=== PATIENT | female | born 1965 | race Caucasian/White ===

== ENCOUNTER → 2017-06-21 | Outpatient (CLI) | payer OTHER ==
[2016-07-21 16:15] VITALS: BP 130/54
[~2017-06-21] MED LIST: NS 100 ML IV 100 ML IV ONE
[2017-06-21 11:33] LABS: BASOPHILS # (AUTO) 0.1 X10^3/uL (0.0-0.1); BASOPHILS % (AUTO) 0.8 % (0.2-1.0); EOSINOPHILS % (AUTO) 0.3 % (0.9-2.9); HEMATOCRIT 35.3 % (36.0-47.0); HEMOGLOBIN 11.9 g/dL (12.0-16.0); LYMPHOCYTES # (AUTO) 1.7 X10^3/uL (1.3-2.9); LYMPHOCYTES % (AUTO) 19.8 % (21.0-51.0); MEAN CORPUSCULAR HEMOGLOBIN 27.9 pg (27.0-34.0); MEAN CORPUSCULAR HGB CONC 33.6 g/dL (33.0-35.0); MEAN CORPUSCULAR VOLUME 82.9 fL (80.0-100.0); MEAN PLATELET VOLUME 6.9 fL (7.4-11.0); MONOCYTES # (AUTO) 0.6 x10^3/uL (0.3-0.8); MONOCYTES % (AUTO) 6.9 % (0.0-13.0); NEUTROPHILS # (AUTO) 6.3 x10^3/uL (2.2-4.8); NEUTROPHILS % (AUTO) 72.2 % (42.0-75.0); PLATELET COUNT 582 X10^3/uL (150.0-450.0); RED BLOOD COUNT 4.26 X10^6/uL (3.5-5.4); RED CELL DISTRIBUTION WIDTH 17.2 % (11.6-16.5); WHITE BLOOD COUNT 8.7 X10^3/uL (3.6-10.0)
[2017-06-21 11:38] LABS: ALANINE AMINOTRANSFERASE 47 Units/L (12-78); ALKALINE PHOSPHATASE 95 Units/L (46-116); ASPARTATE AMINO TRANSFERASE 35 Units/L (15-37); BLOOD UREA NITROGEN 16 mg/dL (7-18); CALCIUM 9.2 mg/dL (8.5-10.1); CARBON DIOXIDE 24.1 mmol/L (21-32); CHLORIDE 107 mmol/L (98-107); CREATININE 0.91 mg/dL (0.55-1.02); SODIUM 142 mmol/L (136-145); TOTAL PROTEIN 7.4 g/dL (6.4-8.2); eGFR BLACK RACES > 60 (>60); eGFR NON BLACK RACES > 60 (>60)
[2017-06-21 11:39] LABS: ALBUMIN 2.9 g/dL (3.4-5.0); COR CA(FOR HYPOALB) 10.1 mg/dL (8.5-10.1)
== END | disposition home or self-care (01) | DRG 204 ==
LOC: RAD 10:47
PROVIDERS: ATTEND Internal Medicine
DX: R06.02 Shortness of breath (principal); R50.9 Fever, unspecified; Z87.09 Personal history of other diseases of the respiratory system; J47.9 Bronchiectasis, uncomplicated
CPT/HCPCS: 36415; 71260; 80053; 85025; A4222

== ENCOUNTER 2018-06-05 11:50 | Observation (INO) ==
[2018-06-05 13:45] LABS: BASOPHILS % (AUTO) 0.7 % (0.2-1.0); EOSINOPHILS # (AUTO) 0.2 x10^3/uL (0.0-0.2); HEMATOCRIT 39.7 % (36.0-47.0); HEMOGLOBIN 13.1 g/dL (12.0-16.0); LYMPHOCYTES # (AUTO) 0.7 X10^3/uL (1.3-2.9); LYMPHOCYTES % (AUTO) 12.7 % (21.0-51.0); MEAN CORPUSCULAR HEMOGLOBIN 24.5 pg (27.0-34.0); MEAN CORPUSCULAR HGB CONC 32.9 g/dL (33.0-35.0); MEAN CORPUSCULAR VOLUME 74.5 fL (80.0-100.0); MEAN PLATELET VOLUME 7.2 fL (7.4-11.0); MONOCYTES # (AUTO) 0.5 x10^3/uL (0.3-0.8); MONOCYTES % (AUTO) 8.9 % (0.0-13.0); NEUTROPHILS # (AUTO) 4.4 x10^3/uL (2.2-4.8); NEUTROPHILS % (AUTO) 74.7 % (42.0-75.0); PLATELET COUNT 331 X10^3/uL (150.0-450.0); RED BLOOD COUNT 5.33 X10^6/uL (3.5-5.4); RED CELL DISTRIBUTION WIDTH 22.5 % (11.6-16.5); WHITE BLOOD COUNT 5.9 X10^3/uL (3.6-10.0)
[2018-06-05] MEDS: NS 1000 ML 1,000 ML IV SCH (13:49)
[2018-06-05 13:57] LABS: ALANINE AMINOTRANSFERASE 42 Units/L (12-78); ALBUMIN 3.4 g/dL (3.4-5.0); ALKALINE PHOSPHATASE 92 Units/L (46-116); ASPARTATE AMINO TRANSFERASE 28 Units/L (15-37); BLOOD UREA NITROGEN 7 mg/dL (7-18); CARBON DIOXIDE 29.7 mmol/L (21-32); CHLORIDE 105 mmol/L (98-107); CREATININE 0.93 mg/dL (0.55-1.02); SODIUM 143 mmol/L (136-145); TOTAL PROTEIN 7.9 g/dL (6.4-8.2); eGFR NON BLACK RACES > 60 (>60)
[2018-06-05] MEDS ORDERED: PHARMACY CONSULT - DOSE _____ XX SCH (14:00)
[2018-06-05 14:21] LABS: ANISOCYTOSIS 2+; PLATELET MORPHOLOGY COMMENT NORMAL (NORMAL)
[2018-06-05 14:45] VITALS: BMI 28.5
[2018-06-05] MEDS: ZOVIRAX IV SCH ×2 (14:57→21:32)
[2018-06-05] MEDS: NS IV SCH ×2 (14:57→21:32)
[2018-06-05] MEDS ORDERED: NS IV SCH (15:00)
[2018-06-05] MEDS ORDERED: ZOVIRAX IV SCH (15:00)
[2018-06-05] MEDS ORDERED: NEURONTIN CAP 300 MG PO ONE (15:26)
[2018-06-05] MEDS: NEURONTIN CAP 300 MG PO SCH ×2 (15:27→21:28)
[2018-06-06] MEDS: NS 1000 ML 1,000 ML IV SCH ×3 (04:00→21:02)
[2018-06-06 05:10] LABS: BASOPHILS % (AUTO) 0.8 % (0.2-1.0); EOSINOPHILS # (AUTO) 0.1 x10^3/uL (0.0-0.2); EOSINOPHILS % (AUTO) 3.1 % (0.9-2.9); HEMATOCRIT 35.4 % (36.0-47.0); HEMOGLOBIN 11.8 g/dL (12.0-16.0); LYMPHOCYTES # (AUTO) 1.1 X10^3/uL (1.3-2.9); LYMPHOCYTES % (AUTO) 21.9 % (21.0-51.0); MEAN CORPUSCULAR HEMOGLOBIN 24.5 pg (27.0-34.0); MEAN CORPUSCULAR HGB CONC 33.4 g/dL (33.0-35.0); MEAN CORPUSCULAR VOLUME 73.3 fL (80.0-100.0); MEAN PLATELET VOLUME 7.4 fL (7.4-11.0); MONOCYTES # (AUTO) 0.8 x10^3/uL (0.3-0.8); MONOCYTES % (AUTO) 15.9 % (0.0-13.0); NEUTROPHILS # (AUTO) 2.8 x10^3/uL (2.2-4.8); NEUTROPHILS % (AUTO) 58.3 % (42.0-75.0); PLATELET COUNT 294 X10^3/uL (150.0-450.0); RED BLOOD COUNT 4.83 X10^6/uL (3.5-5.4); RED CELL DISTRIBUTION WIDTH 21.8 % (11.6-16.5); WHITE BLOOD COUNT 4.8 X10^3/uL (3.6-10.0)
[2018-06-06 05:25] LABS: ALANINE AMINOTRANSFERASE 35 Units/L (12-78); ALBUMIN 2.9 g/dL (3.4-5.0); ALKALINE PHOSPHATASE 81 Units/L (46-116); ASPARTATE AMINO TRANSFERASE 24 Units/L (15-37); BLOOD UREA NITROGEN 6 mg/dL (7-18); CALCIUM 8.4 mg/dL (8.5-10.1); CARBON DIOXIDE 27.6 mmol/L (21-32); CHLORIDE 107 mmol/L (98-107); COR CA(FOR HYPOALB) 9.3 mg/dL (8.5-10.1); CREATININE 0.78 mg/dL (0.55-1.02); SODIUM 143 mmol/L (136-145); TOTAL PROTEIN 6.9 g/dL (6.4-8.2); eGFR NON BLACK RACES > 60 (>60)
[2018-06-06] MEDS: NEURONTIN CAP 300 MG PO SCH ×3 (05:25→21:29)
[2018-06-06] MEDS: ZOVIRAX IV SCH ×3 (05:25→21:32)
[2018-06-06] MEDS: NS IV SCH ×3 (05:25→21:32)
[2018-06-06 05:37] LABS: ANISOCYTOSIS 1+; HYPOCHROMASIA SLIGHT; MICROCYTOSIS SLIGHT; PLATELET MORPHOLOGY COMMENT NORMAL (NORMAL)
[2018-06-06] MEDS: PriLOSEC PO SCH ×2 (10:03→21:30)
[2018-06-06] MEDS: [UNRECOGNIZED DRUG - OTHER] PO SCH (10:03)
[2018-06-06] MEDS: SYNTHROID 150 mcg TAB PO SCH (10:03)
[2018-06-06] MEDS: PREDNISONE TAB 5 MG PO SCH (10:03)
[2018-06-06] MEDS ORDERED: XYLOCAINE OINT 5% TOP PRN (10:38)
[2018-06-06] MEDS: ZOVIRAX EXT SCH ×2 (10:51→21:43)
--- NOTE | 2018-06-06 21:16 | DR.H&P ---
H&P - History & Physical for Day of: H&P Date: 06/05/18 - Chief Complaint Chief Complaint: SHINGLES - History of Present Illness History of Present Illness: IS A 53 YEAR OLD PATIENT OF OURS WHO PRESENTED TO THE HOSPITAL A DIRECT ADMISSION FOR AN EXACERBATION OF SHINGLES. PATIENT REPORTS THAT SHE NOTICED BLISTERS ON HER CHEST TUESDAY. BY TUESDAY, THEY HAD BEGAN TO SPREAD TO THE FLANK AND RIGHT SIDE BACK. SHE BEGAN WITH PAIN TO AREA ON TUESDAY. SHE REPORTS THAT SHE WAS PRESCRIBED VALTREX IN THE ER OVER THE WEEKEND, BUT RASH CONTINUED TO SPREAD. 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 SHE WAS ADMITTED FOR TREATMENT WITH IV ACYCLOVIR AND STEROIDS. ON ADMISSION, VITALS WERE 98.9-110-20-97%-137/83. LABS WERE OBTAINED. SHE IS HEMODYNAMICALLY STABLE. WE PLAN TO FOLLOW UP WITH AM LABS AND CONTINUE TO MONITOR PATIENT. - Past Medical History Additional Medical History: LUNG CANCER WITH METS TO THE BREAST AND BRAIN - Past Surgical History Surgical History: TAX APPRAISER Surgery, Thyroidectomy - Family History Family Medical History: Diabetes Mellitus, Cancer, Heart Failure, Hypertension - Social History Does any household member use tobacco: No Alcohol Use: None Drug Use: None - Medications Home Medications: laytex Adverse Reaction (Uncoded 06/05/18 13:52) CONTINUE taking the following medications brigatinib [Alunbrig] 1 tab PO DAILY 06/05/18 [History] gabapentin 1 cap PO TID 06/05/18 [History] levothyroxine [Synthroid] 1 tab PO DAILY 06/05/18 [History] omeprazole 1 cap PO BID 06/05/18 [History] prednisone 1 tab PO DAILY 06/05/18 [History] valacyclovir 1 tab PO TID 06/05/18 [History] - Review of Systems Constitutional: No Symptoms Reported Eyes: No Symptoms Reported ENT: No Symptoms Reported Respiratory: No Symptoms Reported Cardiovascular: No Symptoms Reported Gastrointestinal: No Symptoms Reported Genitourinary: No Symptoms Reported Musculoskeletal: No Symptoms Reported Skin: See HPI, Lesions, Wound Neurological: No Symptoms Reported - Physical Exam Vital Signs: Temperature 98 F Pulse Rate [Left Brachial] 89 Respiratory Rate 18 Blood Pressure [Right Arm] 132/50 Blood Pressure [Left Arm] 137/77 Blood Pressure 130/54 O2 Sat by Pulse Oximetry 97 Oriented: Normal Eyes: Normal Ear: Normal Nose: Normal Throat: Normal Respiratory: Clear Throughout Cardiovascular: Normal : Normal Auscultation: Bowel Sounds: Normal Palpation: Normal Tenderness: Normal Skin: Rash, Vesicular, Red, Wound Musculoskeletal: Normal Psychiatric: Normal Mood Description: Calm Affect: Normal Speech Pattern: Clear - Assessment/Plan (1) Shingles rash Qualifiers: Herpes zoster complications: without complications Qualified Code(s): B02.9 - Zoster without complications Status: Acute Plan: ACYCLOVIR IV, PREDNISONE, CONTINUE TO MONITOR - Allergies Allergies/Adverse Reactions: Allergies Allergy/AdvReac Type Severity Reaction Status Date / Time laytex AdvReac Uncoded 06/05/18 13:52
[2018-06-07 05:20] LABS: BASOPHILS % (AUTO) 0.8 % (0.2-1.0); EOSINOPHILS # (AUTO) 0.2 x10^3/uL (0.0-0.2); EOSINOPHILS % (AUTO) 3.8 % (0.9-2.9); HEMATOCRIT 34.8 % (36.0-47.0); HEMOGLOBIN 11.6 g/dL (12.0-16.0); LYMPHOCYTES # (AUTO) 1.1 X10^3/uL (1.3-2.9); LYMPHOCYTES % (AUTO) 21.5 % (21.0-51.0); MEAN CORPUSCULAR HEMOGLOBIN 24.5 pg (27.0-34.0); MEAN CORPUSCULAR HGB CONC 33.2 g/dL (33.0-35.0); MEAN CORPUSCULAR VOLUME 73.7 fL (80.0-100.0); MEAN PLATELET VOLUME 7.5 fL (7.4-11.0); MONOCYTES # (AUTO) 0.8 x10^3/uL (0.3-0.8); MONOCYTES % (AUTO) 16.2 % (0.0-13.0); NEUTROPHILS # (AUTO) 2.8 x10^3/uL (2.2-4.8); NEUTROPHILS % (AUTO) 57.7 % (42.0-75.0); PLATELET COUNT 282 X10^3/uL (150.0-450.0); RED BLOOD COUNT 4.72 X10^6/uL (3.5-5.4); RED CELL DISTRIBUTION WIDTH 21.9 % (11.6-16.5); WHITE BLOOD COUNT 4.9 X10^3/uL (3.6-10.0)
[2018-06-07] MEDS: ZOVIRAX EXT SCH (05:28)
[2018-06-07] MEDS: ZOVIRAX IV SCH (05:28)
[2018-06-07] MEDS: NS IV SCH (05:28)
[2018-06-07] MEDS: NEURONTIN CAP 300 MG PO SCH (05:28)
[2018-06-07 05:39] LABS: ANISOCYTOSIS 1+; PLATELET MORPHOLOGY COMMENT NORMAL (NORMAL)
[2018-06-07 05:40] LABS: ALANINE AMINOTRANSFERASE 37 Units/L (12-78); ALBUMIN 2.9 g/dL (3.4-5.0); ALKALINE PHOSPHATASE 80 Units/L (46-116); ASPARTATE AMINO TRANSFERASE 24 Units/L (15-37); BLOOD UREA NITROGEN 4 mg/dL (7-18); CALCIUM 8.6 mg/dL (8.5-10.1); CARBON DIOXIDE 27.6 mmol/L (21-32); CHLORIDE 108 mmol/L (98-107); COR CA(FOR HYPOALB) 9.5 mg/dL (8.5-10.1); CREATININE 0.76 mg/dL (0.55-1.02); SODIUM 143 mmol/L (136-145); TOTAL PROTEIN 6.7 g/dL (6.4-8.2); eGFR NON BLACK RACES > 60 (>60)
[2018-06-07] MEDS: NS 1000 ML 1,000 ML IV SCH (05:43)
--- NOTE | 2018-06-07 08:02 | PCM.PROG ---
Progress Note - Progress Note for Day of Date of Exam: 06/06/18 - Subjective Subjective: WAS ADMITTED FOR AN ACUTE OUTBREAK OF SHINGLES THAT HAS PROGRESSIVELY GOTTEN WORSE DESPITE OUTPATIENT TREATMENT. TODAY, SHE IS ALERT AND ORIENTED, LYING IN BED ON MORNING ROUNDS. SHE CONTINUES WITH LESIONS AND PAIN TO THE RIGHT CHEST, FLANK, AND UPPER BACK. HER VITALS TODAY ARE 98.0-89-20- 98%-147/78. SHE IS HEMODYNAMICALLY STABLE TODAY. SHE CONTINUES ON IV ACYCLOVIR WELL GABAPENTIN 300MG PO TID. TODAY, WE WILL RESUME HER HOME MEDICATIONS WHICH INCLUDE PREDNISONE 5MG PO DAILY. WE WILL ALSO START ACYCLOVIR 1 APPLICATION TOPICAL EVERY 8 HOURS. OTHERWISE, WE WILL FOLLOW UP WITH AM LABS AND CONTINUE TO MONITOR PATIENT. - Past Medical Family Social History Past Med/Fam/Surg Hx: No changes since H&P Allergies: Allergies laytex Adverse Reaction (Uncoded 06/05/18 13:52) - Review of Systems ROS: No change since H&P - Vital Signs and I&O's Vital Signs: Temperature 98.1 F Pulse Rate [Left Brachial] 69 Respiratory Rate 18 Blood Pressure [Right Arm] 132/50 Blood Pressure [Left Arm] 148/79 Blood Pressure 130/54 O2 Sat by Pulse Oximetry 98 Intake and Output: Intake & Output 06/04/18 06/05/18 06/06/18 06/07/18 11:59 11:59 11:59 11:59 Intake Total 2780 / 2780 6393 / 6393 Output Total 0 / 0 Balance 2780 / 2780 6393 / 6393 - Physical Exam Oriented: Normal Eyes: Normal Ear: Normal Nose: Normal Throat: Normal Cardiovascular: Normal : Normal Auscultation: Bowel Sounds: Normal Palpation: Normal Tenderness: Normal Skin: Rash, Vesicular, Red, Wound Musculoskeletal: Normal Psychiatric: Normal Mood Description: Calm Affect: Normal Speech Pattern: Clear - Laboratory and Diagnostics Result Diagrams: 06/07/18 04:40 06/07/18 04:40 Labs: Laboratory WBC 4.9 X10^3/uL (3.6-10.0) 06/07/18 04:40 RBC 4.72 X10^6/uL (3.5-5.4) 06/07/18 04:40 Hgb 11.6 g/dL (12.0-16.0) L 06/07/18 04:40 Hct 34.8 % (36.0-47.0) L 06/07/18 04:40 MCV 73.7 fL (80.0-100.0) L 06/07/18 04:40 MCH 24.5 pg (27.0-34.0) L 06/07/18 04:40 MCHC 33.2 g/dL (33.0-35.0) 06/07/18 04:40 RDW 21.9 % (11.6-16.5) H 06/07/18 04:40 Plt Count 282 X10^3/uL (150.0-450.0) 06/07/18 04:40 Plt Count Comment Adequate (ADEQUATE) 06/07/18 04:40 MPV 7.5 fL (7.4-11.0) 06/07/18 04:40 Neut % (Auto) 57.7 % (42.0-75.0) 06/07/18 04:40 Lymph % (Auto) 21.5 % (21.0-51.0) 06/07/18 04:40 [place] % (Auto) 16.2 % (0.0-13.0) H 06/07/18 04:40 Eos % (Auto) 3.8 % (0.9-2.9) H 06/07/18 04:40 Baso % (Auto) 0.8 % (0.2-1.0) 06/07/18 04:40 Neut # (Auto) 2.8 x10^3/uL (2.2-4.8) 06/07/18 04:40 Lymph # (Auto) 1.1 X10^3/uL (1.3-2.9) L 06/07/18 04:40 [place] # (Auto) 0.8 x10^3/uL (0.3-0.8) 06/07/18 04:40 Eos # (Auto) 0.2 x10^3/uL (0.0-0.2) 06/07/18 04:40 Baso # (Auto) 0.0 X10^3/uL (0.0-0.1) 06/07/18 04:40 Absolute Nucleated RBC 0.0 /100WBC 06/07/18 04:40 Plt Morphology Comment Normal (NORMAL) 06/07/18 04:40 RBC Morphology Abnormal (NORMAL) A 06/07/18 04:40 Hypochromasia Slight A 06/06/18 04:30 Anisocytosis 1+ A 06/07/18 04:40 Microcytosis Slight A 06/06/18 04:30 Sodium 143 mmol/L (136-145) 06/07/18 04:40 Corrected Sodium TNP 06/07/18 04:40 Potassium 4.5 mmol/L (3.5-5.1) 06/07/18 04:40 Chloride 108 mmol/L (98-107) H 06/07/18 04:40 Carbon Dioxide 27.6 mmol/L (21-32) 06/07/18 04:40 BUN 4 mg/dL (7-18) L 06/07/18 04:40 Creatinine 0.76 mg/dL (0.55-1.02) 06/07/18 04:40 Est GFR (MDRD) Af Amer > 60 (>60) 06/07/18 04:40 Est GFR (MDRD) Non-Af > 60 (>60) 06/07/18 04:40 Glucose 94 mg/dL (65-99) 06/07/18 04:40 Calcium 8.6 mg/dL (8.5-10.1) 06/07/18 04:40 Corrected Calcium 9.5 mg/dL (8.5-10.1) 06/07/18 04:40 Total Bilirubin 0.20 mg/dL (0.2-1.0) 06/07/18 04:40 AST 24 Units/L (15-37) 06/07/18 04:40 ALT 37 Units/L (12-78) 06/07/18 04:40 Alkaline Phosphatase 80 Units/L (46-116) 06/07/18 04:40 Total Protein 6.7 g/dL (6.4-8.2) 06/07/18 04:40 Albumin 2.9 g/dL (3.4-5.0) L 06/07/18 04:40 Globulin 3.8 g/dL (2.5-4.5) 06/07/18 04:40 Albumin/Globulin Ratio 0.8 Ratio (1.1-2.1) L 06/07/18 04:40 - Plan (1) Shingles rash Status: Acute Qualifiers: Herpes zoster complications: without complications Qualified Code(s): B02.9 - Zoster without complications Plan: ACYCLOVIR IV, PREDNISONE, GABAPENTIN, ACYCLOVIR TOPICAL OINTMENT, CONTINUE TO MONITOR
[2018-06-07] MEDS: PREDNISONE TAB 5 MG PO SCH (10:11)
[2018-06-07] MEDS: [UNRECOGNIZED DRUG - OTHER] PO SCH (10:11)
[2018-06-07] MEDS: SYNTHROID 150 mcg TAB PO SCH (10:11)
[2018-06-07] MEDS: PriLOSEC PO SCH (10:11)
[2018-06-07 10:53] VITALS: BP 135/79
--- NOTE | 2018-07-18 00:24 | DR.CARTERD ---
- Discharge Summary for: Discharge Summary for Date of:: 06/07/18 - Admission Date Date of Admission: 06/05/18 - Admission Diagnoses Admission Diagnosis: (1) Exacerbation of Shingles rash (2) Body pain - Discharge Date Discharge Date: 06/07/18 - Discharge Diagnoses Discharge Diagnosis: (1) Exacerbation of Shingles rash (2) Body pain - Hospital Course Hospital Course: DAY ONE, MS. MALIN IS A 53 YEAR OLD PATIENT OF OURS WHO PRESENTED TO THE HOSPITAL A DIRECT ADMISSION FOR AN EXACERBATION OF SHINGLES. PATIENT REPORTED THAT SHE NOTICED BLISTERS ON HER CHEST TUESDAY. BY TUESDAY, THEY HAD BEGAN TO SPREAD TO THE FLANK AND RIGHT SIDE BACK. SHE BEGAN WITH PAIN TO AREA ON TUESDAY. SHE REPORTED THAT SHE WAS PRESCRIBED VALTREX IN THE ER OVER THE WEEKEND, BUT RASH CONTINUED TO SPREAD. 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 SHE WAS ADMITTED FOR TREATMENT WITH IV ACYCLOVIR AND STEROIDS. ON ADMISSION, VITALS WERE 98.9-110-20-97%-137/83. LABS WERE OBTAINED. SHE WAS HEMODYNAMICALLY STABLE. WE CONTINUED TO MONITOR PATIENT. DAY TWO, MS. MALIN WAS ADMITTED FOR AN ACUTE OUTBREAK OF SHINGLES THAT HAD PROGRESSIVELY GOTTEN WORSE DESPITE OUTPATIENT TREATMENT. SHE WAS ALERT AND ORIENTED, LYING IN BED ON MORNING ROUNDS. SHE CONTINUED WITH LESIONS AND PAIN TO THE RIGHT CHEST, FLANK, AND UPPER BACK. HER VITALS TODAY WERE 98.0-89-20-98%-147/78. SHE WAS HEMODYNAMICALLY STABLE. SHE CONTINUED ON IV ACYCLOVIR WELL GABAPENTIN 300MG PO TID. WE RESUMED HER HOME MEDICATIONS WHICH INCLUDED PREDNISONE 5MG PO DAILY. WE ALSO STARTED ACYCLOVIR 1 APPLICATION TOPICAL EVERY 8 HOURS. WE CONTINUED TO MONITOR PATIENT. DAY THREE, PATIENT REPORTED SHE FELT BETTER. LESIONS WERE NOT NOTED WITH ANY MORE SPREADING. SHE REPORTED PAIN WAS IMPROVED. VITAL SIGNS STABLE. LABS WNL. WE PLANNED FOR DISCHARGE. INSTRUCTIONS FOR MEDICATIONS AND FOLLOW UP WERE DISCUSSED WITH PATIENT AND FAMILY, BOTH VOICED UNDERSTANDING. PATIENT DISCHARGED HOME IN STABLE CONDITION WITH FAMILY. - Discharge Medications Discharge Medications: Home Medication List brigatinib 1 tab PO DAILY 06/05/18 [History] gabapentin 1 cap PO TID 06/05/18 [History] levothyroxine 1 tab PO DAILY 06/05/18 [History] omeprazole 1 cap PO BID 06/05/18 [History] prednisone 1 tab PO DAILY 06/05/18 [History] acyclovir [Zovirax] 1 applic EXT TID #1 g 06/07/18 [Rx] gabapentin 300 mg PO TID #90 cap 06/07/18 [Rx] lidocaine 1 applic TOP TID #1 g 06/07/18 [Rx] valacyclovir 1 tab PO TID #30 tab 06/07/18 [Rx] Prescriptions: acyclovir [Zovirax] Leonardo Falcon gabapentin Leonardo Falcon lidocaine Leonardo Falcon valacyclovir Leonardo Falcon - Discharge Disposition Discharge Disposition: PATIENT IS TO FOLLOW UP IN OUR OFFICE IN ONE WEEK.
== END 2018-06-07 11:37 | disposition home or self-care (01) ==
LOC: MED/SURG
PROVIDERS: ADMIT Internal Medicine; ATTEND Internal Medicine
DX: C79.31 Secondary malignant neoplasm of brain; E03.8 Other specified hypothyroidism; B02.8 Zoster with other complications; Z85.118 Personal history of other malignant neoplasm of bronchus and lung; C79.81 Secondary malignant neoplasm of breast; Z79.899 Other long term (current) drug therapy
CPT/HCPCS: 36415; 80053; 85025; A4216; A4222; G0378; J0133; J7030; J7050; J7512

== ENCOUNTER 2019-04-03 10:47 | Observation (INO) ==
[2019-04-03 10:57] VITALS: BMI 32.1
[2019-04-03] MEDS ORDERED: MORPHINE SULFATE INJ 4 MG IVP ONE ×2 (11:48→12:02)
[2019-04-03] MEDS ORDERED: MORPHINE SULFATE INJ 4 MG ONE ×2 (11:53→11:59)
[2019-04-03 11:58] LABS: BASOPHILS % (AUTO) 0.2 % (0.2-1.0); EOSINOPHILS % (AUTO) 0.2 % (0.9-2.9); HEMATOCRIT 35.3 % (36.0-47.0); HEMOGLOBIN 11.9 g/dL (12.0-16.0); LYMPHOCYTES # (AUTO) 0.9 X10^3/uL (1.3-2.9); MEAN CORPUSCULAR HGB CONC 33.8 g/dL (33.0-35.0); MEAN CORPUSCULAR VOLUME 85.7 fL (80.0-100.0); MEAN PLATELET VOLUME 7.7 fL (7.4-11.0); MONOCYTES # (AUTO) 0.8 x10^3/uL (0.3-0.8); MONOCYTES % (AUTO) 10.4 % (0.0-13.0); NEUTROPHILS % (AUTO) 77.2 % (42.0-75.0); PLATELET COUNT 285 X10^3/uL (150.0-450.0); RED BLOOD COUNT 4.12 X10^6/uL (3.5-5.4); RED CELL DISTRIBUTION WIDTH 20.1 % (11.6-16.5); WHITE BLOOD COUNT 7.7 X10^3/uL (3.6-10.0)
--- NOTE | 2019-04-03 12:01 | ED.ABDFE ---
HPI Time Seen Time Seen by Provider: 04/03/19 11:29 PCP Primary Care Physician: NAILA ORTIZ HPI Comment HPI Comment: Patient presents with complaint of stomach pain associated with nausea. She denies vomiting or diarrhea. She admits to a history of lung cancer. Complaint Doctors Chief Complaint Comments: Stomach pain Chief Complaint:: SINCE ABOUT 11PM LAST NIGHT PT HAS HAD SUDDEN ONSET OF SEVERE PAIN INTO MID ABDOMEN DESCRIBED CONSTANT CRAMPY ACHING ASSOCIATED WITH DIARRHEA. DENIES NAUSEA. Source History Provided: Patient Mode of arrival Mode of Arrival: Ambulatory Timing Onset of Chief Complaint: 04/03/19 PMH PMH Past Medical History: Yes Past Medical History: GERD, Hypothyroidism and PUD Past Medical History Comment: LUNG CANCER, BREAST CANCER, LIVER CANCER, BRAIN CANCER Past Surgical History: Yes Surgical History: Ectopic and Thyroidectomy Family History History of Family Medical Conditions: Yes Family Medical History: Coronary Artery Disease and Hypertension Social History Does patient currently use any type of tobacco product: No Have you used tobacco products in the last 12 months: No Type of Tobacco Use: None Does any household member use tobacco: No Alcohol Use: None Do you use any recreational Drugs:: No Lives With: Family Lives Where: Home infectious screening In the last 2 months have you had wt loss of >10#?: NO Have you had fever, night sweats or hemotysis?: No Have you traveled outside the country in the last 6 months?: No Isolation: Standard ROS Review of Systems Constitutional: No Symptoms Reported Eyes: No Symptoms Reported ENTM: No Symptoms Reported Respiratoy: No Symptoms Reported and Non-Productive Cough Gastrointestinal/Abdominal: See HPI Genitourinary: No Symptoms Reported Neurological: No Symptoms Reported Musculoskeletal: No Symptoms Reported Integumentary: No Symptoms Reported Hematologic/Lymphatic: No Symptoms Reported Endocrine: No Symptoms Reported Psychiatric: No Symptoms Reported All Other Systems: Reviewed and Negative PE Vital Signs Vitals: Temperature 97.8 F Pulse Rate 88 Respiratory Rate 20 Blood Pressure [Right Arm] 135/79 Blood Pressure [Left Arm] 148/79 Blood Pressure 151/85 O2 Sat by Pulse Oximetry 98 General Limitations: No Limitations General Appearance: Anxious Head Head Exam: Normal Inspection, Atraumatic and Normocephalic Eyes Eye exam: Normal Appearance, PERRL and EOMI ENT ENT Exam: Normal Exam and Normal External Ear Exam Neck Neck Exam: Normal Inspection and Full ROM Chest Chest Inspection: Normal Inspection and Symmetric Chest Wall Rise Respiratory Respiratory Exam: Normal Lung Sounds Bilat Respiratory Exam: Bilateral: Clear to Auscultation Cardiovascular Cardiovascular Exam: Regular Rate and Normal Rhythm Abdominal Exam Abdominal Exam: Normal Inspection, Normal Bowel Sounds, Soft and Tenderness Abdominal Tenderness: Diffuse and Mild Rectal Rectal Exam: Deferred Back Back Exam: Full ROM Extremeties Extremities Exam: Normal Inspection and Full ROM External Exam: Female: Deferred : Bimanual Exam (female): Deferred Neurologic Neurological Exam: Alert, Oriented X3 and CN II-XII Intact Psychiatric Psychiatric Exam: Normal Affect and Normal Mood Skin Skin Exam: Warm, Dry and Intact COURSE Consultation Called: 12:46 Consultation Comments: Dr. Macdonald agreed to admit for surgery of acute appendicitis; she will be admitted to the service of Dr. Falcon. Dr. Falcon agreed to admit for further treatment. [facility] Labs Reviewed Laboratory Results Reviewed?: Yes Result Diagrams: 04/03/19 11:46 04/03/19 11:46 Laboratory: WBC 7.7 X10^3/uL (3.6-10.0) 04/03/19 11:46 RBC 4.12 X10^6/uL (3.5-5.4) 04/03/19 11:46 Hgb 11.9 g/dL (12.0-16.0) L 04/03/19 11:46 Hct 35.3 % (36.0-47.0) L 04/03/19 11:46 MCV 85.7 fL (80.0-100.0) 04/03/19 11:46 MCH 29.0 pg (27.0-34.0) 04/03/19 11:46 MCHC 33.8 g/dL (33.0-35.0) 04/03/19 11:46 RDW 20.1 % (11.6-16.5) H 04/03/19 11:46 Plt Count 285 X10^3/uL (150.0-450.0) 04/03/19 11:46 Plt Count Comment Adequate (ADEQUATE) 04/03/19 11:46 MPV 7.7 fL (7.4-11.0) 04/03/19 11:46 Neut % (Auto) 77.2 % (42.0-75.0) H 04/03/19 11:46 Lymph % (Auto) 12.0 % (21.0-51.0) L 04/03/19 11:46 [place] % (Auto) 10.4 % (0.0-13.0) 04/03/19 11:46 Eos % (Auto) 0.2 % (0.9-2.9) L 04/03/19 11:46 Baso % (Auto) 0.2 % (0.2-1.0) 04/03/19 11:46 Neut # (Auto) 6.0 x10^3/uL (2.2-4.8) H 04/03/19 11:46 Lymph # (Auto) 0.9 X10^3/uL (1.3-2.9) L 04/03/19 11:46 [place] # (Auto) 0.8 x10^3/uL (0.3-0.8) 04/03/19 11:46 Eos # (Auto) 0.0 x10^3/uL (0.0-0.2) 04/03/19 11:46 Baso # (Auto) 0.0 X10^3/uL (0.0-0.1) 04/03/19 11:46 Absolute Nucleated RBC 0.0 /100WBC 04/03/19 11:46 Plt Morphology Comment Normal (NORMAL) 04/03/19 11:46 RBC Morphology Abnormal (NORMAL) A 04/03/19 11:46 Anisocytosis 1+ A 04/03/19 11:46 INR Target Range - 04/03/19 11:46 INR 0.98 (0.8-1.3) 04/03/19 11:46 APTT 38.9 SECONDS (22.9-36.5) H 04/03/19 11:46 PTT Comment - 04/03/19 11:46 Sodium 141 mmol/L (136-145) 04/03/19 11:46 Corrected Sodium TNP 04/03/19 11:46 Potassium 4.3 mmol/L (3.5-5.1) 04/03/19 11:46 Chloride 104 mmol/L (98-107) 04/03/19 11:46 Carbon Dioxide 28.6 mmol/L (21-32) 04/03/19 11:46 BUN 12 mg/dL (7-18) 04/03/19 11:46 Creatinine 0.86 mg/dL (0.55-1.02) 04/03/19 11:46 Est GFR (MDRD) Af Amer > 60 (>60) 04/03/19 11:46 Est GFR (MDRD) Non-Af > 60 (>60) 04/03/19 11:46 Glucose 96 mg/dL (65-99) 04/03/19 11:46 Calcium 10.2 mg/dL (8.5-10.1) H 04/03/19 11:46 Corrected Calcium TNP 04/03/19 11:46 Total Bilirubin 0.20 mg/dL (0.2-1.0) 04/03/19 11:46 AST 39 Units/L (15-37) H 04/03/19 11:46 ALT 77 Units/L (12-78) 04/03/19 11:46 Alkaline Phosphatase 121 Units/L (46-116) H 04/03/19 11:46 C-Reactive Protein 11.40 mg/L (0-3.0) H 04/03/19 11:46 Total Protein 8.6 g/dL (6.4-8.2) H 04/03/19 11:46 Albumin 3.9 g/dL (3.4-5.0) 04/03/19 11:46 Globulin 4.7 g/dL (2.5-4.5) H 04/03/19 11:46 Albumin/Globulin Ratio 0.8 Ratio (1.1-2.1) L 04/03/19 11:46 Amylase 125 Units/L (25-115) H 04/03/19 11:46 Lipase 274 Units/L (73-393) 04/03/19 11:46 Other Results Comments: Chest; No acute cardiopulmonary disease. XRAY XRAY Interpreted by: Radiologist Opioid Opioid Risk Tool Total: 0 Total Score Risk Category: Low Risk Copyright: Colby WINSLOW predicting aberrant behaviors
[2019-04-03 12:05] LABS: ALANINE AMINOTRANSFERASE 77 Units/L (12-78); ALBUMIN 3.9 g/dL (3.4-5.0); ALKALINE PHOSPHATASE 121 Units/L (46-116); AMYLASE 125 Units/L (25-115); ASPARTATE AMINO TRANSFERASE 39 Units/L (15-37); BLOOD UREA NITROGEN 12 mg/dL (7-18); CALCIUM 10.2 mg/dL (8.5-10.1); CARBON DIOXIDE 28.6 mmol/L (21-32); CHLORIDE 104 mmol/L (98-107); CREATININE 0.86 mg/dL (0.55-1.02); LIPASE 274 Units/L (73-393); SODIUM 141 mmol/L (136-145); TOTAL PROTEIN 8.6 g/dL (6.4-8.2); eGFR NON BLACK RACES > 60 (>60)
[2019-04-03] MEDS ORDERED: MORPHINE SULFATE INJ 4 MG IM ONE (12:05)
[2019-04-03 12:09] LABS: ANISOCYTOSIS 1+; PLATELET MORPHOLOGY COMMENT NORMAL (NORMAL)
--- NOTE | 2019-04-03 12:26 | CT ---
CT ABDOMEN AND PELVIS WITHOUT CONTRAST CLINICAL HISTORY: 53-year-old female with abdominal pain. History of breast and lung cancer. COMPARISON: None. TECHNIQUE: Multiple contiguous computed tomographic axial images of the abdomen and pelvis were obtained without the use of oral or intravenous contrast. Images were reformatted in the coronal and sagittal planes. Dose reduction techniques including Automated Exposure Control (AEC) and adjustment of mA and kV were utilized. FINDINGS: The lung bases demonstrate no evidence of focal air-space opacification, pleural effusion, pneumothorax, or suspicious pulmonary nodules. The imaged inferior mediastinum and heart are normal in appearance without evidence of pericardial effusion. The liver, gallbladder, pancreas, and spleen are within normal limits for noncontrast imaging. The adrenal glands and kidneys are normal bilaterally. There are no nephroureteral stones or perinephric fluid collections. There is no evidence of hydroureteronephrosis and the ureters run in an unobstructed course to a moderately distended urinary bladder. The uterus is anteverted and normal in size. The ovaries, vagina and perineum are within normal limits. Multiple pelvic phleboliths. Appendix is dilated measuring 1.3 cm and edematous with wall thickening and inflammation with surrounding inflammation of the mesoappendix. No free air free fluid to suggest perforation or abscess. Small and large bowel are without obstruction or inflammation. Diverticulosis without diverticulitis. There are no pathologically enlarged lymph nodes in the abdomen or pelvis. The arteriovascular structures are within normal limits for a study without contrast. Soft tissues are normal. The osseous structures are intact without fracture or malalignment. IMPRESSION: 1. Non perforated appendicitis. Surgical consultation is needed. 2. Diverticulosis without diverticulitis. 3. No acute intra-abdominal or intrapelvic process otherwise. Reported By:
[2019-04-03] MEDS ORDERED: NS 1000 ML 1,000 ML ONE (14:28)
[2019-04-03] MEDS ORDERED: ZOSYN VIAL 3.375 GRAMS IV ONE (14:29)
[2019-04-03] MEDS ORDERED: NS 100 ML IV + SPIKE MINIBAG* 100 ML ONE (14:29)
[2019-04-03] MEDS ORDERED: ZOSYN VIAL 3.375 GRAMS 3.375 G in NS 100 ML IV + SPIKE MINIBAG* 100 ML IV ONE (14:44)
--- NOTE | 2019-04-03 14:49 | RAD ---
Exam: Portable chest History: 53-year-old female. Evaluate for anesthesia risk. Comparison: Previous chest radiograph from 06/24/2015. Findings: Overall heart size and pulmonary vasculature within normal limits. Subsegmental atelectasis extends across the left mid lung. Otherwise lungs are clear with no infiltrate or significant effusion on either side. A right chest wall port is seen with the tip of the catheter extending to the superior vena cava. Bony thorax is unremarkable. Impression: No acute cardiopulmonary abnormality is seen on this exam Reported By:
[2019-04-03] MEDS ORDERED: NS 1000 ML 1,000 ML IV SCH ×2 (15:00)
[2019-04-03] MEDS ORDERED: FENTANYL INJ 100 mcg ONE (15:46)
[2019-04-03] MEDS ORDERED: MORPHINE SULFATE INJ 10 MG ONE (15:47)
[2019-04-03] MEDS ORDERED: DECADRON INJ ONE ×2 (15:47→15:48)
[2019-04-03] MEDS ORDERED: NEOSTIGMINE INJ ONE (15:48)
[2019-04-03] MEDS ORDERED: DIPRIVAN VIAL ONE (15:48)
[2019-04-03] MEDS ORDERED: ROBINUL ONE (15:48)
[2019-04-03] MEDS ORDERED: ZEMURON ONE (15:48)
[2019-04-03] MEDS ORDERED: QUELICIN (OR ANECTINE) ONE (15:48)
[2019-04-03] MEDS ORDERED: VERSED ONE (15:48)
[2019-04-03] MEDS ORDERED: XYLOCAINE 1 % (PLAIN) ONE (15:48)
[2019-04-03] MEDS ORDERED: TORADOL 30 MG VIAL ONE (15:48)
[2019-04-03] MEDS ORDERED: ZOFRAN INJ 4 MG VIAL ONE (15:48)
[2019-04-03] MEDS ORDERED: ULTANE GAS ONE (15:48)
[2019-04-03] MEDS ORDERED: AMIDATE INJ 40 MG VIAL ONE (16:42)
[2019-04-03] MEDS ORDERED: BACTROBAN TOPICAL OINT ONE (17:19)
[2019-04-03] MEDS: ZOSYN VIAL 3.375 GRAMS 3.375 G in NS 100 ML IV + SPIKE MINIBAG* 100 ML IV SCH ×2 (18:00→21:07)
[2019-04-03] MEDS: MORPHINE SULFATE INJ 4 MG IVP PRN (18:05)
[2019-04-03] MEDS: D5 1/2 NS 1000 ML 1,000 ML IV SCH (21:04)
[2019-04-04] MEDS: D5 1/2 NS 1000 ML 1,000 ML IV SCH ×2 (01:19→17:46)
[2019-04-04] MEDS: MORPHINE SULFATE INJ 4 MG IVP PRN ×5 (01:25→22:00)
[2019-04-04] MEDS: ZOSYN VIAL 3.375 GRAMS 3.375 G in NS 100 ML IV + SPIKE MINIBAG* 100 ML IV SCH ×3 (05:15→22:35)
[2019-04-04 05:45] LABS: BASOPHILS % (AUTO) 0 % (0.2-1.0); HEMATOCRIT 29.3 % (36.0-47.0); HEMOGLOBIN 10.2 g/dL (12.0-16.0); LYMPHOCYTES # (AUTO) 0.5 X10^3/uL (1.3-2.9); LYMPHOCYTES % (AUTO) 5.5 % (21.0-51.0); MEAN CORPUSCULAR HEMOGLOBIN 29.9 pg (27.0-34.0); MEAN CORPUSCULAR HGB CONC 34.9 g/dL (33.0-35.0); MEAN CORPUSCULAR VOLUME 85.6 fL (80.0-100.0); MEAN PLATELET VOLUME 8.2 fL (7.4-11.0); MONOCYTES # (AUTO) 0.5 x10^3/uL (0.3-0.8); MONOCYTES % (AUTO) 6.1 % (0.0-13.0); NEUTROPHILS # (AUTO) 7.9 x10^3/uL (2.2-4.8); NEUTROPHILS % (AUTO) 88.4 % (42.0-75.0); PLATELET COUNT 268 X10^3/uL (150.0-450.0); RED BLOOD COUNT 3.42 X10^6/uL (3.5-5.4); RED CELL DISTRIBUTION WIDTH 19.5 % (11.6-16.5); WHITE BLOOD COUNT 8.9 X10^3/uL (3.6-10.0)
[2019-04-04 06:03] LABS: ALANINE AMINOTRANSFERASE 56 Units/L (12-78); ALBUMIN 2.9 g/dL (3.4-5.0); ALKALINE PHOSPHATASE 84 Units/L (46-116); ASPARTATE AMINO TRANSFERASE 33 Units/L (15-37); BLOOD UREA NITROGEN 13 mg/dL (7-18); CALCIUM 8.2 mg/dL (8.5-10.1); CARBON DIOXIDE 22.5 mmol/L (21-32); CHLORIDE 104 mmol/L (98-107); COR CA(FOR HYPOALB) 9.1 mg/dL (8.5-10.1); COR NA(FOR HYPERGLY) 141 mmol/L (136-145); CREATININE 1.02 mg/dL (0.55-1.02); SODIUM 140 mmol/L (136-145); TOTAL PROTEIN 7.1 g/dL (6.4-8.2); eGFR NON BLACK RACES 60 (>60)
[2019-04-04] MEDS: LOVENOX INJ 40 MG SYR SC SCH (08:35)
[2019-04-04] MEDS ORDERED: ZOFRAN TAB 4 MG PO PRN (11:33)
[2019-04-04] MEDS ORDERED: IMODIUM CAP 2 MG PO PRN (11:33)
--- NOTE | 2019-04-04 11:40 | DR.PROGNOT ---
Hospital Progress Notes - Progress Note for Day of: Progress Note Date: 04/04/19 - Chief Complaint Chief Complaint: post operative lap appendectomy day 1. doing well with less abdominal pain , no nausea or vomiting . mild bloody drainage in JASEN. afebrile . - Past Medical Family Social History Past Med/Fam/Surg Hx: No changes since H&P Allergies: Allergies latex Adverse Reaction (Verified 04/03/19 11:08) - Review Of Systems ROS: No change since H&P - Vital Signs Vital Signs: Temperature 97.6 F Pulse Rate [Left Brachial] 76 Pulse Rate 77 Respiratory Rate 20 Blood Pressure [Right Arm] 135/79 Blood Pressure [Left Arm] 114/57 Blood Pressure 149/71 O2 Sat by Pulse Oximetry 98 - Physical Exam Oriented: Normal Eyes: Normal Ear: Normal Nose: Normal Throat: Normal Respiratory: Normal Cardiovascular: Normal : Normal GI:Auscultation: Decreased GI:Palpation: Normal GI: Tenderness: Diffuse (lower abdomen ) Skin: Normal Musculoskeletal: Normal Psychiatric: Normal Mood Description: Calm Speech Pattern: Clear, Appropriate - Laboratory and Diagnostics Result Diagrams: 04/04/19 05:11 04/04/19 05:11 Labs: Laboratory WBC 8.9 X10^3/uL (3.6-10.0) 04/04/19 05:11 RBC 3.42 X10^6/uL (3.5-5.4) L 04/04/19 05:11 Hgb 10.2 g/dL (12.0-16.0) L 04/04/19 05:11 Hct 29.3 % (36.0-47.0) L 04/04/19 05:11 MCV 85.6 fL (80.0-100.0) 04/04/19 05:11 MCH 29.9 pg (27.0-34.0) 04/04/19 05:11 MCHC 34.9 g/dL (33.0-35.0) 04/04/19 05:11 RDW 19.5 % (11.6-16.5) H 04/04/19 05:11 Plt Count 268 X10^3/uL (150.0-450.0) 04/04/19 05:11 Plt Count Comment Adequate (ADEQUATE) 04/03/19 11:46 MPV 8.2 fL (7.4-11.0) 04/04/19 05:11 Neut % (Auto) 88.4 % (42.0-75.0) H 04/04/19 05:11 Lymph % (Auto) 5.5 % (21.0-51.0) L 04/04/19 05:11 [place] % (Auto) 6.1 % (0.0-13.0) 04/04/19 05:11 Eos % (Auto) 0.0 % (0.9-2.9) L 04/04/19 05:11 Baso % (Auto) 0 % (0.2-1.0) L 04/04/19 05:11 Neut # (Auto) 7.9 x10^3/uL (2.2-4.8) H 04/04/19 05:11 Lymph # (Auto) 0.5 X10^3/uL (1.3-2.9) L 04/04/19 05:11 [place] # (Auto) 0.5 x10^3/uL (0.3-0.8) 04/04/19 05:11 Eos # (Auto) 0.0 x10^3/uL (0.0-0.2) 04/04/19 05:11 Baso # (Auto) 0.0 X10^3/uL (0.0-0.1) 04/04/19 05:11 Absolute Nucleated RBC 0.0 /100WBC 04/04/19 05:11 Plt Morphology Comment Normal (NORMAL) 04/03/19 11:46 RBC Morphology Abnormal (NORMAL) A 04/03/19 11:46 Anisocytosis 1+ A 04/03/19 11:46 INR Target Range - 04/03/19 11:46 INR 0.98 (0.8-1.3) 04/03/19 11:46 APTT 38.9 SECONDS (22.9-36.5) H 04/03/19 11:46 PTT Comment - 04/03/19 11:46 Sodium 140 mmol/L (136-145) 04/04/19 05:11 Corrected Sodium 141 mmol/L (136-145) 04/04/19 05:11 Potassium 4.1 mmol/L (3.5-5.1) 04/04/19 05:11 Chloride 104 mmol/L (98-107) 04/04/19 05:11 Carbon Dioxide 22.5 mmol/L (21-32) 04/04/19 05:11 BUN 13 mg/dL (7-18) 04/04/19 05:11 Creatinine 1.02 mg/dL (0.55-1.02) 04/04/19 05:11 Est GFR (MDRD) Af Amer > 60 (>60) 04/04/19 05:11 Est GFR (MDRD) Non-Af 60 (>60) 04/04/19 05:11 Glucose 147 mg/dL (65-99) H 04/04/19 05:11 Calcium 8.2 mg/dL (8.5-10.1) L 04/04/19 05:11 Corrected Calcium 9.1 mg/dL (8.5-10.1) 04/04/19 05:11 Total Bilirubin 0.40 mg/dL (0.2-1.0) 04/04/19 05:11 AST 33 Units/L (15-37) 04/04/19 05:11 ALT 56 Units/L (12-78) 04/04/19 05:11 Alkaline Phosphatase 84 Units/L (46-116) 04/04/19 05:11 C-Reactive Protein 11.40 mg/L (0-3.0) H 04/03/19 11:46 Total Protein 7.1 g/dL (6.4-8.2) 04/04/19 05:11 Albumin 2.9 g/dL (3.4-5.0) L 04/04/19 05:11 Globulin 4.2 g/dL (2.5-4.5) 04/04/19 05:11 Albumin/Globulin Ratio 0.7 Ratio (1.1-2.1) L 04/04/19 05:11 Amylase 125 Units/L (25-115) H 04/03/19 11:46 Lipase 274 Units/L (73-393) 04/03/19 11:46 Tissue Pathology To follow 04/03/19 16:32 - Assessment and Plan 1: PO lysis of abdominal and pelpic adhesion, lap appendectomy . to start on full liquid diet , same IV ATB . ambulate and same PO care . to keep JASEN for 24h . - Problem Patient Problems: Patient Problems Acute appendicitis (Acute) K35.80
[2019-04-04] MEDS ORDERED: [UNRECOGNIZED DRUG - OTHER] PO SCH (11:45)
--- NOTE | 2019-04-04 12:43 | DR.H&P ---
H&P - History & Physical for Day of: H&P Date: 04/03/19 - Chief Complaint Chief Complaint: ABDOMINAL PAIN - History of Present Illness History of Present Illness: IS A 53 YEAR OLD PATIENT OF OURS. SHE PRESENTED TO THE HOSPITAL WITH COMPLAINTS OF MID ABDOMINAL PAIN AND DIARRHEA. PAIN IS ASSOCIATED WITH NAUSEA. PAIN STARTED AT APPROXIMATELY 11:00PM THE PREVIOUS NIGHT. PAST MEDICAL HISTORY INCLUDES LUNG, BREAST, LIVER, BRAIN CANCER. SHE IS CURRENTLY RECEIVING ORAL CHEMOTHERAPY. ON ARRIVAL, VITALS WERE 97.8-88-20-98%-151/85. LABS WERE OBTAINED. ABNORMAL LAB VALUES INCLUDE THE FOLLOWING: HGB 11.9, HCT 35.3, CALCIUM 10.2, AST 39, ALK PHOS 121, CRP 11.40, TOTAL PROTEIN 8.6, GLOBULIN 4.7, AMYLASE 125. AN ABDOMEN/PELVIS WAS OBTAINED AND REVEALED: Non perforated appendicitis. Surgical consultation is needed. Diverticulosis without diverticulitis. No acute intra-abdominal or intrapelvic process otherwise. AN EKG WAS OBTAINED AND REVEALED: SINUS RHYTHM WITH HR 88. CHEST XRAY OBTAINED AND REVEALED: No acute cardiopulmonary abnormality is seen on this exam. WAS CONSULTED AND PLANS FOR A LAPROSCOPIC APPENDECTOMY THIS AFTERNOON. WE ARE IN AGREEMENT WITH PLAN. SHE WILL BE STARTED ON D51/2 NS AT 150ML/HR, ZOSYN 3.375g IV TID, AND MORPHINE 3MG IV Q4H PRN FOR PAIN. OTHERWISE, WE WILL FOLLOW UP WITH AM LABS AND CONTINUE TO MONITOR. - Past Medical History Past Medical History: Hypothyroidism, PUD, GERD Additional Medical History: LUNG CANCER WITH METS TO THE BREAST AND BRAIN - Past Surgical History Surgical History: Appendectomy, Ectopic , Thyroidectomy - Family History Family Medical History: [place], Coronary Artery Disease, Hypertension - Social History Does patient currently use any type of tobacco product: No Have you used tobacco products in the last 12 months: No Type of Tobacco Use: None Does any household member use tobacco: No Alcohol Use: None Drug Use: None Prescription drug monitoring program results: PDMP reviewed and no concerns identified - Medications Home Medications: latex Adverse Reaction (Verified 04/03/19 11:08) CONTINUE taking the following medications brigatinib [Alunbrig] 180 mg PO DAILY 04/03/19 [History] ferrous gluconate 324 mg PO BID 04/03/19 [History] folic acid 1 mg PO DAILY 04/03/19 [History] levothyroxine [Synthroid] 125 mcg PO DAILY 04/03/19 [History] loperamide 2 mg PO PRN PRN 04/03/19 [History] ondansetron 8 mg PO Q6H PRN 04/03/19 [History] - Review of Systems Constitutional: No Symptoms Reported Eyes: No Symptoms Reported ENT: No Symptoms Reported Respiratory: No Symptoms Reported Cardiovascular: No Symptoms Reported Gastrointestinal: Nausea, Abdominal Pain, Diarrhea Genitourinary: No Symptoms Reported Musculoskeletal: No Symptoms Reported Skin: No Symptoms Reported Neurological: No Symptoms Reported - Physical Exam Vital Signs: Temperature 97.6 F Pulse Rate [Left Brachial] 76 Pulse Rate 77 Respiratory Rate 20 Blood Pressure [Right Arm] 135/79 Blood Pressure [Left Arm] 114/57 Blood Pressure 149/71 O2 Sat by Pulse Oximetry 98 Oriented: Normal Eyes: Normal Ear: Normal Nose: Normal Throat: Normal Respiratory: Diminished Throughout Cardiovascular: Normal : Normal Auscultation: Bowel Sounds: Normal Palpation: Normal Tenderness: Diffuse, Moderate. negative: Rebound, Guarding, Rigidity Skin: Normal Musculoskeletal: Normal Psychiatric: Normal Mood Description: Calm Affect: Normal Speech Pattern: Clear - Assessment/Plan (1) Acute appendicitis Qualifiers: Acute appendicitis type: unspecified acute appendicitis type Qualified Code(s): K35.80 - Unspecified acute appendicitis Status: Acute Plan: ADMIT, APPENDECTOMY TODAY, IV ANTIBIOTICS, PAIN CONTROL, CONTINUE TO MONITOR - Allergies Allergies/Adverse Reactions: Allergies Allergy/AdvReac Type Severity Reaction Status Date / Time latex AdvReac Verified 04/03/19 11:08
[2019-04-04] MEDS: FOLIC ACID TAB 1 MG PO SCH (13:20)
[2019-04-04] MEDS: PriLOSEC PO SCH ×3 (13:20→20:40)
[2019-04-04] MEDS: FERROUS GLUCONATE PO SCH ×2 (13:20→20:35)
[2019-04-04] MEDS: PREDNISONE TAB 5 MG PO SCH (13:20)
[2019-04-04] MEDS: SYNTHROID 125 mcg TAB PO SCH (13:20)
[2019-04-04] MEDS: MAALOX or MYLANTA PO PRN ×2 (15:30→20:35)
[2019-04-04] MEDS ORDERED: COLACE CAP 100 MG PO PRN (17:15)
[2019-04-04] MEDS: MYLICON TAB 80 MG CHEW PO PRN (23:20)
[2019-04-05] MEDS: D5 1/2 NS 1000 ML 1,000 ML IV SCH ×4 (01:05→20:39)
[2019-04-05] MEDS: MORPHINE SULFATE INJ 4 MG IVP PRN ×3 (02:30→14:14)
[2019-04-05 05:43] LABS: BASOPHILS % (AUTO) 0.4 % (0.2-1.0); EOSINOPHILS % (AUTO) 0.1 % (0.9-2.9); HEMATOCRIT 30.9 % (36.0-47.0); HEMOGLOBIN 10.3 g/dL (12.0-16.0); LYMPHOCYTES % (AUTO) 15.7 % (21.0-51.0); MEAN CORPUSCULAR HEMOGLOBIN 29.3 pg (27.0-34.0); MEAN CORPUSCULAR HGB CONC 33.3 g/dL (33.0-35.0); MEAN CORPUSCULAR VOLUME 87.8 fL (80.0-100.0); MEAN PLATELET VOLUME 7.9 fL (7.4-11.0); MONOCYTES # (AUTO) 0.7 x10^3/uL (0.3-0.8); MONOCYTES % (AUTO) 10.4 % (0.0-13.0); NEUTROPHILS # (AUTO) 4.8 x10^3/uL (2.2-4.8); NEUTROPHILS % (AUTO) 73.4 % (42.0-75.0); PLATELET COUNT 327 X10^3/uL (150.0-450.0); RED BLOOD COUNT 3.52 X10^6/uL (3.5-5.4); RED CELL DISTRIBUTION WIDTH 20.4 % (11.6-16.5); WHITE BLOOD COUNT 6.5 X10^3/uL (3.6-10.0)
[2019-04-05 06:01] LABS: ALANINE AMINOTRANSFERASE 63 Units/L (12-78); ALBUMIN 3.1 g/dL (3.4-5.0); ALKALINE PHOSPHATASE 92 Units/L (46-116); ASPARTATE AMINO TRANSFERASE 45 Units/L (15-37); BLOOD UREA NITROGEN 7 mg/dL (7-18); CALCIUM 8.7 mg/dL (8.5-10.1); CARBON DIOXIDE 25.3 mmol/L (21-32); CHLORIDE 108 mmol/L (98-107); COR CA(FOR HYPOALB) 9.4 mg/dL (8.5-10.1); SODIUM 145 mmol/L (136-145); TOTAL PROTEIN 7.6 g/dL (6.4-8.2); eGFR NON BLACK RACES > 60 (>60)
[2019-04-05] MEDS: ZOSYN VIAL 3.375 GRAMS 3.375 G in NS 100 ML IV + SPIKE MINIBAG* 100 ML IV SCH ×3 (06:02→22:30)
[2019-04-05 06:17] LABS: PLATELET MORPHOLOGY COMMENT NORMAL (NORMAL)
[2019-04-05 06:18] LABS: ANISOCYTOSIS 1+
[2019-04-05] MEDS: MYLICON TAB 80 MG CHEW PO PRN ×2 (06:18→20:38)
--- NOTE | 2019-04-05 10:03 | DR.PROGNOT ---
Hospital Progress Notes - Progress Note for Day of: Progress Note Date: 04/05/19 - Chief Complaint Chief Complaint: post operative lap appendectomy day 2. doing well with moderate abdominal pain , no nausea or vomiting . moderate bloody drainage in JASEN. afebrile . - Past Medical Family Social History Past Med/Fam/Surg Hx: No changes since H&P Allergies: Allergies latex Adverse Reaction (Verified 04/03/19 11:08) - Review Of Systems ROS: No change since H&P - Vital Signs Vital Signs: Temperature 98.6 F Pulse Rate [Left Brachial] 84 Pulse Rate 77 Respiratory Rate 18 Blood Pressure [Right Arm] 135/79 Blood Pressure [Left Arm] 134/72 Blood Pressure 149/71 O2 Sat by Pulse Oximetry 98 - Physical Exam Oriented: Normal Eyes: Normal Ear: Normal Nose: Normal Throat: Normal Respiratory: Normal Cardiovascular: Normal : Normal GI:Auscultation: Normal GI:Palpation: Normal GI: Tenderness: Diffuse, Moderate. negative: Rebound, Guarding, Rigidity Skin: Normal Musculoskeletal: Normal Psychiatric: Normal Mood Description: Calm Affect: Normal Speech Pattern: Clear, Appropriate - Laboratory and Diagnostics Result Diagrams: 04/05/19 05:14 04/05/19 05:14 Labs: Laboratory WBC 6.5 X10^3/uL (3.6-10.0) 04/05/19 05:14 RBC 3.52 X10^6/uL (3.5-5.4) 04/05/19 05:14 Hgb 10.3 g/dL (12.0-16.0) L 04/05/19 05:14 Hct 30.9 % (36.0-47.0) L 04/05/19 05:14 MCV 87.8 fL (80.0-100.0) 04/05/19 05:14 MCH 29.3 pg (27.0-34.0) 04/05/19 05:14 MCHC 33.3 g/dL (33.0-35.0) 04/05/19 05:14 RDW 20.4 % (11.6-16.5) H 04/05/19 05:14 Plt Count 327 X10^3/uL (150.0-450.0) 04/05/19 05:14 Plt Count Comment Adequate (ADEQUATE) 04/05/19 05:14 MPV 7.9 fL (7.4-11.0) 04/05/19 05:14 Neut % (Auto) 73.4 % (42.0-75.0) 04/05/19 05:14 Lymph % (Auto) 15.7 % (21.0-51.0) L 04/05/19 05:14 [place] % (Auto) 10.4 % (0.0-13.0) 04/05/19 05:14 Eos % (Auto) 0.1 % (0.9-2.9) L 04/05/19 05:14 Baso % (Auto) 0.4 % (0.2-1.0) 04/05/19 05:14 Neut # (Auto) 4.8 x10^3/uL (2.2-4.8) 04/05/19 05:14 Lymph # (Auto) 1.0 X10^3/uL (1.3-2.9) L 04/05/19 05:14 [place] # (Auto) 0.7 x10^3/uL (0.3-0.8) 04/05/19 05:14 Eos # (Auto) 0.0 x10^3/uL (0.0-0.2) 04/05/19 05:14 Baso # (Auto) 0.0 X10^3/uL (0.0-0.1) 04/05/19 05:14 Absolute Nucleated RBC 0.0 /100WBC 04/05/19 05:14 Plt Morphology Comment Normal (NORMAL) 04/05/19 05:14 RBC Morphology Abnormal (NORMAL) A 04/05/19 05:14 Anisocytosis 1+ A 04/05/19 05:14 INR Target Range - 04/03/19 11:46 INR 0.98 (0.8-1.3) 04/03/19 11:46 APTT 38.9 SECONDS (22.9-36.5) H 04/03/19 11:46 PTT Comment - 04/03/19 11:46 Sodium 145 mmol/L (136-145) 04/05/19 05:14 Corrected Sodium TNP 04/05/19 05:14 Potassium 3.9 mmol/L (3.5-5.1) 04/05/19 05:14 Chloride 108 mmol/L (98-107) H 04/05/19 05:14 Carbon Dioxide 25.3 mmol/L (21-32) 04/05/19 05:14 BUN 7 mg/dL (7-18) 04/05/19 05:14 Creatinine 0.90 mg/dL (0.55-1.02) 04/05/19 05:14 Est GFR (MDRD) Af Amer > 60 (>60) 04/05/19 05:14 Est GFR (MDRD) Non-Af > 60 (>60) 04/05/19 05:14 Glucose 105 mg/dL (65-99) H 04/05/19 05:14 Calcium 8.7 mg/dL (8.5-10.1) 04/05/19 05:14 Corrected Calcium 9.4 mg/dL (8.5-10.1) 04/05/19 05:14 Total Bilirubin 0.30 mg/dL (0.2-1.0) 04/05/19 05:14 AST 45 Units/L (15-37) H 04/05/19 05:14 ALT 63 Units/L (12-78) 04/05/19 05:14 Alkaline Phosphatase 92 Units/L (46-116) 04/05/19 05:14 C-Reactive Protein 11.40 mg/L (0-3.0) H 04/03/19 11:46 Total Protein 7.6 g/dL (6.4-8.2) 04/05/19 05:14 Albumin 3.1 g/dL (3.4-5.0) L 04/05/19 05:14 Globulin 4.5 g/dL (2.5-4.5) 04/05/19 05:14 Albumin/Globulin Ratio 0.7 Ratio (1.1-2.1) L 04/05/19 05:14 Amylase 125 Units/L (25-115) H 04/03/19 11:46 Lipase 274 Units/L (73-393) 04/03/19 11:46 Tissue Pathology To follow 04/03/19 16:32 - Assessment and Plan 1: PO lysis of abdominal and pelpic adhesion, lap appendectomy . to start on full liquid diet , same IV ATB . ambulate and same PO care . to keep JASEN today . - Problem Patient Problems: Patient Problems Acute appendicitis (Acute) K35.80
[2019-04-05] MEDS: PREDNISONE TAB 5 MG PO SCH (10:33)
[2019-04-05] MEDS: FERROUS GLUCONATE PO SCH ×2 (10:33→20:38)
[2019-04-05] MEDS: SYNTHROID 125 mcg TAB PO SCH (10:33)
[2019-04-05] MEDS: FOLIC ACID TAB 1 MG PO SCH (10:33)
[2019-04-05] MEDS: PriLOSEC PO SCH ×2 (10:33→20:38)
[2019-04-05] MEDS: LOVENOX INJ 40 MG SYR SC SCH (10:35)
[2019-04-05] MEDS ORDERED: FLEET ENEMA ADULT PR NR (10:49)
[2019-04-05] MEDS ORDERED: PATIENT'S HOME MEDICATION PO SCH (21:00)
--- NOTE | 2019-04-05 22:04 | PCM.PROG ---
Progress Note - Progress Note for Day of Date of Exam: 04/04/19 - Subjective Subjective: WAS ADMITTED FOR ACUTE APPENDICITIS. SHE IS DAY 1 POST OP LAP APPENDECTOMY. TODAY, SHE IS ALERT AND ORIENTED, LYING IN BED ON MORNING ROUNDS. SHE REPORTS MILD ABDOMINAL PAIN THIS MORNING. ON EXAMINATION, HEART IS REGULAR IN RATE AND RHYTHM. BILATERAL LUNGS ARE NOTED TO BE CLEAR TO AUS CULTATION. ABDOMEN IS ROUND, SOFT, AND NOTED WITH DIFFUSE TENDERNESS. THERE ARE SURGICAL WOUNDS NOTED. DRESSINGS ARE DRY AND INTACT WITH NO S/SX INFECTION. JASEN DRAIN NOTED WITH BLOODY DRAINAGE. HER VITALS THIS MORNING ARE: 97.6-76-18-98%-114/57. LABS WERE OBTAINED. ABNORMAL LAB VALUES INCLUDE THE FOL LOWING: RBC 3.42, HGB 10.2, HCT 29.3, GLUCOSE 147, CALCIUM 8.2, ALBUMIN 2.9. SHE IS CURRENTLY RECEIVING IV FLUIDS, IV ZOSYN, PAIN CONTROL, DVT PROPHYLAXIS, AND HOME MEDICATIONS WERE RESUMED. WE WILL CONTINUE WITH CURRENT PLAN OF CARE TODAY. OTHERWISE, WE WILL FOLLOW UP WITH AM LABS AND CONTINUE TO MONITOR. - Past Medical Family Social History Past Med/Fam/Surg Hx: No changes since H&P Allergies: Allergies latex Adverse Reaction (Verified 04/03/19 11:08) - Review of Systems ROS: No change since H&P - Vital Signs and I&O's Vital Signs: Temperature 98.1 F Pulse Rate [Left Brachial] 86 Pulse Rate 77 Respiratory Rate 18 Blood Pressure [Right Arm] 143/67 Blood Pressure [Left Arm] 134/72 Blood Pressure 149/71 O2 Sat by Pulse Oximetry 96 Intake and Output: Intake & Output 04/03/19 04/04/19 04/05/19 04/06/19 11:59 11:59 11:59 11:59 Intake Total 1120 / 1120 4780 / 4780 480 / 480 Output Total 420 / 420 115 / 115 70 / 70 Balance 700 / 700 4665 / 4665 410 / 410 - Physical Exam Oriented: Normal Eyes: Normal Ear: Normal Nose: Normal Throat: Normal Respiratory: Normal Cardiovascular: Normal. negative: S3, S4, Murmur : Normal Auscultation: Bowel Sounds: Normal Palpation: Normal Tenderness: Diffuse, Mild. negative: Rebound, Guarding, Rigidity Skin: Wound (SURGICAL WOUNDS, JASEN DRAIN TO ABDOMEN ) Musculoskeletal: Normal Psychiatric: Normal Mood Description: Calm Affect: Normal Speech Pattern: Clear, Appropriate - Laboratory and Diagnostics Result Diagrams: 04/05/19 05:14 04/05/19 05:14 Labs: Laboratory WBC 6.5 X10^3/uL (3.6-10.0) 04/05/19 05:14 RBC 3.52 X10^6/uL (3.5-5.4) 04/05/19 05:14 Hgb 10.3 g/dL (12.0-16.0) L 04/05/19 05:14 Hct 30.9 % (36.0-47.0) L 04/05/19 05:14 MCV 87.8 fL (80.0-100.0) 04/05/19 05:14 MCH 29.3 pg (27.0-34.0) 04/05/19 05:14 MCHC 33.3 g/dL (33.0-35.0) 04/05/19 05:14 RDW 20.4 % (11.6-16.5) H 04/05/19 05:14 Plt Count 327 X10^3/uL (150.0-450.0) 04/05/19 05:14 Plt Count Comment Adequate (ADEQUATE) 04/05/19 05:14 MPV 7.9 fL (7.4-11.0) 04/05/19 05:14 Neut % (Auto) 73.4 % (42.0-75.0) 04/05/19 05:14 Lymph % (Auto) 15.7 % (21.0-51.0) L 04/05/19 05:14 [place] % (Auto) 10.4 % (0.0-13.0) 04/05/19 05:14 Eos % (Auto) 0.1 % (0.9-2.9) L 04/05/19 05:14 Baso % (Auto) 0.4 % (0.2-1.0) 04/05/19 05:14 Neut # (Auto) 4.8 x10^3/uL (2.2-4.8) 04/05/19 05:14 Lymph # (Auto) 1.0 X10^3/uL (1.3-2.9) L 04/05/19 05:14 [place] # (Auto) 0.7 x10^3/uL (0.3-0.8) 04/05/19 05:14 Eos # (Auto) 0.0 x10^3/uL (0.0-0.2) 04/05/19 05:14 Baso # (Auto) 0.0 X10^3/uL (0.0-0.1) 04/05/19 05:14 Absolute Nucleated RBC 0.0 /100WBC 04/05/19 05:14 Plt Morphology Comment Normal (NORMAL) 04/05/19 05:14 RBC Morphology Abnormal (NORMAL) A 04/05/19 05:14 Anisocytosis 1+ A 04/05/19 05:14 INR Target Range - 04/03/19 11:46 INR 0.98 (0.8-1.3) 04/03/19 11:46 APTT 38.9 SECONDS (22.9-36.5) H 04/03/19 11:46 PTT Comment - 04/03/19 11:46 Sodium 145 mmol/L (136-145) 04/05/19 05:14 Corrected Sodium TNP 04/05/19 05:14 Potassium 3.9 mmol/L (3.5-5.1) 04/05/19 05:14 Chloride 108 mmol/L (98-107) H 04/05/19 05:14 Carbon Dioxide 25.3 mmol/L (21-32) 04/05/19 05:14 BUN 7 mg/dL (7-18) 04/05/19 05:14 Creatinine 0.90 mg/dL (0.55-1.02) 04/05/19 05:14 Est GFR (MDRD) Af Amer > 60 (>60) 04/05/19 05:14 Est GFR (MDRD) Non-Af > 60 (>60) 04/05/19 05:14 Glucose 105 mg/dL (65-99) H 04/05/19 05:14 Calcium 8.7 mg/dL (8.5-10.1) 04/05/19 05:14 Corrected Calcium 9.4 mg/dL (8.5-10.1) 04/05/19 05:14 Total Bilirubin 0.30 mg/dL (0.2-1.0) 04/05/19 05:14 AST 45 Units/L (15-37) H 04/05/19 05:14 ALT 63 Units/L (12-78) 04/05/19 05:14 Alkaline Phosphatase 92 Units/L (46-116) 04/05/19 05:14 C-Reactive Protein 11.40 mg/L (0-3.0) H 04/03/19 11:46 Total Protein 7.6 g/dL (6.4-8.2) 04/05/19 05:14 Albumin 3.1 g/dL (3.4-5.0) L 04/05/19 05:14 Globulin 4.5 g/dL (2.5-4.5) 04/05/19 05:14 Albumin/Globulin Ratio 0.7 Ratio (1.1-2.1) L 04/05/19 05:14 Amylase 125 Units/L (25-115) H 04/03/19 11:46 Lipase 274 Units/L (73-393) 04/03/19 11:46 Tissue Pathology To follow 04/03/19 16:32 - Plan (1) Acute appendicitis Status: Acute Qualifiers: Acute appendicitis type: unspecified acute appendicitis type Qualified Code(s): K35.80 - Unspecified acute appendicitis Plan: STATUS POST APPENDECTOMY, IV ANTIBIOTICS, PAIN CONTROL, CONTINUE TO MONITOR
[2019-04-06 05:43] LABS: BASOPHILS % (AUTO) 0.3 % (0.2-1.0); EOSINOPHILS % (AUTO) 0.6 % (0.9-2.9); HEMATOCRIT 28.8 % (36.0-47.0); HEMOGLOBIN 9.9 g/dL (12.0-16.0); LYMPHOCYTES # (AUTO) 0.9 X10^3/uL (1.3-2.9); LYMPHOCYTES % (AUTO) 19.4 % (21.0-51.0); MEAN CORPUSCULAR HEMOGLOBIN 29.7 pg (27.0-34.0); MEAN CORPUSCULAR HGB CONC 34.5 g/dL (33.0-35.0); MEAN PLATELET VOLUME 8.1 fL (7.4-11.0); MONOCYTES # (AUTO) 0.7 x10^3/uL (0.3-0.8); MONOCYTES % (AUTO) 15.9 % (0.0-13.0); NEUTROPHILS % (AUTO) 63.8 % (42.0-75.0); PLATELET COUNT 348 X10^3/uL (150.0-450.0); RED BLOOD COUNT 3.34 X10^6/uL (3.5-5.4); WHITE BLOOD COUNT 4.7 X10^3/uL (3.6-10.0)
[2019-04-06] MEDS: ZOSYN VIAL 3.375 GRAMS 3.375 G in NS 100 ML IV + SPIKE MINIBAG* 100 ML IV SCH (05:52)
[2019-04-06] MEDS: D5 1/2 NS 1000 ML 1,000 ML IV SCH ×2 (05:53→10:42)
[2019-04-06 05:57] LABS: ALANINE AMINOTRANSFERASE 79 Units/L (12-78); ALBUMIN 2.9 g/dL (3.4-5.0); ALKALINE PHOSPHATASE 107 Units/L (46-116); ASPARTATE AMINO TRANSFERASE 63 Units/L (15-37); BLOOD UREA NITROGEN 5 mg/dL (7-18); CALCIUM 8.2 mg/dL (8.5-10.1); CARBON DIOXIDE 24.2 mmol/L (21-32); CHLORIDE 106 mmol/L (98-107); COR CA(FOR HYPOALB) 9.1 mg/dL (8.5-10.1); CREATININE 0.88 mg/dL (0.55-1.02); SODIUM 142 mmol/L (136-145); TOTAL PROTEIN 7.1 g/dL (6.4-8.2); eGFR NON BLACK RACES > 60 (>60)
[2019-04-06] MEDS: MORPHINE SULFATE INJ 4 MG IVP PRN (06:02)
[2019-04-06] MEDS ORDERED: K-RIDER 10 MEQ/NS 100 ML 10 MEQ/100 ML BAG IV PRN (06:33)
[2019-04-06] MEDS ORDERED: POTASSIUM CHLORIDE LIQ 20 MEQ UDC PO PRN (06:33)
[2019-04-06] MEDS ORDERED: MAGNESIUM SULFATE 1 GRAM/100 mL PREMIX 1 GM/100 ML BAG IV PRN (06:33)
[2019-04-06] MEDS ORDERED: K-DUR TAB 20 MEQ PO PRN (06:33)
[2019-04-06] MEDS ORDERED: POTASSIUM CHL 60 MEQ/NS 0.45% 500 ML IV PRN (06:33)
[2019-04-06] MEDS ORDERED: POTASSIUM CHL 40 MEQ/NS 0.45% 500 ML IV PRN (06:33)
[2019-04-06] MEDS ORDERED: MICRO K EXTEN CAP 10 MEQ PO PRN (06:33)
[2019-04-06] MEDS ORDERED: KLOR-CON PO PRN (06:33)
[2019-04-06] MEDS: FERROUS GLUCONATE PO SCH (08:55)
[2019-04-06] MEDS: PriLOSEC PO SCH (08:55)
[2019-04-06] MEDS: FOLIC ACID TAB 1 MG PO SCH (08:55)
[2019-04-06] MEDS: SYNTHROID 125 mcg TAB PO SCH (08:58)
[2019-04-06] MEDS: PREDNISONE TAB 5 MG PO SCH (08:58)
[2019-04-06] MEDS: LOVENOX INJ 40 MG SYR SC SCH (08:58)
[2019-04-06] MEDS ORDERED: BACITRACIN ZINC ONE (12:20)
[2019-04-06 12:51] VITALS: BP 124/59
== END 2019-04-06 13:45 | disposition home or self-care (01) ==
LOC: MED/SURG 10:49 → ER 10:49 → MED/SURG 15:37
PROVIDERS: ADMIT Internal Medicine; ATTEND Internal Medicine
PROC: APPYLAP (ICD-10-PCS; 2019-04-03 15:45)
DX: C34.90 Malignant neoplasm of unspecified part of unspecified bronchus or lung; K35.890 Other acute appendicitis without perforation or gangrene; N73.6 Female pelvic peritoneal adhesions (postinfective); C79.81 Secondary malignant neoplasm of breast; Z92.21 Personal history of antineoplastic chemotherapy; C79.31 Secondary malignant neoplasm of brain; K52.89 Other specified noninfective gastroenteritis and colitis
CPT/HCPCS: 36415; 71010; 71045; 74176; 80053; 82150; 83690; 83735; 85025; 85610; 85730; 86140; 93005; 94760; 96365; 96367; 96372; 96374; 99282; 99283; A4216; A4222; G0378; J0330; J1100; J1642; J1650; J1885; J2250; J2270; J2405; J2543; J2704; J2710; J3010; J3490; J7030; J7050; J7512; S5010

== ENCOUNTER 2019-04-07 11:52 | Inpatient (IN) ==
[2019-04-07 12:04] VITALS: BMI 32.1
[2019-04-07] MEDS ORDERED: PROTONIX INJ 40 MG VIAL IVP ONE (12:39)
--- NOTE | 2019-04-07 12:44 | ED.ABDFE ---
HPI - PCP Primary Care Physician: fabi - Complaint Chief Complaint Doctors Comments: Patient states she has been having abdominal pain and bloody stools since leaving the hospital yesterday she had a blood stool last night and several today. States she has a history of Gastric ulcer and had a GI bleed Feb 2018. States she has an oncologist that she is seeing at [place] for Lung cancer four years and breast cancer 1 1/2 years. States the pain is 8 of 10. She is taking Prilosec 40mg po qam. She denies cold, cough, fever, chills or dysuria. States she had an appendectomy Tuesday last week and was discharged from the hospital yesterday. Chief Complaint:: pt stated she has been having abd pain real bad and bloody stool since she was discharged yesterday from the hospital. dr voss removed her appiendix 5 days ago. - Nurses notes reviewed Nurses Notes Review: Yes - Source History Provided: Patient - Mode of arrival Mode of Arrival: Wheelchair - Timing Onset of Chief Complaint: 04/03/19 Came on: Gradually - Duration Duration: Intermittent Duration: Days - Location Location: Diffuse, Epigastric - Severity Severity: Moderate - Quality Quality: Sharp - Context Onset: Gradually History of: Abdominal surgery, Similar pain (dx) - Modifying Worsening Factors: Nothing Improving Factors: Nothing - Associated signs and symptoms Associated Signs and Symptoms: Melena - Time seen Time Seen by Provider: 04/07/19 12:28 PMH - PMH Past Medical History: Yes Past Medical History: Hypothyroidism, PUD, GERD Past Surgical History: Yes Surgical History: Appendectomy, Ectopic , Thyroidectomy - Family History History of Family Medical Conditions: Yes Family Medical History: [place], Coronary Artery Disease, Hypertension - Social History Does patient currently use any type of tobacco product: No Have you used tobacco products in the last 12 months: No Type of Tobacco Use: None Does any household member use tobacco: No Alcohol Use: None Do you use any recreational Drugs:: No Lives With: Family Lives Where: Home - infectious screening In the last 2 months have you had wt loss of >10#?: NO Have you had fever, night sweats or hemotysis?: No Have you traveled outside the country in the last 6 months?: No Isolation: Standard ROS - Review of Systems Constitutional: No Symptoms Reported Eyes: No Symptoms Reported ENTM: No Symptoms Reported Respiratoy: No Symptoms Reported Cardiovascular: No Symptoms Reported. negative: See HPI, Chest Pain, Edema, Palpitations, Syncope, Cyanosis, Skin Mottling, Other Gastrointestinal/Abdominal: Abdominal Pain Genitourinary: No Symptoms Reported. negative: See HPI, Discharge, Dysuria, Kristopher quency, Hematuria, Pain, Bleeding, Other Neurological: No Symptoms Reported Musculoskeletal: No Symptoms Reported Integumentary: No Symptoms Reported. negative: See HPI, Change in Color, Change in Hair/Nails, Dryness, Lesions, Lumps, Rash, Itching, Wound, Bruises, Juandice, Other Hematologic/Lymphatic: No Symptoms Reported, Anemia, Easy Bruising Endocrine: No Symptoms Reported Psychiatric: No Symptoms Reported. negative: See HPI, Anxiety, Depression, Hallucinations, Excessive crying, Suicidal, Other PE - General Limitations: No Limitations General Appearance: Alert, In Distress (moderate) - Head Head Exam: Normal Inspection, Atraumatic, Normocephalic - Eyes Eye exam: Normal Appearance, PERRL, EOMI. negative: Scleral Icterus, Conjunctival Injection, Nystagmus, Miosis, Mydrasis, Periorbital Swelling, Periorbital Tenderness, Other - ENT ENT Exam: Normal Exam, Normal Oropharynx, Normal External Ear Exam, Mucous Membranes Moist, TM's Normal Bilaterally - Neck Neck Exam: Normal Inspection, Full ROM, Trachea Midline - Chest Chest Inspection: Normal Inspection, Symmetric Chest Wall Rise - Respiratory Respiratory Exam: Normal Lung Sounds Bilat Respiratory Exam: Bilateral Clear to Auscultation - Cardiovascular Cardiovascular Exam: Regular Rate, Normal Rhythm, Normal Heart Sounds - Abdominal Exam Abdominal Exam: Normal Inspection, Normal Bowel Sounds, Soft, Distention, Tenderness, Guarding, Dimnished Bowel Sounds Abdominal Tenderness: RUQ, Epigastrium, Moderate - Rectal Rectal Exam: Deferred - Back Back Exam: Normal Inspection, Full ROM. negative: Tenderness, (R) CVA Tenderness, (L) CVA Tenderness, Muscle Spasm, Paraspinal Tenderness, Vertebral Tenderness, Rashes, (R) Sciatic Notch Tenderness, (L) Sciatic Notch Tendern, (R) Straight Leg Raise, (L) Straight Leg Raise, Other - Extremeties Extremities Exam: Normal Inspection, Full ROM, Normal Capillary Refill. negative: Tenderness, Edema, Joint Swelling, Calf Tenderness, Other - External Exam: Female: Deferred : Speculum Exam (Female): Deferred : Bimanual Exam (female): Deferred - Neurologic Neurological Exam: Alert, Oriented X3, CN II-XII Intact, Reflexes Normal. negative: Normal Gait (gait not tested) - Psychiatric Psychiatric Exam: Normal Affect, Normal Mood. negative: Depressed, Agitated, Anxious, Flat Affect, Manic, Homicidal Ideation, Suicidal Ideation, Other - Skin Skin Exam: Warm, Dry, Intact, Normal Color, Pallor - Vital Signs Vitals: Temperature 97.1 F Pulse Rate 89 Respiratory Rate 16 Blood Pressure [Right Arm] 124/59 Blood Pressure [Left Arm] 134/72 Blood Pressure 160/81 O2 Sat by Pulse Oximetry 99 Course - Reevaluation 1st: Improved - Consultation Called: 15:32 Call Returned: 15:32 (Dr. Mandujano to admit) - Education/Counseling Education/Counseling: Patient, Family Educated On: Treatment, Diagnosis, Needs for Follow Up ROR - Labs Reviewed Laboratory Results Reviewed?: Yes (All labs and x-ray results reviewed and discussed with patient and spouse) Result Diagrams: 04/07/19 12:53 04/07/19 12:53 - XRAY XRAY Interpreted by: Radiologist (CT abdomen and pelvis: Abnormal right lower quadrant mesenteric swirling and edema with dilation of the cecum, position superiorly and medially concerning for volvulus. Cholelithiasis.) - EKG Rate: 82 [place]: Normal Rhythm: NSR Block: None Hypertrophy: None ST: Nonsp - Labs Reviewed Laboratory: WBC 5.1 X10^3/uL (3.6-10.0) 04/07/19 12:53 RBC 3.55 X10^6/uL (3.5-5.4) 04/07/19 12:53 Hgb 10.5 g/dL (12.0-16.0) L 04/07/19 12:53 Hct 30.4 % (36.0-47.0) L 04/07/19 12:53 MCV 85.6 fL (80.0-100.0) 04/07/19 12:53 MCH 29.5 pg (27.0-34.0) 04/07/19 12:53 MCHC 34.4 g/dL (33.0-35.0) 04/07/19 12:53 RDW 20.2 % (11.6-16.5) H 04/07/19 12:53 Plt Count 436 X10^3/uL (150.0-450.0) 04/07/19 12:53 Plt Count Comment Adequate (ADEQUATE) 04/07/19 12:53 MPV 6.9 fL (7.4-11.0) L 04/07/19 12:53 Neut % (Auto) 80.6 % (42.0-75.0) H 04/07/19 12:53 Lymph % (Auto) 8.9 % (21.0-51.0) L 04/07/19 12:53 [place] % (Auto) 9.7 % (0.0-13.0) 04/07/19 12:53 Eos % (Auto) 0.4 % (0.9-2.9) L 04/07/19 12:53 Baso % (Auto) 0.4 % (0.2-1.0) 04/07/19 12:53 Neut # (Auto) 4.1 x10^3/uL (2.2-4.8) 04/07/19 12:53 Lymph # (Auto) 0.5 X10^3/uL (1.3-2.9) L 04/07/19 12:53 [place] # (Auto) 0.5 x10^3/uL (0.3-0.8) 04/07/19 12:53 Eos # (Auto) 0.0 x10^3/uL (0.0-0.2) 04/07/19 12:53 Baso # (Auto) 0.0 X10^3/uL (0.0-0.1) 04/07/19 12:53 Absolute Nucleated RBC 0.0 /100WBC 04/07/19 12:53 Plt Morphology Comment Normal (NORMAL) 04/07/19 12:53 RBC Morphology Normal (NORMAL) 04/07/19 12:53 Anisocytosis 1+ A 04/07/19 12:53 INR Target Range - 04/07/19 12:53 INR 0.98 (0.8-1.3) 04/07/19 12:53 APTT 36.3 SECONDS (22.9-36.5) 04/07/19 12:53 PTT Comment - 04/07/19 12:53 Sodium 142 mmol/L (136-145) 04/07/19 12:53 Corrected Sodium TNP 04/07/19 12:53 Potassium 3.7 mmol/L (3.5-5.1) 04/07/19 12:53 Chloride 105 mmol/L (98-107) 04/07/19 12:53 Carbon Dioxide 27.7 mmol/L (21-32) 04/07/19 12:53 BUN 5 mg/dL (7-18) L 04/07/19 12:53 Creatinine 0.80 mg/dL (0.55-1.02) 04/07/19 12:53 Est GFR (MDRD) Af Amer > 60 (>60) 04/07/19 12:53 Est GFR (MDRD) Non-Af > 60 (>60) 04/07/19 12:53 Glucose 95 mg/dL (65-99) 04/07/19 12:53 Calcium 9.1 mg/dL (8.5-10.1) 04/07/19 12:53 Corrected Calcium 9.7 mg/dL (8.5-10.1) 04/07/19 12:53 Total Bilirubin 0.20 mg/dL (0.2-1.0) 04/07/19 12:53 AST 62 Units/L (15-37) H 04/07/19 12:53 ALT 95 Units/L (12-78) H 04/07/19 12:53 Alkaline Phosphatase 118 Units/L (46-116) H 04/07/19 12:53 Total Protein 7.7 g/dL (6.4-8.2) 04/07/19 12:53 Albumin 3.2 g/dL (3.4-5.0) L 04/07/19 12:53 Globulin 4.5 g/dL (2.5-4.5) 04/07/19 12:53 Albumin/Globulin Ratio 0.7 Ratio (1.1-2.1) L 04/07/19 12:53 Amylase 88 Units/L (25-115) 04/07/19 12:53 Lipase 181 Units/L (73-393) 04/07/19 12:53 Specimen Type Clean catch urine 04/07/19 14:56 Urine Color Yellow (YELLOW) 04/07/19 14:56 Urine Appearance Clear (CLEAR) 04/07/19 14:56 Urine pH 6.5 (5.0 - 8.0) 04/07/19 14:56 Ur Specific [place] 1.015 (1.000-1.030) 04/07/19 14:56 Urine Protein Negative (NEGATIVE) 04/07/19 14:56 Urine Glucose (UA) Negative (NEGATIVE) 04/07/19 14:56 Urine Ketones Negative (NEGATIVE) 04/07/19 14:56 Urine Occult Blood Negative (NEGATIVE) 04/07/19 14:56 Urine Nitrite Negative (NEGATIVE) 04/07/19 14:56 Urine Bilirubin Negative (NEGATIVE) 04/07/19 14:56 Urine Urobilinogen Normal (NORMAL) 04/07/19 14:56 Ur Leukocyte Esterase Negative (NEGATIVE) 04/07/19 14:56 Blood Type A POSITIVE 04/07/19 12:53 Antibody Screen Negative 04/07/19 12:53 Opioid - Opioid Risk Tool Total: 0 Total Score Risk Category: Low Risk - Diagnosis Discharge Problem: Volvulus of intestine, Essential hypertension, Cholelithiasis Abdominal pain Qualifiers: Abdominal location: generalized Qualified Code(s): R10.84 - Generalized abdominal pain GI bleed Qualifiers: GI bleed type/associated pathology: gastritis - Discharge Plan Disposition: ADMITTED INPATIENT Condition: Stable
[2019-04-07] MEDS ORDERED: NS 1000 ML 1,000 ML IV SCH (13:00)
[2019-04-07 13:03] LABS: BASOPHILS % (AUTO) 0.4 % (0.2-1.0); EOSINOPHILS % (AUTO) 0.4 % (0.9-2.9); HEMATOCRIT 30.4 % (36.0-47.0); HEMOGLOBIN 10.5 g/dL (12.0-16.0); LYMPHOCYTES # (AUTO) 0.5 X10^3/uL (1.3-2.9); LYMPHOCYTES % (AUTO) 8.9 % (21.0-51.0); MEAN CORPUSCULAR HEMOGLOBIN 29.5 pg (27.0-34.0); MEAN CORPUSCULAR HGB CONC 34.4 g/dL (33.0-35.0); MEAN CORPUSCULAR VOLUME 85.6 fL (80.0-100.0); MEAN PLATELET VOLUME 6.9 fL (7.4-11.0); MONOCYTES # (AUTO) 0.5 x10^3/uL (0.3-0.8); MONOCYTES % (AUTO) 9.7 % (0.0-13.0); NEUTROPHILS # (AUTO) 4.1 x10^3/uL (2.2-4.8); NEUTROPHILS % (AUTO) 80.6 % (42.0-75.0); PLATELET COUNT 436 X10^3/uL (150.0-450.0); RED BLOOD COUNT 3.55 X10^6/uL (3.5-5.4); RED CELL DISTRIBUTION WIDTH 20.2 % (11.6-16.5); WHITE BLOOD COUNT 5.1 X10^3/uL (3.6-10.0)
[2019-04-07 13:14] LABS: ALANINE AMINOTRANSFERASE 95 Units/L (12-78); ALBUMIN 3.2 g/dL (3.4-5.0); ALKALINE PHOSPHATASE 118 Units/L (46-116); AMYLASE 88 Units/L (25-115); ASPARTATE AMINO TRANSFERASE 62 Units/L (15-37); BLOOD UREA NITROGEN 5 mg/dL (7-18); CALCIUM 9.1 mg/dL (8.5-10.1); CARBON DIOXIDE 27.7 mmol/L (21-32); CHLORIDE 105 mmol/L (98-107); COR CA(FOR HYPOALB) 9.7 mg/dL (8.5-10.1); LIPASE 181 Units/L (73-393); SODIUM 142 mmol/L (136-145); TOTAL PROTEIN 7.7 g/dL (6.4-8.2); eGFR NON BLACK RACES > 60 (>60)
[2019-04-07] MEDS ORDERED: PROTONIX INJ 40 MG VIAL ONE (13:27)
[2019-04-07 13:38] LABS: ANISOCYTOSIS 1+; PLATELET MORPHOLOGY COMMENT NORMAL (NORMAL)
[2019-04-07 14:59] LABS: BILIRUBIN,URINE NEGATIVE (NEGATIVE); BLOOD/HEMOGLOBIN,URINE NEGATIVE (NEGATIVE); GLUCOSE, URINE NEGATIVE (NEGATIVE); KETONES,URINE NEGATIVE (NEGATIVE); LEUKOCYTE ESTERASE ,URINE NEGATIVE (NEGATIVE); NITRITES,URINE NEGATIVE (NEGATIVE); PH,URINE 6.5 (5.0 - 8.0); PROTEIN,URINE NEGATIVE (NEGATIVE); UROBILINOGEN,URINE NORMAL (NORMAL)
[2019-04-07 15:03] LABS: APPEARANCE,URINE CLEAR (CLEAR); COLOR,URINE YELLOW (YELLOW)
[2019-04-07] MEDS ORDERED: MORPHINE SULFATE INJ 2 MG INJ IVP ONE ×2 (15:03→15:45)
[2019-04-07] MEDS ORDERED: ZOFRAN INJ 4 MG VIAL IVP ONE (15:05)
[2019-04-07] MEDS ORDERED: MORPHINE SULFATE INJ 2 MG INJ ONE (15:07)
[2019-04-07] MEDS ORDERED: ZOFRAN INJ 4 MG VIAL ONE (15:07)
[2019-04-07] MEDS: MORPHINE SULFATE INJ 2 MG INJ IVP PRN ×2 (15:50→20:54)
[2019-04-07] MEDS: PROTONIX INJ 40 MG VIAL 80 MG in NS 100 ML IV 80 ML IV SCH (16:25)
[2019-04-07] MEDS: D5 1/2 NS + KCL 20 MEQ/L 1,000 ML IV SCH (16:32)
[2019-04-07] MEDS ORDERED: POTASSIUM CHL 60 MEQ/NS 0.45% 500 ML IV PRN (19:20)
[2019-04-07] MEDS ORDERED: POTASSIUM CHL 40 MEQ/NS 0.45% 500 ML IV PRN (19:20)
[2019-04-07] MEDS ORDERED: MICRO K EXTEN CAP 10 MEQ PO PRN (19:20)
[2019-04-07] MEDS ORDERED: POTASSIUM CHLORIDE LIQ 20 MEQ UDC PO PRN (19:20)
[2019-04-07] MEDS ORDERED: K-DUR TAB 20 MEQ PO PRN (19:20)
[2019-04-07] MEDS ORDERED: K-RIDER 10 MEQ/NS 100 ML 10 MEQ/100 ML BAG IV PRN (19:20)
[2019-04-07] MEDS ORDERED: KLOR-CON PO PRN (19:20)
[2019-04-07] MEDS: MAGNESIUM SULFATE 1 GRAM/100 mL PREMIX 1 GM/100 ML BAG IV PRN ×2 (20:48→22:43)
[2019-04-07] MEDS: FOLIC ACID TAB 1 MG PO SCH (20:48)
[2019-04-07] MEDS: SYNTHROID 125 mcg TAB PO SCH (20:48)
--- NOTE | 2019-04-07 21:38 | RAD ---
Abdomen radiograph-3 images Indication: Abdominal pain and bleeding. Comparison: CT from earlier the same day Findings: Clips project over the abdomen. Dilated loop of colon, compatible with cecal volvulus is essentially unchanged from the prior. Surgical consultation recommended. No convincing free air or pneumatosis identified. Impression: Cecal volvulus again noted. Surgical follow-up recommended. Bowel wall breakdown may occur. Reported By:
[2019-04-07] MEDS: FLAGYL IV PREMIX 500 MG BAG 500 MG/100 ML BAG IV SCH (21:46)
--- NOTE | 2019-04-07 23:26 | DR.PROGNOT ---
Hospital Progress Notes - Progress Note for Day of: Progress Note Date: 04/07/19 - Chief Complaint Chief Complaint: S/P recent lap appendectomy . started to have acute abdominal pain with mild nausea , no vomiting . started 24h ago , no chills or fever . had two dark BM ( Pt was taking Iron ) . CT showed dilated cecum with possible volvulus . stable VS and normal lab work . - Past Medical Family Social History Past Med/Fam/Surg Hx: No changes since H&P (lung ca with mets , on chemo Tx ) Allergies: Allergies latex Adverse Reaction (Verified 04/07/19 12:00) - Review Of Systems ROS: No change since H&P - Vital Signs Vital Signs: Temperature 98.5 F Pulse Rate [Right Radial] 81 Pulse Rate 84 Respiratory Rate 20 Blood Pressure [Right Arm] 153/81 Blood Pressure [Left Arm] 134/72 Blood Pressure 143/73 O2 Sat by Pulse Oximetry 99 - Physical Exam Oriented: Normal Eyes: Normal Ear: Normal Nose: Normal Respiratory: Normal Cardiovascular: Normal, Murmur GI:Auscultation: Normal GI:Palpation: Normal, Other GI: Tenderness: RLQ (moderate abdominal distention , with tenderness , no rebound ,BS+) Skin: Normal, Decreased Turgur Musculoskeletal: Swelling Speech Pattern: Clear, Appropriate - Laboratory and Diagnostics Result Diagrams: 04/07/19 12:53 04/07/19 12:53 Labs: Laboratory WBC 5.1 X10^3/uL (3.6-10.0) 04/07/19 12:53 RBC 3.55 X10^6/uL (3.5-5.4) 04/07/19 12:53 Hgb 10.5 g/dL (12.0-16.0) L 04/07/19 12:53 Hct 30.4 % (36.0-47.0) L 04/07/19 12:53 MCV 85.6 fL (80.0-100.0) 04/07/19 12:53 MCH 29.5 pg (27.0-34.0) 04/07/19 12:53 MCHC 34.4 g/dL (33.0-35.0) 04/07/19 12:53 RDW 20.2 % (11.6-16.5) H 04/07/19 12:53 Plt Count 436 X10^3/uL (150.0-450.0) 04/07/19 12:53 Plt Count Comment Adequate (ADEQUATE) 04/07/19 12:53 MPV 6.9 fL (7.4-11.0) L 04/07/19 12:53 Neut % (Auto) 80.6 % (42.0-75.0) H 04/07/19 12:53 Lymph % (Auto) 8.9 % (21.0-51.0) L 04/07/19 12:53 [place] % (Auto) 9.7 % (0.0-13.0) 04/07/19 12:53 Eos % (Auto) 0.4 % (0.9-2.9) L 04/07/19 12:53 Baso % (Auto) 0.4 % (0.2-1.0) 04/07/19 12:53 Neut # (Auto) 4.1 x10^3/uL (2.2-4.8) 04/07/19 12:53 Lymph # (Auto) 0.5 X10^3/uL (1.3-2.9) L 04/07/19 12:53 [place] # (Auto) 0.5 x10^3/uL (0.3-0.8) 04/07/19 12:53 Eos # (Auto) 0.0 x10^3/uL (0.0-0.2) 04/07/19 12:53 Baso # (Auto) 0.0 X10^3/uL (0.0-0.1) 04/07/19 12:53 Absolute Nucleated RBC 0.0 /100WBC 04/07/19 12:53 Plt Morphology Comment Normal (NORMAL) 04/07/19 12:53 RBC Morphology Normal (NORMAL) 04/07/19 12:53 Anisocytosis 1+ A 04/07/19 12:53 INR Target Range - 04/07/19 12:53 INR 0.98 (0.8-1.3) 04/07/19 12:53 APTT 36.3 SECONDS (22.9-36.5) 04/07/19 12:53 PTT Comment - 04/07/19 12:53 Sodium 142 mmol/L (136-145) 04/07/19 12:53 Corrected Sodium TNP 04/07/19 12:53 Potassium 3.7 mmol/L (3.5-5.1) 04/07/19 12:53 Chloride 105 mmol/L (98-107) 04/07/19 12:53 Carbon Dioxide 27.7 mmol/L (21-32) 04/07/19 12:53 BUN 5 mg/dL (7-18) L 04/07/19 12:53 Creatinine 0.80 mg/dL (0.55-1.02) 04/07/19 12:53 Est GFR (MDRD) Af Amer > 60 (>60) 04/07/19 12:53 Est GFR (MDRD) Non-Af > 60 (>60) 04/07/19 12:53 Glucose 95 mg/dL (65-99) 04/07/19 12:53 Lactic Acid 1.0 mmol/L (0.4-2.0) 04/07/19 21:38 Calcium 9.1 mg/dL (8.5-10.1) 04/07/19 12:53 Corrected Calcium 9.7 mg/dL (8.5-10.1) 04/07/19 12:53 Magnesium 1.8 mg/dL (1.7-2.9) 04/07/19 12:53 Total Bilirubin 0.20 mg/dL (0.2-1.0) 04/07/19 12:53 AST 62 Units/L (15-37) H 04/07/19 12:53 ALT 95 Units/L (12-78) H 04/07/19 12:53 Alkaline Phosphatase 118 Units/L (46-116) H 04/07/19 12:53 Total Protein 7.7 g/dL (6.4-8.2) 04/07/19 12:53 Albumin 3.2 g/dL (3.4-5.0) L 04/07/19 12:53 Globulin 4.5 g/dL (2.5-4.5) 04/07/19 12:53 Albumin/Globulin Ratio 0.7 Ratio (1.1-2.1) L 04/07/19 12:53 Amylase 88 Units/L (25-115) 04/07/19 12:53 Lipase 181 Units/L (73-393) 04/07/19 12:53 Specimen Type Clean catch urine 04/07/19 14:56 Urine Color Yellow (YELLOW) 04/07/19 14:56 Urine Appearance Clear (CLEAR) 04/07/19 14:56 Urine pH 6.5 (5.0 - 8.0) 04/07/19 14:56 Ur Specific [place] 1.015 (1.000-1.030) 04/07/19 14:56 Urine Protein Negative (NEGATIVE) 04/07/19 14:56 Urine Glucose (UA) Negative (NEGATIVE) 04/07/19 14:56 Urine Ketones Negative (NEGATIVE) 04/07/19 14:56 Urine Occult Blood Negative (NEGATIVE) 04/07/19 14:56 Urine Nitrite Negative (NEGATIVE) 04/07/19 14:56 Urine Bilirubin Negative (NEGATIVE) 04/07/19 14:56 Urine Urobilinogen Normal (NORMAL) 04/07/19 14:56 Ur Leukocyte Esterase Negative (NEGATIVE) 04/07/19 14:56 Blood Type A POSITIVE 04/07/19 12:53 Antibody Screen Negative 04/07/19 12:53 - Assessment and Plan 1: abdominal pain , R/O volvulus of the cecum ,. no evidence of peritonitis . s/p recent appendectomy . Lung ca , on chemo Tx . to keep NPO , IVF .repeat abdominal xray - Problem Patient Problems: Patient Problems Abdominal pain (Acute) R10.9 Volvulus of intestine (Acute) K56.2 GI bleed (Acute) K92.2 Essential hypertension (Acute) I10 Cholelithiasis (Acute) K80.20
[2019-04-08] MEDS: D5 1/2 NS + KCL 20 MEQ/L 1,000 ML IV SCH ×3 (00:59→17:16)
[2019-04-08] MEDS: PROTONIX INJ 40 MG VIAL 80 MG in NS 100 ML IV 80 ML IV SCH ×3 (01:00→14:20)
[2019-04-08] MEDS: MORPHINE SULFATE INJ 2 MG INJ IVP PRN ×2 (03:58→09:17)
[2019-04-08] MEDS: ZOFRAN INJ 4 MG VIAL IVP PRN ×2 (03:59→09:14)
[2019-04-08] MEDS: FLAGYL IV PREMIX 500 MG BAG 500 MG/100 ML BAG IV SCH ×2 (05:19→14:21)
[2019-04-08 06:17] LABS: BASOPHILS % (AUTO) 0.3 % (0.2-1.0); HEMATOCRIT 28.4 % (36.0-47.0); HEMOGLOBIN 9.9 g/dL (12.0-16.0); LYMPHOCYTES # (AUTO) 0.6 X10^3/uL (1.3-2.9); LYMPHOCYTES % (AUTO) 13.3 % (21.0-51.0); MEAN CORPUSCULAR HEMOGLOBIN 29.5 pg (27.0-34.0); MEAN CORPUSCULAR HGB CONC 34.7 g/dL (33.0-35.0); MEAN PLATELET VOLUME 7.1 fL (7.4-11.0); MONOCYTES # (AUTO) 0.7 x10^3/uL (0.3-0.8); MONOCYTES % (AUTO) 16.6 % (0.0-13.0); NEUTROPHILS # (AUTO) 3.1 x10^3/uL (2.2-4.8); NEUTROPHILS % (AUTO) 68.8 % (42.0-75.0); PLATELET COUNT 419 X10^3/uL (150.0-450.0); RED BLOOD COUNT 3.35 X10^6/uL (3.5-5.4); RED CELL DISTRIBUTION WIDTH 20.1 % (11.6-16.5); WHITE BLOOD COUNT 4.5 X10^3/uL (3.6-10.0)
[2019-04-08 06:24] LABS: ALANINE AMINOTRANSFERASE 92 Units/L (12-78); ALBUMIN 2.8 g/dL (3.4-5.0); ALKALINE PHOSPHATASE 99 Units/L (46-116); ASPARTATE AMINO TRANSFERASE 59 Units/L (15-37); BLOOD UREA NITROGEN 5 mg/dL (7-18); CALCIUM 8.4 mg/dL (8.5-10.1); CARBON DIOXIDE 25.2 mmol/L (21-32); CHLORIDE 106 mmol/L (98-107); COR CA(FOR HYPOALB) 9.4 mg/dL (8.5-10.1); CREATININE 0.77 mg/dL (0.55-1.02); SODIUM 141 mmol/L (136-145); TOTAL PROTEIN 6.8 g/dL (6.4-8.2); eGFR NON BLACK RACES > 60 (>60)
[2019-04-08 06:38] LABS: PLATELET MORPHOLOGY COMMENT NORMAL (NORMAL)
[2019-04-08 06:39] LABS: ANISOCYTOSIS 1+
--- NOTE | 2019-04-08 07:18 | RAD ---
KUB Indication: Abdominal pain and bleeding. Comparison: CT from earlier the same day Findings: Clips project over the abdomen. Dilated loop of colon, compatible with cecal volvulus is essentially unchanged from the prior. Surgical consultation recommended. No convincing free air or pneumatosis identified. Impression: Cecal volvulus again noted. See previous CT report. Surgical follow-up recommended. No interval change in the overall bowel gas pattern. Reported By:
[2019-04-08] MEDS: SYNTHROID 125 mcg TAB PO SCH (07:30)
[2019-04-08] MEDS: FOLIC ACID TAB 1 MG PO SCH (09:14)
--- NOTE | 2019-04-08 12:07 | DR.PROGNOT ---
Hospital Progress Notes - Progress Note for Day of: Progress Note Date: 04/08/19 - Chief Complaint Chief Complaint: moderate abdominal pain today . had normal BM , no active bleeding . no vomiting and afebrile . abdominal xray still showing dilated cecum ( volvulus ) . CBC, CMP . lactic acid all normal . - Past Medical Family Social History Past Med/Fam/Surg Hx: No changes since H&P (lung ca with mets , on chemo Tx ) Allergies: Allergies latex Adverse Reaction (Verified 04/07/19 12:00) - Review Of Systems ROS: No change since H&P - Vital Signs Vital Signs: Temperature 97.7 F Pulse Rate [Right Radial] 89 Pulse Rate 84 Respiratory Rate 18 Blood Pressure [Right Arm] 162/77 Blood Pressure [Left Arm] 134/72 Blood Pressure 143/73 O2 Sat by Pulse Oximetry 96 - Physical Exam Oriented: Normal Eyes: Normal Ear: Normal Nose: Normal Respiratory: Normal Cardiovascular: Normal, Murmur GI:Auscultation: Normal GI:Palpation: Other (tender and distended RUQ , BS +. soft abdomen ) GI: Tenderness: RLQ (moderate abdominal distention , with tenderness , no rebound ,BS+) Skin: Normal, Decreased Turgur Musculoskeletal: Swelling Speech Pattern: Clear, Appropriate - Laboratory and Diagnostics Result Diagrams: 04/08/19 05:35 04/08/19 05:35 Labs: Laboratory WBC 4.5 X10^3/uL (3.6-10.0) 04/08/19 05:35 RBC 3.35 X10^6/uL (3.5-5.4) L 04/08/19 05:35 Hgb 9.9 g/dL (12.0-16.0) L 04/08/19 05:35 Hct 28.4 % (36.0-47.0) L 04/08/19 05:35 MCV 85.0 fL (80.0-100.0) 04/08/19 05:35 MCH 29.5 pg (27.0-34.0) 04/08/19 05:35 MCHC 34.7 g/dL (33.0-35.0) 04/08/19 05:35 RDW 20.1 % (11.6-16.5) H 04/08/19 05:35 Plt Count 419 X10^3/uL (150.0-450.0) 04/08/19 05:35 Plt Count Comment Adequate (ADEQUATE) 04/08/19 05:35 MPV 7.1 fL (7.4-11.0) L 04/08/19 05:35 Neut % (Auto) 68.8 % (42.0-75.0) 04/08/19 05:35 Lymph % (Auto) 13.3 % (21.0-51.0) L 04/08/19 05:35 [place] % (Auto) 16.6 % (0.0-13.0) H 04/08/19 05:35 Eos % (Auto) 1.0 % (0.9-2.9) 04/08/19 05:35 Baso % (Auto) 0.3 % (0.2-1.0) 04/08/19 05:35 Neut # (Auto) 3.1 x10^3/uL (2.2-4.8) 04/08/19 05:35 Lymph # (Auto) 0.6 X10^3/uL (1.3-2.9) L 04/08/19 05:35 [place] # (Auto) 0.7 x10^3/uL (0.3-0.8) 04/08/19 05:35 Eos # (Auto) 0.0 x10^3/uL (0.0-0.2) 04/08/19 05:35 Baso # (Auto) 0.0 X10^3/uL (0.0-0.1) 04/08/19 05:35 Absolute Nucleated RBC 0.0 /100WBC 04/08/19 05:35 Plt Morphology Comment Normal (NORMAL) 04/08/19 05:35 RBC Morphology Abnormal (NORMAL) A 04/08/19 05:35 Anisocytosis 1+ A 04/08/19 05:35 INR Target Range - 04/07/19 12:53 INR 0.98 (0.8-1.3) 04/07/19 12:53 APTT 36.3 SECONDS (22.9-36.5) 04/07/19 12:53 PTT Comment - 04/07/19 12:53 Sodium 141 mmol/L (136-145) 04/08/19 05:35 Corrected Sodium TNP 04/08/19 05:35 Potassium 3.6 mmol/L (3.5-5.1) 04/08/19 05:35 Chloride 106 mmol/L (98-107) 04/08/19 05:35 Carbon Dioxide 25.2 mmol/L (21-32) 04/08/19 05:35 BUN 5 mg/dL (7-18) L 04/08/19 05:35 Creatinine 0.77 mg/dL (0.55-1.02) 04/08/19 05:35 Est GFR (MDRD) Af Amer > 60 (>60) 04/08/19 05:35 Est GFR (MDRD) Non-Af > 60 (>60) 04/08/19 05:35 Glucose 97 mg/dL (65-99) 04/08/19 05:35 Lactic Acid 1.0 mmol/L (0.4-2.0) 04/07/19 21:38 Calcium 8.4 mg/dL (8.5-10.1) L 04/08/19 05:35 Corrected Calcium 9.4 mg/dL (8.5-10.1) 04/08/19 05:35 Magnesium 2.3 mg/dL (1.7-2.9) 04/08/19 05:35 Total Bilirubin 0.20 mg/dL (0.2-1.0) 04/08/19 05:35 AST 59 Units/L (15-37) H 04/08/19 05:35 ALT 92 Units/L (12-78) H 04/08/19 05:35 Alkaline Phosphatase 99 Units/L (46-116) 04/08/19 05:35 Total Protein 6.8 g/dL (6.4-8.2) 04/08/19 05:35 Albumin 2.8 g/dL (3.4-5.0) L 04/08/19 05:35 Globulin 4.0 g/dL (2.5-4.5) 04/08/19 05:35 Albumin/Globulin Ratio 0.7 Ratio (1.1-2.1) L 04/08/19 05:35 Amylase 88 Units/L (25-115) 04/07/19 12:53 Lipase 181 Units/L (73-393) 04/07/19 12:53 Specimen Type Clean catch urine 04/07/19 14:56 Urine Color Yellow (YELLOW) 04/07/19 14:56 Urine Appearance Clear (CLEAR) 04/07/19 14:56 Urine pH 6.5 (5.0 - 8.0) 04/07/19 14:56 Ur Specific [place] 1.015 (1.000-1.030) 04/07/19 14:56 Urine Protein Negative (NEGATIVE) 04/07/19 14:56 Urine Glucose (UA) Negative (NEGATIVE) 04/07/19 14:56 Urine Ketones Negative (NEGATIVE) 04/07/19 14:56 Urine Occult Blood Negative (NEGATIVE) 04/07/19 14:56 Urine Nitrite Negative (NEGATIVE) 04/07/19 14:56 Urine Bilirubin Negative (NEGATIVE) 04/07/19 14:56 Urine Urobilinogen Normal (NORMAL) 04/07/19 14:56 Ur Leukocyte Esterase Negative (NEGATIVE) 04/07/19 14:56 Stool Description 75g unformed, dark 04/08/19 09:10 Stl Occult Blood (IFOB) Positive (NEGATIVE) A 04/08/19 09:10 Blood Type A POSITIVE 04/07/19 12:53 Antibody Screen Negative 04/07/19 12:53 - Assessment and Plan 1: abdominal pain , R/O volvulus of the cecum ,. no evidence of peritonitis . s/p recent appendectomy . Lung ca , on chemo Tx . to keep NPO , IVF .repeat abdominal xray - Problem Patient Problems: Patient Problems Abdominal pain (Acute) R10.9 Volvulus of intestine (Acute) K56.2 GI bleed (Acute) K92.2 Essential hypertension (Acute) I10 Cholelithiasis (Acute) K80.20
[2019-04-08 16:38] VITALS: BP 135/77
[2019-04-08] MEDS ORDERED: PROTONIX INJ 40 MG VIAL ONE ×2 (22:00)
[2019-04-08] MEDS ORDERED: NS 100 ML IV ONE ×2 (22:00)
[2019-04-08] MEDS ORDERED: FLAGYL IV PREMIX 500 MG BAG IV ONE (22:00)
[2019-04-08] MEDS ORDERED: D5 ONE (22:00)
[2019-04-08] MEDS ORDERED: ZOFRAN INJ 4 MG VIAL ONE (22:00)
[2019-04-08] MEDS ORDERED: NORCO 5/325 MG TAB ONE (22:00)
[2019-04-08] MEDS ORDERED: 1/2 NS ONE (22:00)
[2019-04-08] MEDS ORDERED: KCL ONE (22:00)
[2019-04-09] MEDS ORDERED: FLAGYL IV PREMIX 500 MG BAG IV ONE (05:00)
[2019-04-09] MEDS ORDERED: SYNTHROID 125 mcg TAB PO ONE (06:00)
[2019-04-09] MEDS ORDERED: SYNTHROID 125 mcg TAB PO SCH (06:30)
[2019-04-09] MEDS ORDERED: PROTONIX INJ 40 MG VIAL IVP ONE ×2 (09:00→18:00)
[2019-04-09] MEDS ORDERED: FOLIC ACID TAB 1 MG PO ONE (09:00)
[2019-04-09] MEDS ORDERED: NS 100 ML IV IV ONE ×2 (09:00→18:00)
[2019-04-09] MEDS ORDERED: 1/2 NS IV ONE ×2 (11:00→18:00)
[2019-04-09] MEDS ORDERED: KCL IV ONE ×2 (11:00→18:00)
[2019-04-09] MEDS ORDERED: D5 IV ONE ×2 (11:00→18:00)
[2019-04-09] MEDS ORDERED: ZOFRAN INJ 4 MG VIAL IVP ONE (18:00)
[2019-04-10] MEDS ORDERED: KCL IV ONE ×3 (03:12→22:00)
[2019-04-10] MEDS ORDERED: D5 IV ONE ×3 (03:12→22:00)
[2019-04-10] MEDS ORDERED: 1/2 NS IV ONE ×3 (03:12→22:00)
[2019-04-10] MEDS ORDERED: SYNTHROID 125 mcg TAB PO ONE (07:00)
[2019-04-10] MEDS ORDERED: FOLIC ACID TAB 1 MG PO ONE (09:00)
[2019-04-10] MEDS ORDERED: PROTONIX INJ 40 MG VIAL IVP ONE (14:00)
[2019-04-11] MEDS ORDERED: PROTONIX INJ 40 MG VIAL ONE (04:03)
[2019-04-11] MEDS ORDERED: NS 100 ML IV ONE (04:03)
[2019-04-11] MEDS ORDERED: SYNTHROID 125 mcg TAB ONE (05:27)
[2019-04-11] MEDS ORDERED: FOLIC ACID TAB 1 MG ONE (09:13)
[2019-04-16 10:39] LABS: CARBON DIOXIDE 24.5 mmol/L (21-32); CHLORIDE 107 mmol/L (98-107); SODIUM 144 mmol/L (136-145)
[2019-04-16 10:40] LABS: ALANINE AMINOTRANSFERASE 131 Units/L (12-78); ALBUMIN 2.8 g/dL (3.4-5.0); ALKALINE PHOSPHATASE 95 Units/L (46-116); ASPARTATE AMINO TRANSFERASE 92 Units/L (15-37); BLOOD UREA NITROGEN 4 mg/dL (7-18); CALCIUM 8.5 mg/dL (8.5-10.1); COR CA(FOR HYPOALB) 9.5 mg/dL (8.5-10.1); CREATININE 0.81 mg/dL (0.55-1.02); TOTAL PROTEIN 6.6 g/dL (6.4-8.2); eGFR NON BLACK RACES > 60 (>60)
[2019-04-16 10:41] LABS: BASOPHILS % (AUTO) 0.4 % (0.2-1.0); EOSINOPHILS % (AUTO) 1.8 % (0.9-2.9); HEMATOCRIT 27.8 % (36.0-47.0); HEMOGLOBIN 9.7 g/dL (12.0-16.0); LYMPHOCYTES # (AUTO) 0.6 X10^3/uL (1.3-2.9); LYMPHOCYTES % (AUTO) 16.5 % (21.0-51.0); MEAN CORPUSCULAR HEMOGLOBIN 29.9 pg (27.0-34.0); MEAN CORPUSCULAR VOLUME 85.4 fL (80.0-100.0); MONOCYTES % (AUTO) 18.1 % (0.0-13.0); NEUTROPHILS # (AUTO) 2.2 x10^3/uL (2.2-4.8); NEUTROPHILS % (AUTO) 63.2 % (42.0-75.0); PLATELET COUNT 402 X10^3/uL (150.0-450.0); RED BLOOD COUNT 3.25 X10^6/uL (3.5-5.4); RED CELL DISTRIBUTION WIDTH 20.6 % (11.6-16.5); WHITE BLOOD COUNT 3.5 X10^3/uL (3.6-10.0)
[2019-04-16 10:42] LABS: ANISOCYTOSIS SLIGHT; EOSINOPHILS # (AUTO) 0.1 x10^3/uL (0.0-0.2); MONOCYTES # (AUTO) 0.6 x10^3/uL (0.3-0.8); PLATELET MORPHOLOGY COMMENT NORMAL (NORMAL)
[2019-04-16 14:44] LABS: BLOOD UREA NITROGEN 4 mg/dL (7-18); CARBON DIOXIDE 23.5 mmol/L (21-32); CHLORIDE 107 mmol/L (98-107); CREATININE 0.84 mg/dL (0.55-1.02); SODIUM 142 mmol/L (136-145); eGFR NON BLACK RACES > 60 (>60)
[2019-04-16 14:45] LABS: ASPARTATE AMINO TRANSFERASE 145 Units/L (15-37); CALCIUM 8.8 mg/dL (8.5-10.1)
[2019-04-16 14:46] LABS: ALANINE AMINOTRANSFERASE 178 Units/L (12-78); ALBUMIN 2.9 g/dL (3.4-5.0); ALKALINE PHOSPHATASE 100 Units/L (46-116); COR CA(FOR HYPOALB) 9.7 mg/dL (8.5-10.1); TOTAL PROTEIN 6.9 g/dL (6.4-8.2)
[2019-04-16 14:47] LABS: HEMATOCRIT 30.1 % (36.0-47.0); HEMOGLOBIN 10.3 g/dL (12.0-16.0)
[2019-04-16 14:48] LABS: BASOPHILS % (AUTO) 0.6 % (0.2-1.0); EOSINOPHILS # (AUTO) 0.1 x10^3/uL (0.0-0.2); EOSINOPHILS % (AUTO) 1.7 % (0.9-2.9); LYMPHOCYTES # (AUTO) 0.9 X10^3/uL (1.3-2.9); LYMPHOCYTES % (AUTO) 21.5 % (21.0-51.0); MEAN CORPUSCULAR HEMOGLOBIN 29.5 pg (27.0-34.0); MEAN CORPUSCULAR HGB CONC 34.3 g/dL (33.0-35.0); MONOCYTES # (AUTO) 0.8 x10^3/uL (0.3-0.8); MONOCYTES % (AUTO) 19.6 % (0.0-13.0); NEUTROPHILS # (AUTO) 2.3 x10^3/uL (2.2-4.8); NEUTROPHILS % (AUTO) 56.6 % (42.0-75.0); PLATELET COUNT 428 X10^3/uL (150.0-450.0); RED CELL DISTRIBUTION WIDTH 21.4 % (11.6-16.5)
[2019-04-16 14:49] LABS: ANISOCYTOSIS 1+; PLATELET MORPHOLOGY COMMENT NORMAL (NORMAL)
[2019-04-17 08:34] LABS: BLOOD UREA NITROGEN 3 mg/dL (7-18); CARBON DIOXIDE 24.4 mmol/L (21-32); CHLORIDE 107 mmol/L (98-107); SODIUM 142 mmol/L (136-145)
[2019-04-17 08:35] LABS: ALANINE AMINOTRANSFERASE 203 Units/L (12-78); ALKALINE PHOSPHATASE 94 Units/L (46-116); ASPARTATE AMINO TRANSFERASE 136 Units/L (15-37); CALCIUM 8.6 mg/dL (8.5-10.1); COR CA(FOR HYPOALB) 9.4 mg/dL (8.5-10.1); CREATININE 0.84 mg/dL (0.55-1.02); TOTAL PROTEIN 6.9 g/dL (6.4-8.2); eGFR NON BLACK RACES > 60 (>60)
[2019-04-17 08:36] LABS: BASOPHILS % (AUTO) 0.5 % (0.2-1.0); EOSINOPHILS % (AUTO) 0.8 % (0.9-2.9); HEMATOCRIT 30.1 % (36.0-47.0); HEMOGLOBIN 10.4 g/dL (12.0-16.0); LYMPHOCYTES % (AUTO) 19.8 % (21.0-51.0); MEAN CORPUSCULAR HEMOGLOBIN 29.6 pg (27.0-34.0); MEAN CORPUSCULAR HGB CONC 34.4 g/dL (33.0-35.0); MEAN CORPUSCULAR VOLUME 86.1 fL (80.0-100.0); MEAN PLATELET VOLUME 7.1 fL (7.4-11.0); NEUTROPHILS # (AUTO) 2.8 x10^3/uL (2.2-4.8); NEUTROPHILS % (AUTO) 57.9 % (42.0-75.0); PLATELET COUNT 432 X10^3/uL (150.0-450.0); RED CELL DISTRIBUTION WIDTH 21.4 % (11.6-16.5); WHITE BLOOD COUNT 4.8 X10^3/uL (3.6-10.0)
[2019-04-17 08:37] LABS: ANISOCYTOSIS 1+; PLATELET MORPHOLOGY COMMENT NORMAL (NORMAL)
== END 2019-04-11 13:30 | disposition home or self-care (01) | DRG 389 ==
LOC: ER 11:59 → ICU 11:59 → OBSVTOIN 15:28 → ICU 16:05 → UNDODISOB 04-11 13:30
PROVIDERS: ADMIT Surgery; ATTEND Internal Medicine
DX: R11.0 Nausea; K92.2 Gastrointestinal hemorrhage, unspecified; Z98.890 Other specified postprocedural states; C50.919 Malignant neoplasm of unspecified site of unspecified female breast; R10.84 Generalized abdominal pain; C34.90 Malignant neoplasm of unspecified part of unspecified bronchus or lung; E03.8 Other specified hypothyroidism; K21.9 Gastro-esophageal reflux disease without esophagitis; Z92.21 Personal history of antineoplastic chemotherapy; K80.20 Calculus of gallbladder without cholecystitis without obstruction; K56.2 Volvulus
CPT/HCPCS: 36415; 74000; 74018; 74176; 80053; 81003; 82150; 82270; 83605; 83690; 83735; 85025; 85610; 85730; 86850; 86900; 86901; 87493; 93005; 96365; 96367; 96374; 96375; 99284; A4216; A4222; C9113; S0030; G0378; J1642; J2270; J2405; J3475; J7030; J7050

== ENCOUNTER 2019-06-22 09:49 | Inpatient (IN) ==
[2019-06-22] MEDS ORDERED: TUSSIONEX PENNKINETIC SUSP PO PRN (12:01)
[2019-06-22] MEDS ORDERED: SALINE 3% 15 ML NEB TX NEB ONE (12:10)
[2019-06-22] MEDS: DUONEB 0.5 MG/3 MG NEB SCH ×3 (12:11→20:03)
[2019-06-22 12:23] LABS: BASOPHILS % (AUTO) 0.3 % (0.2-1.0); EOSINOPHILS # (AUTO) 0.1 x10^3/uL (0.0-0.2); EOSINOPHILS % (AUTO) 0.8 % (0.9-2.9); HEMATOCRIT 34.9 % (36.0-47.0); HEMOGLOBIN 11.9 g/dL (12.0-16.0); LYMPHOCYTES # (AUTO) 0.7 X10^3/uL (1.3-2.9); LYMPHOCYTES % (AUTO) 8.7 % (21.0-51.0); MEAN CORPUSCULAR HEMOGLOBIN 29.8 pg (27.0-34.0); MEAN CORPUSCULAR VOLUME 87.6 fL (80.0-100.0); MEAN PLATELET VOLUME 7.4 fL (7.4-11.0); MONOCYTES # (AUTO) 0.3 x10^3/uL (0.3-0.8); MONOCYTES % (AUTO) 3.3 % (0.0-13.0); NEUTROPHILS # (AUTO) 7.3 x10^3/uL (2.2-4.8); NEUTROPHILS % (AUTO) 86.9 % (42.0-75.0); PLATELET COUNT 295 X10^3/uL (150.0-450.0); RED BLOOD COUNT 3.98 X10^6/uL (3.5-5.4); RED CELL DISTRIBUTION WIDTH 15.8 % (11.6-16.5); WHITE BLOOD COUNT 8.4 X10^3/uL (3.6-10.0)
[2019-06-22] MEDS ORDERED: NS 1/2 1000 ML IV 1,000 ML IV ONE (12:23)
[2019-06-22] MEDS: NS 1/2 1000 ML IV 1,000 ML IV SCH (12:30)
[2019-06-22] MEDS: ROBITUSSIN DM PO SCH ×4 (12:30→21:04)
[2019-06-22] MEDS: VSL#3 PO SCH (12:31)
[2019-06-22] MEDS: TOPROL XL PO SCH (12:31)
[2019-06-22 12:35] VITALS: BMI 31.8
[2019-06-22 12:36] LABS: ALANINE AMINOTRANSFERASE 40 Units/L (12-78); ALBUMIN 3.2 g/dL (3.4-5.0); ALKALINE PHOSPHATASE 121 Units/L (46-116); ASPARTATE AMINO TRANSFERASE 53 Units/L (15-37); BLOOD UREA NITROGEN 13 mg/dL (7-18); CALCIUM 9.2 mg/dL (8.5-10.1); CARBON DIOXIDE 19.8 mmol/L (21-32); CHLORIDE 100 mmol/L (98-107); COR CA(FOR HYPOALB) 9.8 mg/dL (8.5-10.1); COR NA(FOR HYPERGLY) 135 mmol/L (136-145); CREATININE 1.17 mg/dL (0.55-1.02); SODIUM 134 mmol/L (136-145); TOTAL PROTEIN 7.9 g/dL (6.4-8.2); eGFR NON BLACK RACES 51 (>60)
[2019-06-22] MEDS ORDERED: POTASSIUM CHLORIDE LIQ 20 MEQ UDC PO PRN (12:38)
[2019-06-22] MEDS ORDERED: K-DUR TAB 20 MEQ PO PRN (12:38)
[2019-06-22] MEDS ORDERED: K-RIDER 10 MEQ/NS 100 ML 10 MEQ/100 ML BAG IV PRN (12:38)
[2019-06-22] MEDS ORDERED: KLOR-CON PO PRN (12:38)
[2019-06-22] MEDS ORDERED: POTASSIUM CHL 40 MEQ/NS 0.45% 500 ML IV PRN (12:38)
[2019-06-22] MEDS ORDERED: POTASSIUM CHL 60 MEQ/NS 0.45% 500 ML IV PRN (12:38)
[2019-06-22] MEDS: MICRO K EXTEN CAP 10 MEQ PO PRN (13:09)
[2019-06-22] MEDS: LEVAQUIN PREMIX IV 750 MG 750 MG/150 ML BAG IV SCH (13:21)
[2019-06-22] MEDS: FORTAZ or TAZICEF VIAL INJ 1 G in NS 100 ML IV + SPIKE MINIBAG* 100 ML IV SCH ×2 (14:15→21:04)
[2019-06-22] MEDS ORDERED: SYNTHROID 125 mcg TAB PO SCH (16:30)
--- NOTE | 2019-06-22 16:37 | RAD ---
HISTORY: Pneumonia Study: Single view of the chest. Comparison: None. Findings: The cardiomediastinal silhouette is normal. Bilateral perihilar interstitial prominence and streaky opacities. Osseous structures demonstrate no acute abnormality. IMPRESSION: 1. Findings as above suggestive of either centralized pulmonary edema or developing atypical infection. Reported By:
[2019-06-22] MEDS: PULMICORT NEB TX 0.5 MG NEB SCH (20:03)
[2019-06-22] MEDS: PATIENT'S HOME MEDICATION PO SCH (21:09)
[2019-06-23] MEDS: DUONEB 0.5 MG/3 MG NEB SCH (00:35)
[2019-06-23] MEDS ORDERED: TYLENOL 325 MG TAB PO PRN (02:22)
[2019-06-23] MEDS ORDERED: TYLENOL 325 MG TAB PO ONE (02:25)
[2019-06-23 04:46] LABS: BASOPHILS % (AUTO) 0.4 % (0.2-1.0); EOSINOPHILS % (AUTO) 0.6 % (0.9-2.9); HEMATOCRIT 30.1 % (36.0-47.0); HEMOGLOBIN 10.2 g/dL (12.0-16.0); LYMPHOCYTES # (AUTO) 0.6 X10^3/uL (1.3-2.9); LYMPHOCYTES % (AUTO) 9.8 % (21.0-51.0); MEAN CORPUSCULAR HEMOGLOBIN 29.8 pg (27.0-34.0); MEAN CORPUSCULAR VOLUME 87.5 fL (80.0-100.0); MEAN PLATELET VOLUME 7.8 fL (7.4-11.0); MONOCYTES # (AUTO) 0.6 x10^3/uL (0.3-0.8); MONOCYTES % (AUTO) 9.1 % (0.0-13.0); NEUTROPHILS # (AUTO) 5.1 x10^3/uL (2.2-4.8); NEUTROPHILS % (AUTO) 80.1 % (42.0-75.0); PLATELET COUNT 280 X10^3/uL (150.0-450.0); RED BLOOD COUNT 3.44 X10^6/uL (3.5-5.4); RED CELL DISTRIBUTION WIDTH 16.1 % (11.6-16.5); WHITE BLOOD COUNT 6.4 X10^3/uL (3.6-10.0)
[2019-06-23] MEDS: XOPENEX 1.25 MG/3 ML NEBULE NEB SCH ×3 (05:01→20:20)
[2019-06-23 05:02] LABS: ALANINE AMINOTRANSFERASE 32 Units/L (12-78); ALBUMIN 2.7 g/dL (3.4-5.0); ALKALINE PHOSPHATASE 99 Units/L (46-116); ASPARTATE AMINO TRANSFERASE 46 Units/L (15-37); BLOOD UREA NITROGEN 11 mg/dL (7-18); CALCIUM 8.7 mg/dL (8.5-10.1); CARBON DIOXIDE 22.1 mmol/L (21-32); CHLORIDE 103 mmol/L (98-107); COR CA(FOR HYPOALB) 9.7 mg/dL (8.5-10.1); CREATININE 0.98 mg/dL (0.55-1.02); SODIUM 138 mmol/L (136-145); TOTAL PROTEIN 6.9 g/dL (6.4-8.2); eGFR NON BLACK RACES > 60 (>60)
[2019-06-23] MEDS: FORTAZ or TAZICEF VIAL INJ 1 G in NS 100 ML IV + SPIKE MINIBAG* 100 ML IV SCH ×3 (05:29→22:14)
--- NOTE | 2019-06-23 06:34 | RAD ---
Examination: AP chest History: SOB Comparison 06/22/2019 Findings: Continued stable heart size and no change in position of the right IJ catheter. Persistent bilateral upper lobe infiltrates are present with slight apparent progression, at least on the right, since 1 day prior. The lung bases remain relatively clear. Impression: Bilateral upper lobe infiltrates with slight apparent increase, consistent with pneumonia. Reported By:
[2019-06-23] MEDS: PULMICORT NEB TX 0.5 MG NEB SCH ×2 (09:01→20:20)
[2019-06-23] MEDS ORDERED: NS 1/2 1000 ML IV 1,000 ML IV ONE (10:32)
[2019-06-23] MEDS: NS 1/2 1000 ML IV 1,000 ML IV SCH ×2 (10:38→19:38)
[2019-06-23] MEDS: VSL#3 PO SCH (10:40)
[2019-06-23] MEDS: LEVAQUIN PREMIX IV 750 MG 750 MG/150 ML BAG IV SCH (10:40)
[2019-06-23] MEDS: ROBITUSSIN DM PO SCH ×4 (10:41→20:38)
[2019-06-23] MEDS: TOPROL XL PO SCH (10:41)
[2019-06-23] MEDS ORDERED: NS 100 ML IV 100 ML IV ONE (14:14)
[2019-06-23] MEDS: PriLOSEC PO SCH ×2 (14:20→20:38)
[2019-06-23] MEDS: FOLIC ACID TAB 1 MG PO SCH (16:32)
[2019-06-23] MEDS: PREDNISONE TAB 5 MG PO SCH (16:32)
[2019-06-23] MEDS: TORADOL 30 MG VIAL IVP SCH ×2 (17:08→22:14)
[2019-06-23] MEDS: PATIENT'S HOME MEDICATION PO SCH (20:38)
[2019-06-24] MEDS ORDERED: NS 1/2 1000 ML IV 1,000 ML IV ONE ×2 (01:18→18:53)
[2019-06-24] MEDS: NS 1/2 1000 ML IV 1,000 ML IV SCH ×4 (01:59→21:55)
[2019-06-24 04:50] LABS: BASOPHILS % (AUTO) 0.3 % (0.2-1.0); EOSINOPHILS # (AUTO) 0.1 x10^3/uL (0.0-0.2); EOSINOPHILS % (AUTO) 0.9 % (0.9-2.9); HEMATOCRIT 29.7 % (36.0-47.0); LYMPHOCYTES # (AUTO) 0.7 X10^3/uL (1.3-2.9); MEAN CORPUSCULAR HEMOGLOBIN 29.3 pg (27.0-34.0); MEAN CORPUSCULAR HGB CONC 33.7 g/dL (33.0-35.0); MEAN CORPUSCULAR VOLUME 87.1 fL (80.0-100.0); MEAN PLATELET VOLUME 7.9 fL (7.4-11.0); MONOCYTES # (AUTO) 0.6 x10^3/uL (0.3-0.8); MONOCYTES % (AUTO) 8.8 % (0.0-13.0); PLATELET COUNT 330 X10^3/uL (150.0-450.0); RED BLOOD COUNT 3.41 X10^6/uL (3.5-5.4); RED CELL DISTRIBUTION WIDTH 15.9 % (11.6-16.5); WHITE BLOOD COUNT 6.4 X10^3/uL (3.6-10.0)
[2019-06-24] MEDS: XOPENEX 1.25 MG/3 ML NEBULE NEB SCH ×3 (04:59→20:06)
[2019-06-24 05:00] LABS: ALANINE AMINOTRANSFERASE 33 Units/L (12-78); ALBUMIN 2.6 g/dL (3.4-5.0); ALKALINE PHOSPHATASE 98 Units/L (46-116); ASPARTATE AMINO TRANSFERASE 55 Units/L (15-37); BLOOD UREA NITROGEN 10 mg/dL (7-18); CALCIUM 8.8 mg/dL (8.5-10.1); CARBON DIOXIDE 23.2 mmol/L (21-32); CHLORIDE 104 mmol/L (98-107); COR CA(FOR HYPOALB) 9.9 mg/dL (8.5-10.1); CREATININE 0.84 mg/dL (0.55-1.02); SODIUM 140 mmol/L (136-145); TOTAL PROTEIN 6.9 g/dL (6.4-8.2); eGFR NON BLACK RACES > 60 (>60)
[2019-06-24] MEDS: FORTAZ or TAZICEF VIAL INJ 1 G in NS 100 ML IV + SPIKE MINIBAG* 100 ML IV SCH ×3 (06:06→21:56)
[2019-06-24] MEDS: SYNTHROID 125 mcg TAB PO SCH (06:06)
[2019-06-24] MEDS: TORADOL 30 MG VIAL IVP SCH ×3 (06:07→22:42)
--- NOTE | 2019-06-24 07:39 | RAD ---
HISTORY: 54-year-old female with shortness of breath. History of lung and breast cancer. Study: Frontal view of the chest. Comparison: Chest radiograph 06/23/2019 Findings: Right chest chemo port via IJ approach is unchanged. The trachea is midline. The cardiac silhouette is stably enlarged with persistent perihilar airspace opacities and bilateral apical airspace opacities with trace left effusion. No pneumothorax. Soft tissues are unremarkable. Osseous structures are unremarkable. IMPRESSION: 1. No significant interval change with findings consistent with multifocal multi lobar pneumonia in a patient with known history of lung and breast cancer. Reported By:
[2019-06-24] MEDS: TOPROL XL PO SCH (08:28)
[2019-06-24] MEDS: PREDNISONE TAB 5 MG PO SCH (08:28)
[2019-06-24] MEDS: ROBITUSSIN DM PO SCH ×4 (08:28→20:26)
[2019-06-24] MEDS: LEVAQUIN PREMIX IV 750 MG 750 MG/150 ML BAG IV SCH (08:28)
[2019-06-24] MEDS: PriLOSEC PO SCH ×2 (08:28→20:26)
[2019-06-24] MEDS: FOLIC ACID TAB 1 MG PO SCH (08:28)
[2019-06-24] MEDS: VSL#3 PO SCH (08:29)
[2019-06-24] MEDS: PULMICORT NEB TX 0.5 MG NEB SCH (09:11)
[2019-06-24] MEDS ORDERED: SOLU-Medrol 40 MG VIAL ONE (10:25)
[2019-06-24] MEDS: SOLU-Medrol 40 MG VIAL IVP SCH ×2 (10:30→20:27)
[2019-06-24 12:31] LABS: ABG BASE EXCESS 1.5 mmol/L (-2.0-2.0); ABG HCO3 24.6 mmol/L (22-26)
[2019-06-24] MEDS ORDERED: NS 100 ML IV + SPIKE MINIBAG* 100 ML IV ONE (13:12)
[2019-06-24] MEDS: DIFLUCAN 200 MG IV PREMIX* 200 MG/100 ML BAG IV SCH (16:01)
[2019-06-24] MEDS: DECADRON JET NEB (RESP USE) NEB SCH (20:06)
[2019-06-24] MEDS: LOVENOX INJ 30 MG SYR SC SCH (20:24)
[2019-06-24] MEDS: PATIENT'S HOME MEDICATION PO SCH (20:26)
--- NOTE | 2019-06-24 20:51 | DR.UPDATE ---
H&P Update History and Physical Update: History and Physical reviewed and patient examined. Changes noted: Yes with the following: PRESENTED TO THE OFFICE TODAY WITH COMPLAINTS OF PERSISENT COUGH, SHORTNESS OF BREATH, AND FEVER. SHE HAS BEEN TAKING AUGMENTIN 875/125MG PO BID FOR THE PAST 10 DAYS WITHOUT IMPROVEMENT IN SYMPTOMS. WE ADMITTED PATIENT FOR FURTHER EVALUATION AND TREATMENT OF BRONCHOPNEUMONIA. ON ADMISSION, WE PLAN TO OBTAIN LABS AND CHEST XRAY. WE WILL START THE PNEUMONIA PROTOCOL WITH IV FORTAZ, IV LEVAQUIN, RESPIRATORY TREATMENTS, AND SUPPLEMENTAL OXYGEN. OTHERWISE, WE PLAN TO FOLLOW UP WITH AM LABS AND CONTINUE TO MONITOR.
[2019-06-25 04:56] LABS: BASOPHILS % (AUTO) 0.1 % (0.2-1.0); HEMATOCRIT 29.4 % (36.0-47.0); HEMOGLOBIN 10.1 g/dL (12.0-16.0); LYMPHOCYTES # (AUTO) 0.4 X10^3/uL (1.3-2.9); LYMPHOCYTES % (AUTO) 6.5 % (21.0-51.0); MEAN CORPUSCULAR HEMOGLOBIN 29.8 pg (27.0-34.0); MEAN CORPUSCULAR HGB CONC 34.3 g/dL (33.0-35.0); MEAN CORPUSCULAR VOLUME 86.8 fL (80.0-100.0); MEAN PLATELET VOLUME 7.9 fL (7.4-11.0); MONOCYTES # (AUTO) 0.1 x10^3/uL (0.3-0.8); MONOCYTES % (AUTO) 1.4 % (0.0-13.0); NEUTROPHILS # (AUTO) 5.5 x10^3/uL (2.2-4.8); PLATELET COUNT 337 X10^3/uL (150.0-450.0); RED BLOOD COUNT 3.38 X10^6/uL (3.5-5.4)
[2019-06-25 05:01] LABS: ALANINE AMINOTRANSFERASE 33 Units/L (12-78); ALBUMIN 2.6 g/dL (3.4-5.0); ALKALINE PHOSPHATASE 101 Units/L (46-116); ASPARTATE AMINO TRANSFERASE 59 Units/L (15-37); BLOOD UREA NITROGEN 13 mg/dL (7-18); CALCIUM 9.2 mg/dL (8.5-10.1); CARBON DIOXIDE 22.7 mmol/L (21-32); CHLORIDE 104 mmol/L (98-107); COR CA(FOR HYPOALB) 10.3 mg/dL (8.5-10.1); COR NA(FOR HYPERGLY) 141 mmol/L (136-145); CREATININE 0.87 mg/dL (0.55-1.02); SODIUM 140 mmol/L (136-145); TOTAL PROTEIN 6.9 g/dL (6.4-8.2); eGFR NON BLACK RACES > 60 (>60)
[2019-06-25] MEDS ORDERED: NS 100 ML IV 100 ML IV ONE ×2 (05:04→14:09)
[2019-06-25] MEDS: FORTAZ or TAZICEF VIAL INJ 1 G in NS 100 ML IV + SPIKE MINIBAG* 100 ML IV SCH ×3 (05:20→21:03)
[2019-06-25 05:35] LABS: HYPOCHROMASIA SLIGHT; PLATELET MORPHOLOGY COMMENT NORMAL (NORMAL)
[2019-06-25] MEDS: XOPENEX 1.25 MG/3 ML NEBULE NEB SCH ×3 (06:00→21:20)
[2019-06-25] MEDS: TORADOL 30 MG VIAL IVP SCH ×3 (06:04→22:26)
[2019-06-25] MEDS: SYNTHROID 125 mcg TAB PO SCH (06:12)
[2019-06-25] MEDS ORDERED: NS 1/2 1000 ML IV 1,000 ML IV ONE ×2 (06:41→22:30)
[2019-06-25] MEDS: NS 1/2 1000 ML IV 1,000 ML IV SCH ×2 (06:51→10:13)
[2019-06-25] MEDS: LEVAQUIN PREMIX IV 750 MG 750 MG/150 ML BAG IV SCH (08:51)
[2019-06-25] MEDS: VSL#3 PO SCH (08:51)
[2019-06-25] MEDS: TOPROL XL PO SCH (08:51)
[2019-06-25] MEDS: FOLIC ACID TAB 1 MG PO SCH (08:52)
[2019-06-25] MEDS: PriLOSEC PO SCH ×2 (08:52→20:59)
[2019-06-25] MEDS: LOVENOX INJ 30 MG SYR SC SCH ×2 (08:53→20:17)
[2019-06-25] MEDS: ROBITUSSIN DM PO SCH ×4 (08:53→20:59)
[2019-06-25] MEDS: SOLU-Medrol 40 MG VIAL IVP SCH ×2 (08:56→21:02)
[2019-06-25] MEDS: DECADRON JET NEB (RESP USE) NEB SCH ×2 (09:37→21:20)
[2019-06-25] MEDS: DIFLUCAN 200 MG IV PREMIX* 200 MG/100 ML BAG IV SCH (10:13)
--- NOTE | 2019-06-25 13:58 | CT ---
HISTORY: Pneumonia, shortness of breath Study: CT chest with contrast Comparison: 06/21/2017 Technique: Axial post-contrast images with coronal and sagittal reformats. Dose reduction procedures were used with mA/kv adjusted for body size. Findings: Examination of the mediastinum demonstrated no evidence for mediastinal masses, enlarged mediastinal or enlarged hilar adenopathy. Significant aortic abnormality or significant pleural effusion. No chest wall or axillary abnormality is identified. Those portions of the upper abdominal organs visualized were within normal limits. Examination of the lung garcia demonstrated diffuse ground-glass infiltrates involving the entirety of the right lung and to a lesser extent the left upper and portions of the left lower lobes. These could be consistent with multifocal pneumonia or respiratory bronchiolitis. There are no definite areas of consolidation present. In irregular mass in the superior segment of the left lower lobe now measures 1.5 x 1.3 cm as compared to 1.7 x 1.8 cm on the prior examination in 2017. No significant pleural effusions are identified. IMPRESSION: Diffuse ground-glass infiltrates involving the entirety of the right lung portions of the left upper and left lower lobe most likely due to multifocal respiratory bronchiolitis although multifocal pneumonia is possible. Reported By:
--- NOTE | 2019-06-25 20:21 | PCM.PROG ---
Progress Note - Progress Note for Day of Date of Exam: 06/23/19 - Subjective Subjective: IS BEING TREATED FOR MULTILOBE PNEUMONIA. TODAY, SHE IS ALERT AND ORIENTED, LYING IN BED ON MORNING ROUNDS. SHE CONTINUES WITH A PRODUCTIVE COUGH AND SHORTNESS OF BREATH. SHE ALSO REPORTS RIB PAIN WHEN COUGHING. SHE HAS BEEN FEBRILE THROUGHOUT THE NIGHT. ON EXAMINATION, BILATERAL LUNGS ARE NOTED WITH SCATTERED WHEEZING AND RHONCHI THROUGHOUT. ABDOMEN IS ROUND, SOFT, AND NON-TENDER WITH NORMAL BOWEL SOUNDS NOTED IN ALL QUADRANTS. HER VITALS THIS MORNING ARE: 99.3-84-20-98%-155/98. LABS WERE OBTAINED. ABNORMAL LAB VALUES INCLUDE THE FOLLOWING: RBC 3.44, HGB 10.2, HCT 30.1, GLUCOSE 101, AST 46, ALBUMIN 2.7. A CHEST XRAY WAS OBTAINED AND REVEALED: Bilateral upper lobe infiltrates with slight apparent increase, consistent with pneumonia. SHE IS CURRENTLY ON FORTAZ 1G IV DAILY, LEVAQUIN 750 MG IV DAILY, AND RESPIRATORY TREATMENTS. TODAY, WE WILL START TORADOL 30MG IV Q8H JAVIER AND WILL RESUME HER HOME MEDICATIONS. OTHERWISE, WE WILL FOLLOW UP WITH AM LABS AND CONTINUE TO MONITOR. - Past Medical Family Social History Past Med/Fam/Surg Hx: No changes since H&P Allergies: Allergies latex Adverse Reaction (Verified 04/07/19 12:00) - Review of Systems ROS: No change since H&P - Vital Signs and I&O's Vital Signs: Temperature 98.1 F Pulse Rate 90 Respiratory Rate 23 Blood Pressure [Right Arm] 135/77 Blood Pressure 178/95 O2 Sat by Pulse Oximetry 94 Intake and Output: Intake & Output 06/23/19 06/24/19 06/25/19 06/26/19 11:59 11:59 11:59 11:59 Intake Total 2822 / 2822 3037 / 3037 3070 / 3070 3420 / 3420 Output Total 100 / 100 301 / 301 Balance 2822 / 2822 2937 / 2937 2769 / 2769 3420 / 3420 - Physical Exam Oriented: Normal Eyes: Normal Ear: Normal Nose: Normal Throat: Normal Respiratory: Generalized, Diminished, Wheezes, Rhonchi Cardiovascular: Normal. negative: S3, S4, Murmur : Normal Auscultation: Bowel Sounds: Normal Palpation: Normal Tenderness: Normal Skin: Normal Musculoskeletal: Normal Psychiatric: Normal Mood Description: Calm Affect: Normal Speech Pattern: Clear, Appropriate - Laboratory and Diagnostics Result Diagrams: 06/25/19 04:05 06/25/19 04:05 Labs: 06/23/19 14:40 Sputum - Expectorated Sputum Sputum Culture - Final 06/23/19 14:40 Sputum - Expectorated Sputum - Final Laboratory WBC 6.0 X10^3/uL (3.6-10.0) 06/25/19 04:05 RBC 3.38 X10^6/uL (3.5-5.4) L 06/25/19 04:05 Hgb 10.1 g/dL (12.0-16.0) L 06/25/19 04:05 Hct 29.4 % (36.0-47.0) L 06/25/19 04:05 MCV 86.8 fL (80.0-100.0) 06/25/19 04:05 MCH 29.8 pg (27.0-34.0) 06/25/19 04:05 MCHC 34.3 g/dL (33.0-35.0) 06/25/19 04:05 RDW 16.0 % (11.6-16.5) 06/25/19 04:05 Plt Count 337 X10^3/uL (150.0-450.0) 06/25/19 04:05 Plt Count Comment Adequate (ADEQUATE) 06/25/19 04:05 MPV 7.9 fL (7.4-11.0) 06/25/19 04:05 Neut % (Auto) 92.0 % (42.0-75.0) H 06/25/19 04:05 Lymph % (Auto) 6.5 % (21.0-51.0) L 06/25/19 04:05 [place] % (Auto) 1.4 % (0.0-13.0) 06/25/19 04:05 Eos % (Auto) 0.0 % (0.9-2.9) L 06/25/19 04:05 Baso % (Auto) 0.1 % (0.2-1.0) L 06/25/19 04:05 Neut # (Auto) 5.5 x10^3/uL (2.2-4.8) H 06/25/19 04:05 Lymph # (Auto) 0.4 X10^3/uL (1.3-2.9) L 06/25/19 04:05 [place] # (Auto) 0.1 x10^3/uL (0.3-0.8) L 06/25/19 04:05 Eos # (Auto) 0.0 x10^3/uL (0.0-0.2) 06/25/19 04:05 Baso # (Auto) 0.0 X10^3/uL (0.0-0.1) 06/25/19 04:05 Absolute Nucleated RBC 0.2 /100WBC 06/25/19 04:05 Total Counted 100 06/25/19 04:05 Neutrophils % (Manual) 87 % (39-76) H 06/25/19 04:05 Lymphocytes % (Manual) 10 % (13-43) L 06/25/19 04:05 Monocytes % (Manual) 3 % (4-9) L 06/25/19 04:05 Plt Morphology Comment Normal (NORMAL) 06/25/19 04:05 RBC Morphology Abnormal (NORMAL) A 06/25/19 04:05 Hypochromasia Slight A 06/25/19 04:05 ESR 105 MM/HOUR (0-20) H 06/25/19 04:05 APTT 40.2 SECONDS (22.9-36.5) H 06/25/19 04:05 PTT Comment - 06/25/19 04:05 Sample Site Left brachial 06/24/19 12:25 ABG pH 7.480 (7.35-7.45) H 06/24/19 12:25 ABG pCO2 33.0 mmHg (35.0-45.0) L 06/24/19 12:25 ABG pO2 62.0 mmHg (80.0-100.0) L 06/24/19 12:25 ABG HCO3 24.6 mmol/L (22-26) 06/24/19 12:25 ABG O2 Saturation 93.0 % (90-100) 06/24/19 12:25 ABG Base Excess 1.5 mmol/L (-2.0-2.0) 06/24/19 12:25 Oneil Test Na 06/24/19 12:25 A-a Gradient 96.0 mmHg 06/24/19 12:25 FiO2 28.0 06/24/19 12:25 Blood Gas Comments Maryse well aw 06/24/19 12:25 Sodium 140 mmol/L (136-145) 06/25/19 04:05 Corrected Sodium 141 mmol/L (136-145) 06/25/19 04:05 Potassium 4.1 mmol/L (3.5-5.1) 06/25/19 04:05 Chloride 104 mmol/L (98-107) 06/25/19 04:05 Carbon Dioxide 22.7 mmol/L (21-32) 06/25/19 04:05 BUN 13 mg/dL (7-18) 06/25/19 04:05 Creatinine 0.87 mg/dL (0.55-1.02) 06/25/19 04:05 Est GFR (MDRD) Af Amer > 60 (>60) 06/25/19 04:05 Est GFR (MDRD) Non-Af > 60 (>60) 06/25/19 04:05 Glucose 132 mg/dL (65-99) H 06/25/19 04:05 Calcium 9.2 mg/dL (8.5-10.1) 06/25/19 04:05 Corrected Calcium 10.3 mg/dL (8.5-10.1) H 06/25/19 04:05 Magnesium 2.0 mg/dL (1.7-2.9) 06/23/19 04:25 Total Bilirubin 0.20 mg/dL (0.2-1.0) 06/25/19 04:05 AST 59 Units/L (15-37) H 06/25/19 04:05 ALT 33 Units/L (12-78) 06/25/19 04:05 Alkaline Phosphatase 101 Units/L (46-116) 06/25/19 04:05 C-Reactive Protein 60.00 mg/L (0-3.0) H 06/25/19 04:05 Total Protein 6.9 g/dL (6.4-8.2) 06/25/19 04:05 Albumin 2.6 g/dL (3.4-5.0) L 06/25/19 04:05 Globulin 4.3 g/dL (2.5-4.5) 06/25/19 04:05 Albumin/Globulin Ratio 0.6 Ratio (1.1-2.1) L 06/25/19 04:05 - Plan (1) Multifocal pneumonia Status: Acute Plan: IV FORTAZ, IV LEVAQUIN, RESPIRATORY TREATMENTS, SUPPLEMENTAL OXYGEN, CONTINUE TO MONITOR
--- NOTE | 2019-06-25 20:40 | PCM.PROG ---
Progress Note - Progress Note for Day of Date of Exam: 06/24/19 - Subjective Subjective: IS BEING TREATED FOR MULTILOBE PNEUMONIA. TODAY, SHE IS ALERT AND ORIENTED, LYING IN BED ON MORNING ROUNDS. SHE CONTINUES WITH A PRODUCTIVE COUGH AND SHORTNESS OF BREATH. SHE ALSO REPORTS RIB PAIN WHEN COUGHING. SHE HAS BEEN FEBRILE THROUGHOUT THE NIGHT. ON EXAMINATION, BILATERAL LUNGS ARE NOTED WITH SCATTERED WHEEZING AND RHONCHI THROUGHOUT. ABDOMEN IS ROUND, SOFT, AND NON-TENDER WITH NORMAL BOWEL SOUNDS NOTED IN ALL QUADRANTS. HER VITALS THIS MORNING ARE: 98.8-103-29-97%-167/81. LABS WERE OBTAINED. ABNORMAL LAB VALUES INCLUDE THE FOLLOWING: RBC 3.41, HGB 10.0, HCT 29.7, GLUCOSE 101, AST 46, ALUBUMIN 2.6. A CHEST XRAY WAS OBTAINED AND REVEALED: No significant interval change with findings consistent with multifocal multi lobar pneumonia in a patient with known history of lung and breast cancer. SHE IS CURRENTLY ON FORTAZ 1G IV DAILY, LEVAQUIN 750 MG IV DAILY, RESPIRATORY TREATMENTS, AND TORADOL. TODAY, WE WILL START SOLU-MEDROL 60MG IV Q12H AND DIFLUCAN 200MG IV DAILY. WE WILL OBTAIN A CHEST CT IN THE MORNING. OTHERWISE, WE WILL FOLLOW UP WITH AM LABS AND CONTINUE TO MONITOR. - Past Medical Family Social History Past Med/Fam/Surg Hx: No changes since H&P Allergies: Allergies latex Adverse Reaction (Verified 04/07/19 12:00) - Review of Systems ROS: No change since H&P - Vital Signs and I&O's Vital Signs: Temperature 98.1 F Pulse Rate 90 Respiratory Rate 23 Blood Pressure [Right Arm] 135/77 Blood Pressure 178/95 O2 Sat by Pulse Oximetry 94 Intake and Output: Intake & Output 06/23/19 06/24/19 06/25/19 06/26/19 11:59 11:59 11:59 11:59 Intake Total 2822 / 2822 3037 / 3037 3070 / 3070 3420 / 3420 Output Total 100 / 100 301 / 301 Balance 2822 / 2822 2937 / 2937 2769 / 2769 3420 / 3420 - Physical Exam Oriented: Normal Eyes: Normal Ear: Normal Nose: Normal Throat: Normal Respiratory: Generalized, Diminished, Wheezes, Rhonchi Cardiovascular: Normal. negative: S3, S4, Murmur : Normal Auscultation: Bowel Sounds: Normal Palpation: Normal Tenderness: Normal Skin: Normal Musculoskeletal: Normal Psychiatric: Normal Mood Description: Calm Affect: Normal Speech Pattern: Clear, Appropriate - Laboratory and Diagnostics Result Diagrams: 06/25/19 04:05 06/25/19 04:05 Labs: 06/23/19 14:40 Sputum - Expectorated Sputum Sputum Culture - Final 06/23/19 14:40 Sputum - Expectorated Sputum - Final Laboratory WBC 6.0 X10^3/uL (3.6-10.0) 06/25/19 04:05 RBC 3.38 X10^6/uL (3.5-5.4) L 06/25/19 04:05 Hgb 10.1 g/dL (12.0-16.0) L 06/25/19 04:05 Hct 29.4 % (36.0-47.0) L 06/25/19 04:05 MCV 86.8 fL (80.0-100.0) 06/25/19 04:05 MCH 29.8 pg (27.0-34.0) 06/25/19 04:05 MCHC 34.3 g/dL (33.0-35.0) 06/25/19 04:05 RDW 16.0 % (11.6-16.5) 06/25/19 04:05 Plt Count 337 X10^3/uL (150.0-450.0) 06/25/19 04:05 Plt Count Comment Adequate (ADEQUATE) 06/25/19 04:05 MPV 7.9 fL (7.4-11.0) 06/25/19 04:05 Neut % (Auto) 92.0 % (42.0-75.0) H 06/25/19 04:05 Lymph % (Auto) 6.5 % (21.0-51.0) L 06/25/19 04:05 Bradford % (Auto) 1.4 % (0.0-13.0) 06/25/19 04:05 Eos % (Auto) 0.0 % (0.9-2.9) L 06/25/19 04:05 Baso % (Auto) 0.1 % (0.2-1.0) L 06/25/19 04:05 Neut # (Auto) 5.5 x10^3/uL (2.2-4.8) H 06/25/19 04:05 Lymph # (Auto) 0.4 X10^3/uL (1.3-2.9) L 06/25/19 04:05 Bradford # (Auto) 0.1 x10^3/uL (0.3-0.8) L 06/25/19 04:05 Eos # (Auto) 0.0 x10^3/uL (0.0-0.2) 06/25/19 04:05 Baso # (Auto) 0.0 X10^3/uL (0.0-0.1) 06/25/19 04:05 Absolute Nucleated RBC 0.2 /100WBC 06/25/19 04:05 Total Counted 100 06/25/19 04:05 Neutrophils % (Manual) 87 % (39-76) H 06/25/19 04:05 Lymphocytes % (Manual) 10 % (13-43) L 06/25/19 04:05 Monocytes % (Manual) 3 % (4-9) L 06/25/19 04:05 Plt Morphology Comment Normal (NORMAL) 06/25/19 04:05 RBC Morphology Abnormal (NORMAL) A 06/25/19 04:05 Hypochromasia Slight A 06/25/19 04:05 ESR 105 MM/HOUR (0-20) H 06/25/19 04:05 APTT 40.2 SECONDS (22.9-36.5) H 06/25/19 04:05 PTT Comment - 06/25/19 04:05 Sample Site Left brachial 06/24/19 12:25 ABG pH 7.480 (7.35-7.45) H 06/24/19 12:25 ABG pCO2 33.0 mmHg (35.0-45.0) L 06/24/19 12:25 ABG pO2 62.0 mmHg (80.0-100.0) L 06/24/19 12:25 ABG HCO3 24.6 mmol/L (22-26) 06/24/19 12:25 ABG O2 Saturation 93.0 % (90-100) 06/24/19 12:25 ABG Base Excess 1.5 mmol/L (-2.0-2.0) 06/24/19 12:25 Oneil Test Na 06/24/19 12:25 A-a Gradient 96.0 mmHg 06/24/19 12:25 FiO2 28.0 06/24/19 12:25 Blood Gas Comments Maryse well aw 06/24/19 12:25 Sodium 140 mmol/L (136-145) 06/25/19 04:05 Corrected Sodium 141 mmol/L (136-145) 06/25/19 04:05 Potassium 4.1 mmol/L (3.5-5.1) 06/25/19 04:05 Chloride 104 mmol/L (98-107) 06/25/19 04:05 Carbon Dioxide 22.7 mmol/L (21-32) 06/25/19 04:05 BUN 13 mg/dL (7-18) 06/25/19 04:05 Creatinine 0.87 mg/dL (0.55-1.02) 06/25/19 04:05 Est GFR (MDRD) Af Amer > 60 (>60) 06/25/19 04:05 Est GFR (MDRD) Non-Af > 60 (>60) 06/25/19 04:05 Glucose 132 mg/dL (65-99) H 06/25/19 04:05 Calcium 9.2 mg/dL (8.5-10.1) 06/25/19 04:05 Corrected Calcium 10.3 mg/dL (8.5-10.1) H 06/25/19 04:05 Magnesium 2.0 mg/dL (1.7-2.9) 06/23/19 04:25 Total Bilirubin 0.20 mg/dL (0.2-1.0) 06/25/19 04:05 AST 59 Units/L (15-37) H 06/25/19 04:05 ALT 33 Units/L (12-78) 06/25/19 04:05 Alkaline Phosphatase 101 Units/L (46-116) 06/25/19 04:05 C-Reactive Protein 60.00 mg/L (0-3.0) H 06/25/19 04:05 Total Protein 6.9 g/dL (6.4-8.2) 06/25/19 04:05 Albumin 2.6 g/dL (3.4-5.0) L 06/25/19 04:05 Globulin 4.3 g/dL (2.5-4.5) 06/25/19 04:05 Albumin/Globulin Ratio 0.6 Ratio (1.1-2.1) L 06/25/19 04:05 - Plan (1) Multifocal pneumonia Status: Acute Plan: OBTAIN CHEST CT IN AM, IV SOLU-MEDROL, IV FORTAZ, IV LEVAQUIN, RESPIRATORY TREATMENTS, SUPPLEMENTAL OXYGEN, CONTINUE TO MONITOR
[2019-06-25] MEDS: PATIENT'S HOME MEDICATION PO SCH (21:04)
[2019-06-26] MEDS: NS 1/2 1000 ML IV 1,000 ML IV SCH ×3 (00:06→18:14)
[2019-06-26] MEDS: FORTAZ or TAZICEF VIAL INJ 1 G in NS 100 ML IV + SPIKE MINIBAG* 100 ML IV SCH ×3 (05:02→21:32)
[2019-06-26 05:07] LABS: BASOPHILS % (AUTO) 0.1 % (0.2-1.0); HEMATOCRIT 28.9 % (36.0-47.0); HEMOGLOBIN 9.7 g/dL (12.0-16.0); LYMPHOCYTES # (AUTO) 0.5 X10^3/uL (1.3-2.9); LYMPHOCYTES % (AUTO) 3.3 % (21.0-51.0); MEAN CORPUSCULAR HEMOGLOBIN 28.9 pg (27.0-34.0); MEAN CORPUSCULAR HGB CONC 33.5 g/dL (33.0-35.0); MEAN CORPUSCULAR VOLUME 86.4 fL (80.0-100.0); MEAN PLATELET VOLUME 7.7 fL (7.4-11.0); MONOCYTES # (AUTO) 0.5 x10^3/uL (0.3-0.8); MONOCYTES % (AUTO) 2.9 % (0.0-13.0); NEUTROPHILS # (AUTO) 14.8 x10^3/uL (2.2-4.8); NEUTROPHILS % (AUTO) 93.7 % (42.0-75.0); PLATELET COUNT 411 X10^3/uL (150.0-450.0); RED BLOOD COUNT 3.35 X10^6/uL (3.5-5.4); RED CELL DISTRIBUTION WIDTH 16.2 % (11.6-16.5)
[2019-06-26 05:10] LABS: WHITE BLOOD COUNT 15.8 X10^3/uL (3.6-10.0)
[2019-06-26 05:21] LABS: HYPOCHROMASIA SLIGHT; PLATELET MORPHOLOGY COMMENT NORMAL (NORMAL)
[2019-06-26 05:28] LABS: ALANINE AMINOTRANSFERASE 37 Units/L (12-78); ALBUMIN 2.6 g/dL (3.4-5.0); ALKALINE PHOSPHATASE 98 Units/L (46-116); ASPARTATE AMINO TRANSFERASE 69 Units/L (15-37); BLOOD UREA NITROGEN 17 mg/dL (7-18); CALCIUM 8.8 mg/dL (8.5-10.1); CARBON DIOXIDE 19.5 mmol/L (21-32); CHLORIDE 107 mmol/L (98-107); COR CA(FOR HYPOALB) 9.9 mg/dL (8.5-10.1); COR NA(FOR HYPERGLY) 142 mmol/L (136-145); CREATININE 0.94 mg/dL (0.55-1.02); SODIUM 141 mmol/L (136-145); TOTAL PROTEIN 6.8 g/dL (6.4-8.2); eGFR NON BLACK RACES > 60 (>60)
[2019-06-26 05:42] LABS: ERYTHROCYTE SEDIMENTATION RATE 109 MM/HOUR (0-20)
--- NOTE | 2019-06-26 05:55 | RAD ---
Chest AP portable Indication: Dyspnea. History of lung cancer and breast cancer Comparison: 06/24/[address] from 06/25/2019 Findings: Port-A-Cath tip is over the SVC. There is no pneumothorax. Heart size is prominent. Mild increased interstitial markings are noted. Left perihilar opacity noted. Impression: Prominent heart size and increased interstitial markings are nonspecific, suggesting respiratory bronchiolitis or developing pneumonia. Correlate clinically for any signs of CHF. Left upper lobe opacity. Pneumonia is possible. Follow-up to exclude underlying lesion. Reported By:
[2019-06-26] MEDS: XOPENEX 1.25 MG/3 ML NEBULE NEB SCH ×3 (06:10→20:11)
[2019-06-26] MEDS: MAGNESIUM SULFATE 1 GRAM/100 mL PREMIX 1 GM/100 ML BAG IV PRN ×2 (06:12→08:15)
[2019-06-26] MEDS: MICRO K EXTEN CAP 10 MEQ PO PRN (06:12)
[2019-06-26] MEDS: SYNTHROID 125 mcg TAB PO SCH (06:13)
[2019-06-26] MEDS: TORADOL 30 MG VIAL IVP SCH ×3 (06:13→22:55)
[2019-06-26] MEDS: FOLIC ACID TAB 1 MG PO SCH (08:23)
[2019-06-26] MEDS: PriLOSEC PO SCH ×2 (08:24→20:34)
[2019-06-26] MEDS: TOPROL XL PO SCH (08:24)
[2019-06-26] MEDS: ROBITUSSIN DM PO SCH ×4 (08:24→20:34)
[2019-06-26] MEDS: VSL#3 PO SCH (08:25)
[2019-06-26] MEDS: LOVENOX INJ 30 MG SYR SC SCH ×2 (08:26→20:30)
--- NOTE | 2019-06-26 08:49 | PCM.PROG ---
Progress Note - Progress Note for Day of Date of Exam: 06/25/19 - Subjective Subjective: IS BEING TREATED FOR MULTILOBE PNEUMONIA. TODAY, SHE IS ALERT AND ORIENTED, LYING IN BED ON MORNING ROUNDS. SHE CONTINUES WITH A PRODUCTIVE COUGH AND SHORTNESS OF BREATH. SHE ALSO CONTINUES WITH RIB PAIN WHEN COUGHING, BUT SHE HAS BEEN AFEBRILE THROUGHOUT THE NIGHT. ON EXAMINATION, BI LATERAL LUNGS ARE NOTED WITH SCATTERED WHEEZING AND RHONCHI THROUGHOUT. ABDOMEN IS ROUND, SOFT, AND NON-TENDER WITH NORMAL BOWEL SOUNDS NOTED IN ALL QUADRANTS. HER VITALS THIS MORNING ARE: 97.9-100-22-96%-162/79. LABS WERE OBTAINED. ABNORMAL LAB VALUES INCLUDE THE FOLLOWING: RBC 3.38, RBC 10.1, HCT 29.4, GLUCOSE 132, AST 59, CRP 60.00, ALBUMIN 2.6. A CHEST XRAY WAS OBTAINED TODAY: Diffuse ground-glass infiltrates involving the entirety of the right lung portions of the left upper and left lower lobe most likely due to multifocal respiratory bronchiolitis although multifocal pneumonia is possible. SHE IS CURRENTLY ON FORTAZ 1G IV DAILY, LEVAQUIN 750 MG IV DAILY, RESPIRATORY TREATMENTS, TORADOL, SOLU-MEDROL 60MG IV Q12H AND DIFLUCAN 200MG IV DAILY. WE WILL CONTINUE WITH CURRENT PLAN OF CARE TODAY. OTHERWISE, WE WILL FOLLOW UP WITH AM LABS AND CONTINUE TO MONITOR. - Past Medical Family Social History Past Med/Fam/Surg Hx: No changes since H&P Allergies: Allergies latex Adverse Reaction (Verified 04/07/19 12:00) - Review of Systems ROS: No change since H&P - Vital Signs and I&O's Vital Signs: Temperature 97.9 F Pulse Rate 100 Respiratory Rate 22 Blood Pressure [Right Arm] 135/77 Blood Pressure 162/79 O2 Sat by Pulse Oximetry 96 Intake and Output: Intake & Output 06/23/19 06/24/19 06/25/19 06/26/19 11:59 11:59 11:59 11:59 Intake Total 2822 / 2822 3037 / 3037 3070 / 3070 5837 / 5837 Output Total 100 / 100 301 / 301 Balance 2822 / 2822 2937 / 2937 2769 / 2769 5837 / 5837 - Physical Exam Oriented: Normal Eyes: Normal Ear: Normal Nose: Normal Throat: Normal Respiratory: Generalized, Diminished, Wheezes, Rhonchi Cardiovascular: Normal. negative: S3, S4, Murmur : Normal Auscultation: Bowel Sounds: Normal Tenderness: Normal Skin: Normal Musculoskeletal: Normal Psychiatric: Normal Mood Description: Calm Affect: Normal Speech Pattern: Clear, Appropriate - Laboratory and Diagnostics Result Diagrams: 06/26/19 03:56 06/26/19 03:56 Labs: 06/23/19 14:40 Sputum - Expectorated Sputum Sputum Culture - Final 06/23/19 14:40 Sputum - Expectorated Sputum - Final Laboratory WBC 15.8 X10^3/uL (3.6-10.0) H D 06/26/19 03:56 RBC 3.35 X10^6/uL (3.5-5.4) L 06/26/19 03:56 Hgb 9.7 g/dL (12.0-16.0) L 06/26/19 03:56 Hct 28.9 % (36.0-47.0) L 06/26/19 03:56 MCV 86.4 fL (80.0-100.0) 06/26/19 03:56 MCH 28.9 pg (27.0-34.0) 06/26/19 03:56 MCHC 33.5 g/dL (33.0-35.0) 06/26/19 03:56 RDW 16.2 % (11.6-16.5) 06/26/19 03:56 Plt Count 411 X10^3/uL (150.0-450.0) 06/26/19 03:56 Plt Count Comment Adequate (ADEQUATE) 06/26/19 03:56 MPV 7.7 fL (7.4-11.0) 06/26/19 03:56 Neut % (Auto) 93.7 % (42.0-75.0) H 06/26/19 03:56 Lymph % (Auto) 3.3 % (21.0-51.0) L 06/26/19 03:56 Schley % (Auto) 2.9 % (0.0-13.0) 06/26/19 03:56 Eos % (Auto) 0.0 % (0.9-2.9) L 06/26/19 03:56 Baso % (Auto) 0.1 % (0.2-1.0) L 06/26/19 03:56 Neut # (Auto) 14.8 x10^3/uL (2.2-4.8) H 06/26/19 03:56 Lymph # (Auto) 0.5 X10^3/uL (1.3-2.9) L 06/26/19 03:56 Schley # (Auto) 0.5 x10^3/uL (0.3-0.8) 06/26/19 03:56 Eos # (Auto) 0.0 x10^3/uL (0.0-0.2) 06/26/19 03:56 Baso # (Auto) 0.0 X10^3/uL (0.0-0.1) 06/26/19 03:56 Absolute Nucleated RBC 0.1 /100WBC 06/26/19 03:56 Total Counted 100 06/26/19 03:56 Neutrophils % (Manual) 95 % (39-76) H 06/26/19 03:56 Lymphocytes % (Manual) 4 % (13-43) L 06/26/19 03:56 Monocytes % (Manual) 1 % (4-9) L 06/26/19 03:56 Nucleated RBCs 1 06/26/19 03:56 Plt Morphology Comment Normal (NORMAL) 06/26/19 03:56 RBC Morphology Abnormal (NORMAL) A 06/26/19 03:56 Hypochromasia Slight A 06/26/19 03:56 ESR 109 MM/HOUR (0-20) H 06/26/19 03:56 APTT 40.2 SECONDS (22.9-36.5) H 06/25/19 04:05 PTT Comment - 06/25/19 04:05 Sample Site Left brachial 06/24/19 12:25 ABG pH 7.480 (7.35-7.45) H 06/24/19 12:25 ABG pCO2 33.0 mmHg (35.0-45.0) L 06/24/19 12:25 ABG pO2 62.0 mmHg (80.0-100.0) L 06/24/19 12:25 ABG HCO3 24.6 mmol/L (22-26) 06/24/19 12:25 ABG O2 Saturation 93.0 % (90-100) 06/24/19 12:25 ABG Base Excess 1.5 mmol/L (-2.0-2.0) 06/24/19 12:25 Oneil Test Na 06/24/19 12:25 A-a Gradient 96.0 mmHg 06/24/19 12:25 FiO2 28.0 06/24/19 12:25 Blood Gas Comments Maryse well aw 06/24/19 12:25 Sodium 141 mmol/L (136-145) 06/26/19 03:56 Corrected Sodium 142 mmol/L (136-145) 06/26/19 03:56 Potassium 3.6 mmol/L (3.5-5.1) 06/26/19 03:56 Chloride 107 mmol/L (98-107) 06/26/19 03:56 Carbon Dioxide 19.5 mmol/L (21-32) L 06/26/19 03:56 BUN 17 mg/dL (7-18) 06/26/19 03:56 Creatinine 0.94 mg/dL (0.55-1.02) 06/26/19 03:56 Est GFR (MDRD) Af Amer > 60 (>60) 06/26/19 03:56 Est GFR (MDRD) Non-Af > 60 (>60) 06/26/19 03:56 Glucose 122 mg/dL (65-99) H 06/26/19 03:56 Calcium 8.8 mg/dL (8.5-10.1) 06/26/19 03:56 Corrected Calcium 9.9 mg/dL (8.5-10.1) 06/26/19 03:56 Magnesium 1.9 mg/dL (1.7-2.9) 06/26/19 03:56 Total Bilirubin 0.20 mg/dL (0.2-1.0) 06/26/19 03:56 AST 69 Units/L (15-37) H 06/26/19 03:56 ALT 37 Units/L (12-78) 06/26/19 03:56 Alkaline Phosphatase 98 Units/L (46-116) 06/26/19 03:56 C-Reactive Protein 22.50 mg/L (0-3.0) H 06/26/19 03:56 Total Protein 6.8 g/dL (6.4-8.2) 06/26/19 03:56 Albumin 2.6 g/dL (3.4-5.0) L 06/26/19 03:56 Globulin 4.2 g/dL (2.5-4.5) 06/26/19 03:56 Albumin/Globulin Ratio 0.6 Ratio (1.1-2.1) L 06/26/19 03:56 - Plan (1) Multifocal pneumonia Status: Acute Plan: OBTAIN CHEST CT IN AM, IV SOLU-MEDROL, IV FORTAZ, IV LEVAQUIN, RESPIRATORY TREATMENTS, SUPPLEMENTAL OXYGEN, CONTINUE TO MONITOR
[2019-06-26] MEDS: DIFLUCAN 200 MG IV PREMIX* 200 MG/100 ML BAG IV SCH (09:31)
[2019-06-26] MEDS: LEVAQUIN PREMIX IV 750 MG 750 MG/150 ML BAG IV SCH (10:33)
[2019-06-26] MEDS: SOLU-Medrol 40 MG VIAL IVP SCH ×2 (13:16→20:35)
[2019-06-26] MEDS: DECADRON JET NEB (RESP USE) NEB SCH ×2 (14:09→20:11)
[2019-06-26] MEDS ORDERED: NS 1/2 1000 ML IV 1,000 ML IV ONE ×2 (18:09→19:00)
--- NOTE | 2019-06-26 18:44 | PCM.PROG ---
Progress Note - Progress Note for Day of Date of Exam: 06/26/19 - Subjective Subjective: IS BEING TREATED FOR MULTILOBE PNEUMONIA. TODAY, SHE IS ALERT AND ORIENTED, LYING IN BED ON MORNING ROUNDS. SHE CONTINUES WITH A PRODUCTIVE COUGH AND SHORTNESS OF BREATH. SHE HAS BEEN AFEBRILE THROUGHOUT THE NIGHT. ON EXAMINATION, BILATERAL LUNGS ARE NOTED WITH SCATTERED WHEEZING AND RHONCHI THROUGHOUT. ABDOMEN IS ROUND, SOFT, AND NON-TENDER WITH NORMAL BOWEL SOUNDS NOTED IN ALL QUADRANTS. HER VITALS THIS MORNING ARE: 97.9-100-22-96%-162/79. LABS WERE OBTAINED. ABNORMAL LAB VALUES INCLUDE THE FOLLOWING: WBC 15.8, RBC 3.35, HGB 9.7, HCT 28.9, CARBON DIOXIDE 19.5, GLUCOSE 122, AST 69, CRP 22.50, ALBUMIN 2.6. A CHEST XRAY WAS OBTAINED TODAY AND REVEALED: Prominent heart size and increased interstitial markings are nonspecific, suggesting respiratory bronchiolitis or developing pneumonia. Correlate clinically for any signs of CHF. Left upper lobe opacity. Pneumonia is possible. Follow-up to exclude underlying lesion. SHE IS CURRENTLY ON FORTAZ 1G IV DAILY, LEVAQUIN 750 MG IV DAILY, RESPIRATORY TREATMENTS, TORADOL, SOLU-MEDROL 60MG IV Q12H AND DIFLUCAN 200MG IV DAILY. WE WILL CONTINUE WITH CURRENT PLAN OF CARE TODAY AND OBTAIN AN ECHO. OTHERWISE, WE WILL FOLLOW UP WITH AM LABS AND CONTINUE TO MONITOR. - Past Medical Family Social History Past Med/Fam/Surg Hx: No changes since H&P Allergies: Allergies latex Adverse Reaction (Verified 04/07/19 12:00) - Review of Systems ROS: No change since H&P - Vital Signs and I&O's Vital Signs: Temperature 97.0 F Pulse Rate 80 Respiratory Rate 16 Blood Pressure [Right Arm] 135/77 Blood Pressure 157/87 O2 Sat by Pulse Oximetry 98 Intake and Output: Intake & Output 06/24/19 06/25/19 06/26/19 06/27/19 11:59 11:59 11:59 11:59 Intake Total 3037 / 3037 3070 / 3070 5837 / 5837 1510 / 1510 Output Total 100 / 100 301 / 301 Balance 2937 / 2937 2769 / 2769 5837 / 5837 1510 / 1510 - Physical Exam Oriented: Normal Eyes: Normal Ear: Normal Nose: Normal Throat: Normal Respiratory: Generalized, Diminished, Wheezes, Rhonchi Cardiovascular: Normal. negative: S3, S4, Murmur : Normal Auscultation: Bowel Sounds: Normal Palpation: Normal Tenderness: Normal Skin: Normal Musculoskeletal: Normal Psychiatric: Normal Mood Description: Calm Affect: Normal Speech Pattern: Clear, Appropriate - Laboratory and Diagnostics Result Diagrams: 06/26/19 03:56 06/26/19 03:56 Labs: 06/23/19 14:40 Sputum - Expectorated Sputum Sputum Culture - Final 06/23/19 14:40 Sputum - Expectorated Sputum - Final Laboratory WBC 15.8 X10^3/uL (3.6-10.0) H D 06/26/19 03:56 RBC 3.35 X10^6/uL (3.5-5.4) L 06/26/19 03:56 Hgb 9.7 g/dL (12.0-16.0) L 06/26/19 03:56 Hct 28.9 % (36.0-47.0) L 06/26/19 03:56 MCV 86.4 fL (80.0-100.0) 06/26/19 03:56 MCH 28.9 pg (27.0-34.0) 06/26/19 03:56 MCHC 33.5 g/dL (33.0-35.0) 06/26/19 03:56 RDW 16.2 % (11.6-16.5) 06/26/19 03:56 Plt Count 411 X10^3/uL (150.0-450.0) 06/26/19 03:56 Plt Count Comment Adequate (ADEQUATE) 06/26/19 03:56 MPV 7.7 fL (7.4-11.0) 06/26/19 03:56 Neut % (Auto) 93.7 % (42.0-75.0) H 06/26/19 03:56 Lymph % (Auto) 3.3 % (21.0-51.0) L 06/26/19 03:56 Mayes % (Auto) 2.9 % (0.0-13.0) 06/26/19 03:56 Eos % (Auto) 0.0 % (0.9-2.9) L 06/26/19 03:56 Baso % (Auto) 0.1 % (0.2-1.0) L 06/26/19 03:56 Neut # (Auto) 14.8 x10^3/uL (2.2-4.8) H 06/26/19 03:56 Lymph # (Auto) 0.5 X10^3/uL (1.3-2.9) L 06/26/19 03:56 Mayes # (Auto) 0.5 x10^3/uL (0.3-0.8) 06/26/19 03:56 Eos # (Auto) 0.0 x10^3/uL (0.0-0.2) 06/26/19 03:56 Baso # (Auto) 0.0 X10^3/uL (0.0-0.1) 06/26/19 03:56 Absolute Nucleated RBC 0.1 /100WBC 06/26/19 03:56 Total Counted 100 06/26/19 03:56 Neutrophils % (Manual) 95 % (39-76) H 06/26/19 03:56 Lymphocytes % (Manual) 4 % (13-43) L 06/26/19 03:56 Monocytes % (Manual) 1 % (4-9) L 06/26/19 03:56 Nucleated RBCs 1 06/26/19 03:56 Plt Morphology Comment Normal (NORMAL) 06/26/19 03:56 RBC Morphology Abnormal (NORMAL) A 06/26/19 03:56 Hypochromasia Slight A 06/26/19 03:56 ESR 109 MM/HOUR (0-20) H 06/26/19 03:56 APTT 40.2 SECONDS (22.9-36.5) H 06/25/19 04:05 PTT Comment - 06/25/19 04:05 Sample Site Left brachial 06/24/19 12:25 ABG pH 7.480 (7.35-7.45) H 06/24/19 12:25 ABG pCO2 33.0 mmHg (35.0-45.0) L 06/24/19 12:25 ABG pO2 62.0 mmHg (80.0-100.0) L 06/24/19 12:25 ABG HCO3 24.6 mmol/L (22-26) 06/24/19 12:25 ABG O2 Saturation 93.0 % (90-100) 06/24/19 12:25 ABG Base Excess 1.5 mmol/L (-2.0-2.0) 06/24/19 12:25 Oneil Test Na 06/24/19 12:25 A-a Gradient 96.0 mmHg 06/24/19 12:25 FiO2 28.0 06/24/19 12:25 Blood Gas Comments Maryse well aw 06/24/19 12:25 Sodium 141 mmol/L (136-145) 06/26/19 03:56 Corrected Sodium 142 mmol/L (136-145) 06/26/19 03:56 Potassium 3.6 mmol/L (3.5-5.1) 06/26/19 03:56 Chloride 107 mmol/L (98-107) 06/26/19 03:56 Carbon Dioxide 19.5 mmol/L (21-32) L 06/26/19 03:56 BUN 17 mg/dL (7-18) 06/26/19 03:56 Creatinine 0.94 mg/dL (0.55-1.02) 06/26/19 03:56 Est GFR (MDRD) Af Amer > 60 (>60) 06/26/19 03:56 Est GFR (MDRD) Non-Af > 60 (>60) 06/26/19 03:56 Glucose 122 mg/dL (65-99) H 06/26/19 03:56 Calcium 8.8 mg/dL (8.5-10.1) 06/26/19 03:56 Corrected Calcium 9.9 mg/dL (8.5-10.1) 06/26/19 03:56 Magnesium 1.9 mg/dL (1.7-2.9) 06/26/19 03:56 Total Bilirubin 0.20 mg/dL (0.2-1.0) 06/26/19 03:56 AST 69 Units/L (15-37) H 06/26/19 03:56 ALT 37 Units/L (12-78) 06/26/19 03:56 Alkaline Phosphatase 98 Units/L (46-116) 06/26/19 03:56 C-Reactive Protein 22.50 mg/L (0-3.0) H 06/26/19 03:56 Total Protein 6.8 g/dL (6.4-8.2) 06/26/19 03:56 Albumin 2.6 g/dL (3.4-5.0) L 06/26/19 03:56 Globulin 4.2 g/dL (2.5-4.5) 06/26/19 03:56 Albumin/Globulin Ratio 0.6 Ratio (1.1-2.1) L 06/26/19 03:56 - Plan (1) Multifocal pneumonia Status: Acute Plan: OBTAIN CHEST CT IN AM, IV SOLU-MEDROL, IV FORTAZ, IV LEVAQUIN, RESPIRATORY TREATMENTS, SUPPLEMENTAL OXYGEN, CONTINUE TO MONITOR
[2019-06-26] MEDS: PATIENT'S HOME MEDICATION PO SCH (20:34)
[2019-06-27] MEDS: NS 1/2 1000 ML IV 1,000 ML IV SCH ×2 (04:30→18:33)
[2019-06-27] MEDS: XOPENEX 1.25 MG/3 ML NEBULE NEB SCH ×3 (05:00→20:05)
[2019-06-27] MEDS: FORTAZ or TAZICEF VIAL INJ 1 G in NS 100 ML IV + SPIKE MINIBAG* 100 ML IV SCH ×3 (05:17→21:01)
[2019-06-27 05:24] LABS: BASOPHILS % (AUTO) 0.1 % (0.2-1.0); HEMATOCRIT 27.1 % (36.0-47.0); HEMOGLOBIN 9.3 g/dL (12.0-16.0); LYMPHOCYTES # (AUTO) 0.4 X10^3/uL (1.3-2.9); LYMPHOCYTES % (AUTO) 2.8 % (21.0-51.0); MEAN CORPUSCULAR HEMOGLOBIN 29.5 pg (27.0-34.0); MEAN CORPUSCULAR HGB CONC 34.3 g/dL (33.0-35.0); MEAN CORPUSCULAR VOLUME 85.9 fL (80.0-100.0); MEAN PLATELET VOLUME 7.7 fL (7.4-11.0); MONOCYTES # (AUTO) 0.5 x10^3/uL (0.3-0.8); MONOCYTES % (AUTO) 3.3 % (0.0-13.0); NEUTROPHILS # (AUTO) 14.1 x10^3/uL (2.2-4.8); NEUTROPHILS % (AUTO) 93.8 % (42.0-75.0); PLATELET COUNT 414 X10^3/uL (150.0-450.0); RED BLOOD COUNT 3.16 X10^6/uL (3.5-5.4)
[2019-06-27 05:48] LABS: ALANINE AMINOTRANSFERASE 38 Units/L (12-78); ALBUMIN 2.4 g/dL (3.4-5.0); ALKALINE PHOSPHATASE 92 Units/L (46-116); ASPARTATE AMINO TRANSFERASE 69 Units/L (15-37); BLOOD UREA NITROGEN 18 mg/dL (7-18); CALCIUM 8.5 mg/dL (8.5-10.1); CARBON DIOXIDE 21.1 mmol/L (21-32); CHLORIDE 109 mmol/L (98-107); COR CA(FOR HYPOALB) 9.8 mg/dL (8.5-10.1); CREATININE 0.87 mg/dL (0.55-1.02); ERYTHROCYTE SEDIMENTATION RATE 97 MM/HOUR (0-20); MAGNESIUM 2.2 mg/dL (1.7-2.9); SODIUM 142 mmol/L (136-145); TOTAL PROTEIN 6.3 g/dL (6.4-8.2); eGFR NON BLACK RACES > 60 (>60)
[2019-06-27 05:56] LABS: PLATELET MORPHOLOGY COMMENT NORMAL (NORMAL)
--- NOTE | 2019-06-27 05:57 | RAD ---
Chest AP portable Indication: Dyspnea Comparison: 06/26/2019 Findings: Port-A-Cath tip is over the SVC. There is no pneumothorax. Monitoring leads obscure minimal detail. Heart size is within normal limits for technique. Mild increased interstitial markings noted. Vague increased left upper lung opacity noted. Impression: Mild increased interstitial markings when compared to the prior. Vague left upper lobe opacity. Developing CHF versus multifocal pneumonia. Correlate clinically and follow-up to resolution to exclude underlying lesion Reported By:
[2019-06-27] MEDS: SYNTHROID 125 mcg TAB PO SCH (06:02)
[2019-06-27] MEDS: TORADOL 30 MG VIAL IVP SCH ×3 (06:02→22:30)
[2019-06-27] MEDS: LOVENOX INJ 30 MG SYR SC SCH ×2 (08:35→20:37)
[2019-06-27] MEDS: SOLU-Medrol 40 MG VIAL IVP SCH ×3 (08:38→21:01)
[2019-06-27] MEDS: ROBITUSSIN DM PO SCH ×4 (08:38→20:28)
[2019-06-27] MEDS: VSL#3 PO SCH (08:40)
[2019-06-27] MEDS: PriLOSEC PO SCH ×2 (08:40→20:28)
[2019-06-27] MEDS: FOLIC ACID TAB 1 MG PO SCH (08:41)
[2019-06-27] MEDS: TOPROL XL PO SCH (08:41)
[2019-06-27] MEDS: DIFLUCAN 200 MG IV PREMIX* 200 MG/100 ML BAG IV SCH (08:42)
[2019-06-27] MEDS: DECADRON JET NEB (RESP USE) NEB SCH ×2 (08:42→20:05)
[2019-06-27] MEDS: LEVAQUIN PREMIX IV 750 MG 750 MG/150 ML BAG IV SCH (10:05)
[2019-06-27] MEDS ORDERED: DUONEB 0.5 MG/3 MG NEB SCH (10:45)
[2019-06-27] MEDS ORDERED: SOLU-Medrol 40 MG VIAL IVP SCH (11:00)
[2019-06-27] MEDS: THEO-DUR TAB 200 MG PO SCH ×2 (11:08→20:28)
[2019-06-27] MEDS: Atrovent NEB TX 0.02% NEB SCH ×2 (14:06→20:05)
--- NOTE | 2019-06-27 19:48 | PCM.PROG ---
Progress Note - Progress Note for Day of Date of Exam: 06/27/19 - Subjective Subjective: IS BEING TREATED FOR MULTILOBE PNEUMONIA. TODAY, SHE IS ALERT AND ORIENTED, LYING IN BED ON MORNING ROUNDS. SHE CONTINUES WITH A PRODUCTIVE COUGH AND SHORTNESS OF BREATH. SHE DENIES IMPROVEMENT SINCE YESTERDAY. ON EXAMINATION, BILATERAL LUNGS ARE NOTED WITH SCATTERED WHEEZING AND RHONCHI THROUGHOUT. ABDOMEN IS ROUND, SOFT, AND NON-TENDER WITH NORMAL BOWEL SOUNDS NOTED IN ALL QUADRANTS. HER VITALS THIS MORNING ARE: 97.5-98-23-99%-165/81. LABS WERE OBTAINED. ABNORMAL LAB VALUES INCLUDE THE FOLLOWING: WBC 15.0, RBC 3.16, HGB 9.3, HCT 27.1, CHLORIDE 109, GLUCOSE 108, TOTAL BILI 0.10, AST 69, CRP 8.90, TOTAL PROTEIN 6.3, ALBUMIN 2.4. A CHEST XRAY WAS OBTAINED TODAY AND REVEALED: Mild increased interstitial markings when compared to the prior. Vague left upper lobe opacity. Developing CHF versus multifocal pneumonia. Correlate clinically and follow-up to resolution to exclude underlying lesion. SHE IS CURRENTLY ON FORTAZ 1G IV DAILY, LEVAQUIN 750 MG IV DAILY, RESPIRATORY TREATMENTS, TORADOL, SOLU-MEDROL 60MG IV Q12H AND DIFLUCAN 200MG IV DAILY. TODAY, WE WILL INCREASED SOLU-MEDROL TO 80MG IV Q8H, EDENILSON-DUR 200MG PO BID. OTHERWISE, WE WILL CONTINUE WITH CURRENT PLAN OF CARE TODAY. WE WILL FOLLOW UP WITH AM LABS AND CONTINUE TO MONITOR. - Past Medical Family Social History Past Med/Fam/Surg Hx: No changes since H&P Allergies: Allergies latex Adverse Reaction (Verified 04/07/19 12:00) - Review of Systems ROS: No change since H&P - Vital Signs and I&O's Vital Signs: Temperature 97.8 F Pulse Rate 87 Respiratory Rate 20 Blood Pressure [Right Arm] 135/77 Blood Pressure 174/88 O2 Sat by Pulse Oximetry 97 Intake and Output: Intake & Output 06/25/19 06/26/19 06/27/19 06/28/19 11:59 11:59 11:59 11:59 Intake Total 3070 / 3070 5837 / 5837 3560 / 3560 1455 / 1455 Output Total 301 / 301 Balance 2769 / 2769 5837 / 5837 3559 / 3559 1455 / 1455 - Physical Exam Oriented: Normal Eyes: Normal Ear: Normal Nose: Normal Throat: Normal Respiratory: Generalized, Diminished, Wheezes, Rhonchi Cardiovascular: Normal. negative: S3, S4, Murmur : Normal Auscultation: Bowel Sounds: Normal Palpation: Normal Tenderness: Normal Skin: Normal Musculoskeletal: Normal Psychiatric: Normal Mood Description: Calm Affect: Normal Speech Pattern: Clear, Appropriate - Laboratory and Diagnostics Result Diagrams: 06/27/19 03:53 06/27/19 03:53 Labs: 06/23/19 14:40 Sputum - Expectorated Sputum Sputum Culture - Final 06/23/19 14:40 Sputum - Expectorated Sputum - Final Laboratory WBC 15.0 X10^3/uL (3.6-10.0) H 06/27/19 03:53 RBC 3.16 X10^6/uL (3.5-5.4) L 06/27/19 03:53 Hgb 9.3 g/dL (12.0-16.0) L 06/27/19 03:53 Hct 27.1 % (36.0-47.0) L 06/27/19 03:53 MCV 85.9 fL (80.0-100.0) 06/27/19 03:53 MCH 29.5 pg (27.0-34.0) 06/27/19 03:53 MCHC 34.3 g/dL (33.0-35.0) 06/27/19 03:53 RDW 16.0 % (11.6-16.5) 06/27/19 03:53 Plt Count 414 X10^3/uL (150.0-450.0) 06/27/19 03:53 Plt Count Comment Adequate (ADEQUATE) 06/27/19 03:53 MPV 7.7 fL (7.4-11.0) 06/27/19 03:53 Neut % (Auto) 93.8 % (42.0-75.0) H 06/27/19 03:53 Lymph % (Auto) 2.8 % (21.0-51.0) L 06/27/19 03:53 [place] % (Auto) 3.3 % (0.0-13.0) 06/27/19 03:53 Eos % (Auto) 0.0 % (0.9-2.9) L 06/27/19 03:53 Baso % (Auto) 0.1 % (0.2-1.0) L 06/27/19 03:53 Neut # (Auto) 14.1 x10^3/uL (2.2-4.8) H 06/27/19 03:53 Lymph # (Auto) 0.4 X10^3/uL (1.3-2.9) L 06/27/19 03:53 [place] # (Auto) 0.5 x10^3/uL (0.3-0.8) 06/27/19 03:53 Eos # (Auto) 0.0 x10^3/uL (0.0-0.2) 06/27/19 03:53 Baso # (Auto) 0.0 X10^3/uL (0.0-0.1) 06/27/19 03:53 Absolute Nucleated RBC 0.0 /100WBC 06/27/19 03:53 Total Counted 100 06/27/19 03:53 Neutrophils % (Manual) 93 % (39-76) H 06/27/19 03:53 Lymphocytes % (Manual) 3 % (13-43) L 06/27/19 03:53 Monocytes % (Manual) 4 % (4-9) 06/27/19 03:53 Nucleated RBCs 1 06/26/19 03:56 Plt Morphology Comment Normal (NORMAL) 06/27/19 03:53 RBC Morphology Normal (NORMAL) 06/27/19 03:53 Hypochromasia Slight A 06/26/19 03:56 ESR 97 MM/HOUR (0-20) H 06/27/19 03:53 APTT 40.2 SECONDS (22.9-36.5) H 06/25/19 04:05 PTT Comment - 06/25/19 04:05 Sample Site Left brachial 06/24/19 12:25 ABG pH 7.480 (7.35-7.45) H 06/24/19 12:25 ABG pCO2 33.0 mmHg (35.0-45.0) L 06/24/19 12:25 ABG pO2 62.0 mmHg (80.0-100.0) L 06/24/19 12:25 ABG HCO3 24.6 mmol/L (22-26) 06/24/19 12:25 ABG O2 Saturation 93.0 % (90-100) 06/24/19 12:25 ABG Base Excess 1.5 mmol/L (-2.0-2.0) 06/24/19 12:25 Oneil Test Na 06/24/19 12:25 A-a Gradient 96.0 mmHg 06/24/19 12:25 FiO2 28.0 06/24/19 12:25 Blood Gas Comments Maryse well aw 06/24/19 12:25 Sodium 142 mmol/L (136-145) 06/27/19 03:53 Corrected Sodium TNP 06/27/19 03:53 Potassium 4.0 mmol/L (3.5-5.1) 06/27/19 03:53 Chloride 109 mmol/L (98-107) H 06/27/19 03:53 Carbon Dioxide 21.1 mmol/L (21-32) 06/27/19 03:53 BUN 18 mg/dL (7-18) 06/27/19 03:53 Creatinine 0.87 mg/dL (0.55-1.02) 06/27/19 03:53 Est GFR (MDRD) Af Amer > 60 (>60) 06/27/19 03:53 Est GFR (MDRD) Non-Af > 60 (>60) 06/27/19 03:53 Glucose 108 mg/dL (65-99) H 06/27/19 03:53 Calcium 8.5 mg/dL (8.5-10.1) 06/27/19 03:53 Corrected Calcium 9.8 mg/dL (8.5-10.1) 06/27/19 03:53 Magnesium 2.2 mg/dL (1.7-2.9) 06/27/19 03:53 Total Bilirubin 0.10 mg/dL (0.2-1.0) L 06/27/19 03:53 AST 69 Units/L (15-37) H 06/27/19 03:53 ALT 38 Units/L (12-78) 06/27/19 03:53 Alkaline Phosphatase 92 Units/L (46-116) 06/27/19 03:53 C-Reactive Protein 8.90 mg/L (0-3.0) H 06/27/19 03:53 Total Protein 6.3 g/dL (6.4-8.2) L 06/27/19 03:53 Albumin 2.4 g/dL (3.4-5.0) L 06/27/19 03:53 Globulin 3.9 g/dL (2.5-4.5) 06/27/19 03:53 Albumin/Globulin Ratio 0.6 Ratio (1.1-2.1) L 06/27/19 03:53 - Plan (1) Multifocal pneumonia Status: Acute Plan: EDENILSON-DUR 200MG PO BID, IV SOLU-MEDROL, IV FORTAZ, IV LEVAQUIN, RESPIRATORY TREATMENTS, SUPPLEMENTAL OXYGEN, CONTINUE TO MONITOR
[2019-06-27] MEDS ORDERED: NS 1/2 1000 ML IV 1,000 ML IV ONE (20:14)
[2019-06-27] MEDS: PATIENT'S HOME MEDICATION PO SCH (20:28)
[2019-06-28 04:52] LABS: BASOPHILS % (AUTO) 0 % (0.2-1.0); HEMATOCRIT 28.6 % (36.0-47.0); HEMOGLOBIN 9.6 g/dL (12.0-16.0); LYMPHOCYTES # (AUTO) 0.3 X10^3/uL (1.3-2.9); LYMPHOCYTES % (AUTO) 1.9 % (21.0-51.0); MEAN CORPUSCULAR HEMOGLOBIN 29.3 pg (27.0-34.0); MEAN CORPUSCULAR HGB CONC 33.6 g/dL (33.0-35.0); MEAN CORPUSCULAR VOLUME 87.2 fL (80.0-100.0); MEAN PLATELET VOLUME 7.4 fL (7.4-11.0); MONOCYTES # (AUTO) 0.5 x10^3/uL (0.3-0.8); MONOCYTES % (AUTO) 3.1 % (0.0-13.0); NEUTROPHILS # (AUTO) 14.4 x10^3/uL (2.2-4.8); PLATELET COUNT 412 X10^3/uL (150.0-450.0); RED BLOOD COUNT 3.28 X10^6/uL (3.5-5.4); RED CELL DISTRIBUTION WIDTH 16.2 % (11.6-16.5); WHITE BLOOD COUNT 15.1 X10^3/uL (3.6-10.0)
[2019-06-28] MEDS: Atrovent NEB TX 0.02% NEB SCH (05:01)
[2019-06-28] MEDS: XOPENEX 1.25 MG/3 ML NEBULE NEB SCH (05:01)
[2019-06-28 05:02] LABS: ALANINE AMINOTRANSFERASE 40 Units/L (12-78); ALBUMIN 2.5 g/dL (3.4-5.0); ALKALINE PHOSPHATASE 92 Units/L (46-116); ASPARTATE AMINO TRANSFERASE 61 Units/L (15-37); BLOOD UREA NITROGEN 16 mg/dL (7-18); CALCIUM 8.5 mg/dL (8.5-10.1); CARBON DIOXIDE 23.2 mmol/L (21-32); CHLORIDE 108 mmol/L (98-107); COR CA(FOR HYPOALB) 9.7 mg/dL (8.5-10.1); COR NA(FOR HYPERGLY) 143 mmol/L (136-145); CREATININE 0.86 mg/dL (0.55-1.02); SODIUM 143 mmol/L (136-145); TOTAL PROTEIN 6.3 g/dL (6.4-8.2); eGFR NON BLACK RACES > 60 (>60)
[2019-06-28] MEDS: SOLU-Medrol 40 MG VIAL IVP SCH ×2 (05:12→13:56)
[2019-06-28] MEDS: FORTAZ or TAZICEF VIAL INJ 1 G in NS 100 ML IV + SPIKE MINIBAG* 100 ML IV SCH ×2 (05:12→15:44)
[2019-06-28 05:34] LABS: PLATELET MORPHOLOGY COMMENT NORMAL (NORMAL)
[2019-06-28] MEDS: TORADOL 30 MG VIAL IVP SCH (06:04)
[2019-06-28] MEDS: SYNTHROID 125 mcg TAB PO SCH (06:04)
--- NOTE | 2019-06-28 06:26 | RAD ---
HISTORY: Shortness of breath Study: Chest AP portable Comparison: 06/27/2019 Findings: There is a port present on the right. The heart is within normal limits in size. The inga are normal. The lungs are mildly hypo inflated but free of acute infiltrates. No pleural effusions are identified. The bony thorax is unremarkable. IMPRESSION: Lungs mildly hypo inflated but clear Reported By:
[2019-06-28] MEDS: DECADRON JET NEB (RESP USE) NEB SCH (08:45)
[2019-06-28] MEDS: LOVENOX INJ 30 MG SYR SC SCH ×2 (08:59→09:18)
[2019-06-28] MEDS: ROBITUSSIN DM PO SCH ×2 (09:00→13:56)
[2019-06-28] MEDS: TOPROL XL PO SCH (09:00)
[2019-06-28] MEDS: DIFLUCAN 200 MG IV PREMIX* 200 MG/100 ML BAG IV SCH (09:01)
[2019-06-28] MEDS: THEO-DUR TAB 200 MG PO SCH (09:01)
[2019-06-28] MEDS: LEVAQUIN PREMIX IV 750 MG 750 MG/150 ML BAG IV SCH (09:02)
[2019-06-28] MEDS: VSL#3 PO SCH (09:02)
[2019-06-28] MEDS: FOLIC ACID TAB 1 MG PO SCH (09:02)
[2019-06-28] MEDS: PriLOSEC PO SCH (09:02)
[2019-06-28 13:58] VITALS: BP 163/88
== END 2019-06-28 14:15 | disposition home or self-care (01) | DRG 195 ==
LOC: ICU 11:48
PROVIDERS: ADMIT Internal Medicine; ATTEND Internal Medicine
DX: R06.02 Shortness of breath; R79.1 Abnormal coagulation profile; R79.82 Elevated C-reactive protein (CRP); D72.828 Other elevated white blood cell count; J18.9 Pneumonia, unspecified organism
CPT/HCPCS: 36415; 36600; 71010; 71045; 71260; 80053; 82803; 83735; 85025; 85652; 85730; 86140; 87070; 87205; 93306; 94640; A4222; J0713; J1450; J1650; J1885; J1956; J2920; J3475; J3490; J7050; J7512; J7620; J7626; J7644

== ENCOUNTER 2023-12-12 08:27 | Observation (INO) ==
[2023-12-12] MEDS: NOZIN NASAL SANITIZER TP ONE (10:06)
[2023-12-12] MEDS: LR 1,000 ML IV 1,000 ML IV ONE (10:25)
[2023-12-12] MEDS ORDERED: BARHEMSYS INJ IVP PRN (11:07)
[2023-12-12] MEDS ORDERED: ZOFRAN INJ 4 MG VIAL IVP PRN (11:07)
[2023-12-12] MEDS ORDERED: BENADRYL INJ 50 MG VIAL IVP PRN (11:07)
[2023-12-12] MEDS: NS 100 ML IV 100 ML ONE (11:17)
[2023-12-12] MEDS: ANCEF VIAL 1 GRAM ONE (11:17)
[2023-12-12] MEDS: DIPRIVAN VIAL 20 ML ONE (11:30)
[2023-12-12] MEDS: PHENERGAN INJ 25 MG IM ONE (11:30)
[2023-12-12] MEDS: MAGNESIUM SULFATE 50% INJ VIAL ONE (11:30)
[2023-12-12] MEDS ORDERED: SUPRANE ONE (11:30)
[2023-12-12] MEDS: PRECEDEX INJ VIAL ONE (11:30)
[2023-12-12] MEDS: VERSED ONE (11:30)
[2023-12-12] MEDS: ZEMURON 100 MG VIAL ONE (11:30)
[2023-12-12] MEDS: DECADRON INJ ONE (11:30)
[2023-12-12] MEDS: ZOFRAN INJ 4 MG VIAL ONE (11:30)
[2023-12-12] MEDS: PEPCID 20 MG VIAL ONE (11:30)
[2023-12-12] MEDS: DILAUDID INJ ONE (11:30)
[2023-12-12] MEDS: NEO-SYNEPHRINE INJ ONE (11:44)
[2023-12-12] MEDS: NS 1,000 ML IV 1,000 ML ONE (12:24)
[2023-12-12] MEDS: BACTROBAN TOPICAL OINT ONE (12:53)
[2023-12-12] MEDS: BRIDION ONE (12:59)
[2023-12-12] MEDS: DILAUDID INJ IVP PRN ×2 (13:28→14:29)
[2023-12-12] MEDS: D5 1/2 NS 1,000 ML 1,000 ML IV SCH (13:53)
[2023-12-12] MEDS ORDERED: ANCEF VIAL 1 GRAM IV SCH (14:00)
[2023-12-12] MEDS: ANCEF VIAL 1 GRAM 1 G in NS 100 ML IV 100 ML IV SCH (14:05)
[2023-12-12 15:22] LABS: BASOPHILS % (AUTO) 0.2 % (0.2-1.0); EOSINOPHILS % (AUTO) 0.3 % (0.9-2.9); HEMATOCRIT 30.6 % (36.0-47.0); HEMOGLOBIN 10.2 g/dL (12.0-16.0); LYMPHOCYTES # (AUTO) 0.8 X10^3/uL (1.3-2.9); LYMPHOCYTES % (AUTO) 7.7 % (21.0-51.0); MEAN CORPUSCULAR HEMOGLOBIN 28.9 pg (27.0-34.0); MEAN CORPUSCULAR HGB CONC 33.3 g/dL (33.0-35.0); MEAN CORPUSCULAR VOLUME 86.9 fL (80.0-100.0); MEAN PLATELET VOLUME 6.8 fL (7.4-11.0); MONOCYTES # (AUTO) 0.4 x10^3/uL (0.3-0.8); MONOCYTES % (AUTO) 3.3 % (0.0-13.0); NEUTROPHILS # (AUTO) 9.7 x10^3/uL (2.2-4.8); NEUTROPHILS % (AUTO) 88.5 % (42.0-75.0); PLATELET COUNT 342 X10^3/uL (150.0-450.0); RED BLOOD COUNT 3.53 X10^6/uL (3.5-5.4); RED CELL DISTRIBUTION WIDTH 14.8 % (11.6-16.5)
[2023-12-12 15:34] LABS: ALANINE AMINOTRANSFERASE 43 Units/L (12-78); ALBUMIN 2.5 g/dL (3.4-5.0); ALKALINE PHOSPHATASE 87 Units/L (46-116); ASPARTATE AMINO TRANSFERASE 38 Units/L (15-37); BLOOD UREA NITROGEN 23 mg/dL (7-18); CALCIUM 8.6 mg/dL (8.5-10.1); CARBON DIOXIDE 26.4 mmol/L (21-32); CHLORIDE 107 mmol/L (98-107); COR CA(FOR HYPOALB) 9.8 mg/dL (8.5-10.1); COR NA(FOR HYPERGLY) 141 mmol/L (136-145); CREATININE 0.81 mg/dL (0.55-1.02); GLUCOSE 133 mg/dL (65-99); POTASSIUM 4.3 mmol/L (3.5-5.1); SODIUM 140 mmol/L (136-145); TOTAL PROTEIN 7.2 g/dL (6.4-8.2); eGFR NON BLACK RACES > 60 (>60)
[2023-12-12] MEDS: MORPHINE SULFATE INJ 4 MG IVP PRN (20:31)
[2023-12-12] MEDS: ZOFRAN INJ 4 MG VIAL IVP PRN (21:14)
[2023-12-13 07:43] LABS: MEAN CORPUSCULAR HEMOGLOBIN 28.9 pg (27.0-34.0)
[2023-12-13] MEDS: NORCO 5/325 MG TAB PO PRN (07:44)
[2023-12-13 07:49] LABS: BASOPHILS % (AUTO) 0.2 % (0.2-1.0); EOSINOPHILS # (AUTO) 0.1 x10^3/uL (0.0-0.2); HEMATOCRIT 27.2 % (36.0-47.0); LYMPHOCYTES # (AUTO) 1.9 X10^3/uL (1.3-2.9); LYMPHOCYTES % (AUTO) 17.8 % (21.0-51.0); MEAN CORPUSCULAR HGB CONC 33.3 g/dL (33.0-35.0); MEAN CORPUSCULAR VOLUME 86.8 fL (80.0-100.0); MEAN PLATELET VOLUME 6.6 fL (7.4-11.0); MONOCYTES # (AUTO) 1.1 x10^3/uL (0.3-0.8); NEUTROPHILS # (AUTO) 7.6 x10^3/uL (2.2-4.8); PLATELET COUNT 355 X10^3/uL (150.0-450.0); RED BLOOD COUNT 3.13 X10^6/uL (3.5-5.4); RED CELL DISTRIBUTION WIDTH 14.6 % (11.6-16.5); WHITE BLOOD COUNT 10.7 X10^3/uL (3.6-10.0)
[2023-12-13 07:57] LABS: ALANINE AMINOTRANSFERASE 44 Units/L (12-78); ALBUMIN 2.3 g/dL (3.4-5.0); ALKALINE PHOSPHATASE 79 Units/L (46-116); ASPARTATE AMINO TRANSFERASE 39 Units/L (15-37); BLOOD UREA NITROGEN 12 mg/dL (7-18); CALCIUM 8.1 mg/dL (8.5-10.1); CARBON DIOXIDE 26.9 mmol/L (21-32); CHLORIDE 105 mmol/L (98-107); COR CA(FOR HYPOALB) 9.5 mg/dL (8.5-10.1); COR NA(FOR HYPERGLY) 140 mmol/L (136-145); CREATININE 0.71 mg/dL (0.55-1.02); GLUCOSE 137 mg/dL (65-99); POTASSIUM 4.3 mmol/L (3.5-5.1); SODIUM 139 mmol/L (136-145); TOTAL PROTEIN 6.8 g/dL (6.4-8.2); eGFR NON BLACK RACES > 60 (>60)
--- NOTE | 2023-12-13 08:33 | DR.PROGNOT ---
HOSPITAL PROGRESS NOTE Progress Note for Day of: Progress Note Date: 12/13/23 Chief Complaint Chief Complaint: Complaint of right upper quadrant and epigastric pain with minimal relief using Dilaudid. Moderate drainage in JASEN. White count 10.7, hemoglobin 9, bilirubin 0.2, liver function test are normal. Abdomen is soft with hypoactive bowel sounds. Will advance diet. Past Medical Family Social History Allergies: Allergies latex Adverse Reaction (Verified 12/06/23 09:00) Vital Signs Vital Signs: Vital Signs Temperature 98.7 F Pulse Rate [Left Radial] 95 Pulse Rate [Left Radial] 102 Respiratory Rate 20 Respiratory Rate 21 Respiratory Rate 20 Respiratory Rate 20 Respiratory Rate 20 Respiratory Rate 20 Respiratory Rate 20 Blood Pressure [Right Arm] 115/70 Blood Pressure [Right Arm] 119/70 O2 Sat by Pulse Oximetry 95 O2 Sat by Pulse Oximetry 96 Physical Exam Oriented: Normal Eyes: Normal Respiratory: Normal Cardiovascular: Normal GI:Auscultation: Decreased GI:Palpation: Normal GI: Tenderness: RUQ, Epigastric and Other (Moderate epigastric and right upper quadrant tenderness) Mood Description: Calm and Appropriate Speech Pattern: Clear Laboratory and Diagnostics 12/13/23 07:24 12/13/23 07:24 Labs: Laboratory WBC 10.7 X10^3/uL (3.6-10.0) H 12/13/23 07:24 RBC 3.13 X10^6/uL (3.5-5.4) L 12/13/23 07:24 Hgb 9.0 g/dL (12.0-16.0) L 12/13/23 07:24 Hct 27.2 % (36.0-47.0) L 12/13/23 07:24 MCV 86.8 fL (80.0-100.0) 12/13/23 07:24 MCH 28.9 pg (27.0-34.0) 12/13/23 07:24 MCHC 33.3 g/dL (33.0-35.0) 12/13/23 07:24 RDW 14.6 % (11.6-16.5) 12/13/23 07:24 Plt Count 355 X10^3/uL (150.0-450.0) 12/13/23 07:24 MPV 6.6 fL (7.4-11.0) L 12/13/23 07:24 Neut % (Auto) 71.0 % (42.0-75.0) 12/13/23 07:24 Lymph % (Auto) 17.8 % (21.0-51.0) L 12/13/23 07:24 [place] % (Auto) 10.0 % (0.0-13.0) 12/13/23 07:24 Eos % (Auto) 1.0 % (0.9-2.9) 12/13/23 07:24 Baso % (Auto) 0.2 % (0.2-1.0) 12/13/23 07:24 Neut # (Auto) 7.6 x10^3/uL (2.2-4.8) H 12/13/23 07:24 Lymph # (Auto) 1.9 X10^3/uL (1.3-2.9) 12/13/23 07:24 [place] # (Auto) 1.1 x10^3/uL (0.3-0.8) H 12/13/23 07:24 Eos # (Auto) 0.1 x10^3/uL (0.0-0.2) 12/13/23 07:24 Baso # (Auto) 0.0 X10^3/uL (0.0-0.1) 12/13/23 07:24 Absolute Nucleated RBC 0.0 /100WBC 12/13/23 07:24 Sodium 139 mmol/L (136-145) 12/13/23 07:24 Corrected Sodium 140 mmol/L (136-145) 12/13/23 07:24 Potassium 4.3 mmol/L (3.5-5.1) 12/13/23 07:24 Chloride 105 mmol/L (98-107) 12/13/23 07:24 Carbon Dioxide 26.9 mmol/L (21-32) 12/13/23 07:24 BUN 12 mg/dL (7-18) 12/13/23 07:24 Creatinine 0.71 mg/dL (0.55-1.02) 12/13/23 07:24 Est GFR (MDRD) Af Amer > 60 (>60) 12/13/23 07:24 Est GFR (MDRD) Non-Af > 60 (>60) 12/13/23 07:24 Glucose 137 mg/dL (65-99) H 12/13/23 07:24 Calcium 8.1 mg/dL (8.5-10.1) L 12/13/23 07:24 Corrected Calcium 9.5 mg/dL (8.5-10.1) 12/13/23 07:24 Total Bilirubin 0.20 mg/dL (0.2-1.0) 12/13/23 07:24 AST 39 Units/L (15-37) H 12/13/23 07:24 ALT 44 Units/L (12-78) 12/13/23 07:24 Alkaline Phosphatase 79 Units/L (46-116) 12/13/23 07:24 Total Protein 6.8 g/dL (6.4-8.2) 12/13/23 07:24 Albumin 2.3 g/dL (3.4-5.0) L 12/13/23 07:24 Globulin 4.5 g/dL (2.5-4.5) 12/13/23 07:24 Albumin/Globulin Ratio 0.5 Ratio (1.1-2.1) L 12/13/23 07:24 Assessment and Plan 1: Postoperative lap spring, lysis of adhesions and drainage.. To advance diet, keep the JASEN today and try oral pain medications.
[2023-12-13] MEDS: REGLAN INJ 10 MG VIAL IVP PRN (13:41)
[2023-12-13 17:07] VITALS: BMI 30.8
[2023-12-13] MEDS: D5 1/2 NS 1,000 ML 1,000 ML IV SCH (18:36)
[2023-12-13] MEDS: COLACE CAP 100 MG PO PRN (21:22)
[2023-12-14 06:23] LABS: BASOPHILS % (AUTO) 0.2 % (0.2-1.0); EOSINOPHILS % (AUTO) 0.2 % (0.9-2.9); HEMATOCRIT 25.1 % (36.0-47.0); HEMOGLOBIN 8.4 g/dL (12.0-16.0); LYMPHOCYTES # (AUTO) 2.1 X10^3/uL (1.3-2.9); LYMPHOCYTES % (AUTO) 15.8 % (21.0-51.0); MEAN CORPUSCULAR HEMOGLOBIN 28.7 pg (27.0-34.0); MEAN CORPUSCULAR HGB CONC 33.4 g/dL (33.0-35.0); MEAN PLATELET VOLUME 7.1 fL (7.4-11.0); MONOCYTES # (AUTO) 1.3 x10^3/uL (0.3-0.8); MONOCYTES % (AUTO) 9.9 % (0.0-13.0); NEUTROPHILS # (AUTO) 9.8 x10^3/uL (2.2-4.8); NEUTROPHILS % (AUTO) 73.9 % (42.0-75.0); PLATELET COUNT 352 X10^3/uL (150.0-450.0); RED BLOOD COUNT 2.92 X10^6/uL (3.5-5.4); RED CELL DISTRIBUTION WIDTH 14.6 % (11.6-16.5); WHITE BLOOD COUNT 13.2 X10^3/uL (3.6-10.0)
[2023-12-14 06:24] LABS: ALANINE AMINOTRANSFERASE 55 Units/L (12-78); ALBUMIN 2.1 g/dL (3.4-5.0); ALKALINE PHOSPHATASE 92 Units/L (46-116); ASPARTATE AMINO TRANSFERASE 41 Units/L (15-37); BLOOD UREA NITROGEN 6 mg/dL (7-18); CALCIUM 8.3 mg/dL (8.5-10.1); CARBON DIOXIDE 26.7 mmol/L (21-32); CHLORIDE 106 mmol/L (98-107); COR CA(FOR HYPOALB) 9.8 mg/dL (8.5-10.1); GLUCOSE 109 mg/dL (65-99); POTASSIUM 3.9 mmol/L (3.5-5.1); SODIUM 141 mmol/L (136-145); TOTAL PROTEIN 6.6 g/dL (6.4-8.2); eGFR NON BLACK RACES > 60 (>60)
[2023-12-14] MEDS ORDERED: CONSULT PHARMACY - POTASSIUM & MAGNESIUM XX SCH (08:00)
[2023-12-14] MEDS: MAG-OX TAB PO SCH (10:22)
[2023-12-14 11:22] VITALS: BP 130/80; PULSE 111; RESP 18; TEMP 99; O2SAT 95
== END 2023-12-14 13:30 | disposition home or self-care (01) ==
LOC: MED/SURG 08:27 → SURG1 08:27 → MED/SURG 13:39
PROVIDERS: ADMIT Surgery; ATTEND Surgery
DX: R10.84 Generalized abdominal pain; K80.19 Calculus of gallbladder with other cholecystitis with obstruction; Z85.118 Personal history of other malignant neoplasm of bronchus and lung; Z92.21 Personal history of antineoplastic chemotherapy; K66.0 Peritoneal adhesions (postprocedural) (postinfection); K82.8 Other specified diseases of gallbladder; Z85.3 Personal history of malignant neoplasm of breast; E83.42 Hypomagnesemia